=== PATIENT | male | born 1960 | race Caucasian/White ===

== ENCOUNTER → 2020-07-08 08:15 | Outpatient (BNVA) | payer BC, SELFPAY | PROVIDERS: PCP Family Medicine; Referring Provider Family Medicine; Visit Provider Nurse Practitioner Family | DX: Z76.89 Persons encountering health services in other specified circumstances (principal) ==

== ENCOUNTER → 2020-07-18 08:25 | Outpatient (BNVA) | payer BC, SELFPAY | PROVIDERS: PCP Family Medicine; Referring Provider Family Medicine; Visit Provider Internal Medicine Endocrinology, Diabetes & Metabolism | DX: Z76.89 Persons encountering health services in other specified circumstances (principal) ==

== ENCOUNTER → 2020-10-17 07:49 | Outpatient (BNVA) | payer BC, SELFPAY | PROVIDERS: PCP Family Medicine; Visit Provider Internal Medicine Endocrinology, Diabetes & Metabolism | DX: E11.65 Type 2 diabetes mellitus with hyperglycemia (principal); E11.21 Type 2 diabetes mellitus with diabetic nephropathy; E11.42 Type 2 diabetes mellitus with diabetic polyneuropathy; Z79.4 Long term (current) use of insulin; E66.9 Obesity, unspecified; E78.5 Hyperlipidemia, unspecified; I10 Essential (primary) hypertension; E55.9 Vitamin D deficiency, unspecified | CPT/HCPCS: 82947 ==

== ENCOUNTER 2020-11-06 08:58 | Outpatient (REF) | payer BC, SELFPAY ==
--- NOTE | 2020-11-06 09:03 | EMG_ITS ---
Bilateral tibial and peroneal motor studies were performed. Bilateral superficial peroneal and sural sensory studies were performed and tibial H-reflexes were obtained. Paraspinal muscles were tested with a needle. IMPRESSION: Severe sensory and motor somewhat asymmetrical, peripheral neuropathy with features of demyelination and axonal loss. I recommend formal neurology consultation for evaluation and exploration for the right cause. MD MUNIR Kwon/SAURAV / [id number]
== END 2020-11-06 08:59 | disposition home or self-care (01) ==
LOC: HO.NEURO 08:58
PROVIDERS: Visit Provider Family Medicine
DX: G90.09 Other idiopathic peripheral autonomic neuropathy (principal); I73.9 Peripheral vascular disease, unspecified; M54.9 Dorsalgia, unspecified
CPT/HCPCS: 95886; 95911

== ENCOUNTER 2020-11-28 10:36 | Outpatient (REF) | payer BC, SELFPAY ==
[2020-11-28 12:17] LABS: Alanine Aminotransferase 15 U/L (0-40); Anion Gap 16 (12-20); Aspartate Amino Transferase 10 U/L (5-37); Blood Urea Nitrogen 21 mg/dL (9-16); Carbon Dioxide 24 mmol/L (22-29); Chloride 104 mmol/L (96-108); Estimated Glomerular Filt Rate > 60; Potassium 4.4 mmol/L (3.3-5.1); Sodium 140 mmol/L (135-145)
== END 2020-11-28 10:37 | disposition home or self-care (01) ==
LOC: HO.LAB 10:36
PROVIDERS: PCP Family Medicine; Visit Provider Family Medicine
DX: I10 Essential (primary) hypertension (principal); E78.00 Pure hypercholesterolemia, unspecified; Z79.899 Other long term (current) drug therapy
CPT/HCPCS: 36415; 80051; 82550; 82565; 84450; 84460; 84520

== ENCOUNTER 2020-12-31 13:07 | Outpatient (REF) | payer OTHER, SELFPAY ==
[2020-12-31 15:01] LABS: Hematocrit 41.6 % (42-52); Mean Corpuscular HGB Conc 33.7 g/dl (31.0-36.0); Mean Corpuscular Hemoglobin 30.2 pg (27.0-33.0); Mean Corpuscular Volume 89.8 fL (80-98); Mean Platelet Volume 10.7 fL (9.4-12.4); Platelet Count 252 X10*3/uL (160-400); Red Blood Count 4.63 X10*6/uL (4.60-5.80); White Blood Count 5.9 X10*3/uL (4.8-10.8)
[2020-12-31 17:26] LABS: Creatinine Urine 315.78 mg/dL; Microalbum/Creatinine Ratio Ur 10.7 ug/mg cr
[2020-12-31 17:36] LABS: Alanine Aminotransferase 20 U/L (0-40); Albumin Level 4.2 g/dL (3.5-5.0); Alkaline Phosphatase 53 U/L (39-117); Anion Gap 14 (12-20); Aspartate Amino Transferase 14 U/L (5-37); Bilirubin Total 0.5 mg/dL (0.0-1.0); Blood Urea Nitrogen 22 mg/dL (9-16); Carbon Dioxide 26 mmol/L (22-29); Chloride 103 mmol/L (96-108); Cholesterol 173 mg/dL; Estimated Glomerular Filt Rate > 60; Glucose Fasting 177 mg/dL (60-99); HDL Cholesterol 43 mg/dL; LDL Cholesterol Calculated 106 mg/dl; Potassium 5.1 mmol/L (3.3-5.1); Sodium 138 mmol/L (135-145); Total Protein 7.2 g/dL (6.5-8.0); Triglycerides 123 mg/dL
[2020-12-31 17:48] LABS: Free T4 (Free Thyroxine) 0.85 ng/dL (0.71-1.85); Thyroid Stimulating Hormone 1.74 uIU/mL (0.32-4.0)
[2021-01-01 02:11] LABS: LDL Cholesterol Direct 116 mg/dL (<100)
[2021-01-01 05:35] LABS: Vitamin B12 243 pg/mL (200-900)
== END 2020-12-31 13:08 | disposition home or self-care (01) ==
LOC: HO.LAB 13:07
PROVIDERS: Internal Medicine Endocrinology, Diabetes & Metabolism; PCP Family Medicine; Visit Provider Nurse Practitioner Family
DX: R19.5 Other fecal abnormalities (principal); R14.0 Abdominal distension (gaseous); K59.00 Constipation, unspecified; E11.65 Type 2 diabetes mellitus with hyperglycemia
CPT/HCPCS: 36415; 80053; 80061; 82043; 82607; 83721; 84439; 84443; 85027; 99202

== ENCOUNTER → 2021-01-16 07:31 | Outpatient (BNVA) | payer OTHER, SELFPAY | PROVIDERS: PCP Family Medicine; Visit Provider Internal Medicine Endocrinology, Diabetes & Metabolism | DX: E11.65 Type 2 diabetes mellitus with hyperglycemia (principal); E11.21 Type 2 diabetes mellitus with diabetic nephropathy; E11.42 Type 2 diabetes mellitus with diabetic polyneuropathy; Z79.4 Long term (current) use of insulin; E66.9 Obesity, unspecified; E78.5 Hyperlipidemia, unspecified; I10 Essential (primary) hypertension; E55.9 Vitamin D deficiency, unspecified | CPT/HCPCS: 82947; 99212 ==

== ENCOUNTER 2021-02-17 06:24 | Day surgery (SDC) | payer OTHER, SELFPAY ==
--- NOTE | 2021-02-16 08:55 | HO.ANESPROP2 ---
HPI - Anesthesia Eval Consult details Narrative: 60yo M for Colonoscopy Plavix for PVD, h/o stroke History of uvulopalatopharyngoplasty PMFSH Active Problems Active Problems: All Active Problems (Updated 12/31/20 @ 14:39 by Jazmin Chopra, [facility]) Positive colorectal cancer screening using Cologuard test (Acute) Diabetic nephropathy associated with type 2 diabetes mellitus (Acute) Pulmonary nodules (Acute) Osteoarthritis (Acute) Obesity (BMI 30-39.9) (Acute) PVD (peripheral vascular disease) (Acute) Dyslipidemia (Acute) Hypertension (Acute) 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 of both eyes (Acute) Diabetic polyneuropathy associated with type 2 diabetes mellitus (Acute) [facility] (current) use of insulin (Acute) Vitamin D deficiency (Acute) Diabetes type 2, uncontrolled (Acute) Past Medical History Medical History Diabetes type 2, uncontrolled Diabetic nephropathy associated with type 2 diabetes mellitus Diabetic polyneuropathy associated with type 2 diabetes mellitus Dyslipidemia History of stroke Hypertension 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 of both eyes [facility] (current) use of insulin Obesity (BMI 30-39.9) Osteoarthritis Positive colorectal cancer screening using Cologuard test Pulmonary nodules PVD (peripheral vascular disease) Vitamin D deficiency Family History Family History Father Diabetes mellitus HTN (hypertension) Mother Lung disease Surgical History Surgical History History of uvulopalatopharyngoplasty Hx of appendectomy Hx of vein stripping Social History Social History Household Members: Spouse and Children Alcohol intake: current Alcohol intake frequency: does not drink Use of substances other than those prescribed or required for medical reasons: No Are you DNR?: No Advance Directives: No Advance Directives Information Provided: Yes Meds Allergies Allergy/AdvReac Type Severity Reaction Status Date / Time meperidine [From DEMEROL] Allergy Intermediate BECAME Verified 02/17/21 06:45 VIOLENT Home Medications Medication Instructions Recorded Confirmed Last Taken Type citalopram 40 mg tablet 40 mg PO DAILY 10/17/20 01/16/21 Unknown History clopidogrel 75 mg tablet 75 mg PO DAILY 10/17/20 01/16/21 02/16/21 18:00 History omeprazole 20 mg capsule,delayed 20 mg PO DAILY 10/17/20 01/16/21 Unknown History release pregabalin 200 mg capsule 200 mg PO BID 01/16/21 01/16/21 Unknown History Exam Exam Date and Time: February 16, 2021 1940 Assessment and Plan Assessment Anesthesia Assessment: Chart Reviewed
[2021-02-17 06:47] VITALS: BMI 37.6
[2021-02-17 06:55] VITALS: BP 134/94; PULSE 70; RESP 20; TEMP 36.3; O2SAT 98
[2021-02-17 07:05] LABS: Glucose, Whole Blood 98 mg/dL (60-115)
--- NOTE | 2021-02-17 07:05 | HO.ANESPROP2 ---
[facility] Active Problems Active Problems: All Active Problems (Updated 12/31/20 @ 14:39 by Jazmin Chopra, [facility]) Positive colorectal cancer screening using Cologuard test (Acute) Diabetic nephropathy associated with type 2 diabetes mellitus (Acute) Pulmonary nodules (Acute) Osteoarthritis (Acute) Obesity (BMI 30-39.9) (Acute) PVD (peripheral vascular disease) (Acute) Dyslipidemia (Acute) Hypertension (Acute) 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 of both eyes (Acute) Diabetic polyneuropathy associated with type 2 diabetes mellitus (Acute) [facility] (current) use of insulin (Acute) Vitamin D deficiency (Acute) Diabetes type 2, uncontrolled (Acute) Past Medical History Medical History Diabetes type 2, uncontrolled Diabetic nephropathy associated with type 2 diabetes mellitus Diabetic polyneuropathy associated with type 2 diabetes mellitus Dyslipidemia History of stroke Hypertension 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 of both eyes [facility] (current) use of insulin Obesity (BMI 30-39.9) Osteoarthritis Positive colorectal cancer screening using Cologuard test Pulmonary nodules PVD (peripheral vascular disease) Vitamin D deficiency Family History Family History Father Diabetes mellitus HTN (hypertension) Mother Lung disease Surgical History Surgical History History of uvulopalatopharyngoplasty Hx of appendectomy Hx of vein stripping Social History Social History Household Members: Spouse and Children Alcohol intake: current Alcohol intake frequency: does not drink Smoking Status: Former smoker Use of substances other than those prescribed or required for medical reasons: No Are you DNR?: No Advance Directives: No Advance Directives Information Provided: Yes Meds Allergies Allergy/AdvReac Type Severity Reaction Status Date / Time meperidine [From DEMEROL] Allergy Intermediate BECAME Verified 02/17/21 06:45 VIOLENT Active Medications: Current Medications Generic Name Dose Route Start Last Admin Trade Name Freq PRN Reason Stop Dose Admin Lactated Ringer's 1,000 mls @ 100 mls/hr 02/17/21 06:45 Lr IVCONT .Q10H [facility] Home Medications Medication Instructions Recorded Confirmed Last Taken Type citalopram 40 mg tablet 40 mg PO DAILY 10/17/20 01/16/21 Unknown History clopidogrel 75 mg tablet 75 mg PO DAILY 10/17/20 01/16/21 02/16/21 18:00 History omeprazole 20 mg capsule,delayed 20 mg PO DAILY 10/17/20 01/16/21 Unknown History release pregabalin 200 mg capsule 200 mg PO BID 01/16/21 01/16/21 Unknown History Exam Exam Date and Time: February 17, 2021 0705 Height,Weight and Vital Signs: Height 5 ft 11 in Weight 122.47 kg Last Vital Signs Temp 97.3 F 02/17/21 06:55 Pulse 70 02/17/21 06:55 Resp 20 02/17/21 06:55 BP 134/94 H 02/17/21 06:55 Pulse Ox 98 02/17/21 06:55 Airway Mallampati Class: III TM Dist: >3cm Neck ROM: Full Denture: Upper Partial: Lower Heart: RRR Lungs: CTA
[2021-02-17] MEDS: Lactated Ringers 1,000 ML 100 ML IVCONT (07:12)
--- NOTE | 2021-02-17 07:36 | P.OP_ITS ---
Operative Note Operative Note Date of Service: 02/17/21 Narrative: Pre-op diagnosis: Colon cancer screening, positive Cologuard test Post-op diagnosis: other (Colon polyps, diverticulosis) Procedure: COLONOSCOPY TILL CECUM WITH SNARE POLYPECTOMY Consent: Indications for the procedure and potential complications of bleeding, perforation, reaction to medications and missed diagnosis were discussed with the patient and informed consent was obtained. Instrument: Olympus CF H 190 L variable stiffness adult colonoscope Monitoring: Vital signs and clinical assessment, intermittent blood pressure monitoring, continuous EKG monitoring, Pulse oximetry and Carbon Dioxide monitoring were done throughout the procedure. Colon withdrawl time was 25 minutes. Procedure: The patient was placed in the left lateral decubitis position and pre-procedure medications were administered. After a digital rectal examination of the ano-rectum, the video colonoscope was inserted into the rectum and advanced through the colon to the cecum. The colonoscope was slowly withdrawn in a retrograde panoramic fashion and the colon mucosa was carefully examined including a retroflexed view of the rectum. Findings and interventions are described below. Procedure Difficulty: Without difficulty Findings: Terminal Ileum: Not evaluated Cecum: Diverticulosis Ascending Colon: A 12 mm sessile polyp in the distal AC removed with a hot snare - polyp was not retrieved. A 2 cm sessile polyp in the distal AC removed with a hot snare. Moderate diverticulosis. Transverse Colon: Moderate diverticulosis Descending Colon: Moderate diverticulosis Sigmoid Colon: Two 10 to 20 mm sessile polyps - removed with a hot snare. A 25 mm pedunculated polyp removed with a hot snare. Moderate diverticulosis Rectum: Multiple diminutive appearing polyps - 2 larger polyps removed with the hot and cold snare. Ano-rectum: Normal Colon preparation: Good after copious irrigation Impression and Post Procedure Diagnosis: Colonoscopy Findings: Seven medium to large sized polyps removed Moderate diverticulosis seen in the entire colon Plan: Await pathology results Patient has an appointment on 03/06/21 in the GI Clinic with Jazmin Chopra FNP-PAPO. Repeat Colonoscopy interval based on path results - in 1-2 years if polyps are adenomatous and 10 years if polyps are hyperplastic. Above findings were reviewed with the patient and colon polyps and diverti culosis handouts were given in the discharge area Surgeon: Torrey Maxwell MD Anesthesia: MAC (Dr Godfrey) Was an Credit Collections Analyst used for this Procedure?: Yes Credit Collections Analyst: Marj Connell Estimated blood loss (mL): 0 Pathology: other (A. ASCENDING COLON POLYPS B. SIGMOID POLYP C. SIGMOID POLYP AT 30CM D. RECTAL POLYPS) Condition: stable Disposition: PACU
--- NOTE | 2021-02-17 07:36 | MHC.SHP ---
Pre-Procedural Eval Section A The patient is an INPATIENT: No The History & Physical has been completed within 30 days and I have reviewed it.: No Section B Chief Complaint: Screening Details of Present Illness: colon cancer screening, positive cologuard test Relevant Family History (Specify if Yes): No Relevant Social History: None Present Medications: see Short Stay Collaborative assessment Medical History: Significant History (Diabetes type 2, uncontrolled Diabetic nephropathy associated with type 2 diabetes mellitus Diabetic polyneuropathy associated with type 2 diabetes mellitus Dyslipidemia History of stroke Hypertension 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 of both eyes [facility] (current) use of insulin Obesity (BMI 30-39.9) Oste) History of Previous Operations: Relevant previous surgery/procedure and date(s) (History of uvulopalatopharyngoplasty Hx of appendectomy Hx of vein stripping) Allergies: Allergies Allergy/AdvReac Type Severity Reaction Status Date / Time meperidine [From DEMEROL] Allergy Intermediate BECAME Verified 02/17/21 06:45 VIOLENT Review of Systems Sugical H&P ROS: Negative: Constitution, Cardiovascular and Respiratory and Yes, Specify: Gastrointestinal (constipation) Exam Surgical H&P Exam: Normal: Heart, Normal: Lungs, Normal: Extremities and Normal: Abdomen Plan Diagnosis/Plan: Unchanged I have reviewed the history and physical and performed a pertinent physical examination on my patient. No changes have occurred unless specified.
[2021-02-17 08:32] VITALS: BP 126/67; PULSE 79; RESP 16; TEMP 36.1; O2SAT 98
[2021-02-17 08:47] VITALS: BP 123/78; PULSE 74; RESP 16; TEMP 36.1; O2SAT 96
--- NOTE | 2021-02-17 12:53 | HO.POSTANES ---
Post Anesthesia Evaluation Post Anesthesia Evaluation Vital Signs: Vital Signs Temp Pulse Resp BP Pulse Ox 02/17/21 08:47 97 F 74 16 123/78 96 02/17/21 08:32 97 F 79 16 126/67 98 02/17/21 06:55 97.3 F 70 20 134/94 H 98 Anesthesia: Monitored Mental Status: Awake Pain Control: Satisfactory Nausea/Vomiting: None Hydration: Adequate Anesthesia-Related Issues: No Anes. Related Issues
== END 2021-02-17 09:21 | disposition home or self-care (01) ==
PROVIDERS: PCP Family Medicine; Visit Provider Internal Medicine Gastroenterology
PROC: 0DJD8ZZ Inspection of Lower Intestinal Tract, Via Natural or Artificial Opening Endoscopic (ICD-10-PCS; CPT 45378; principal; 2021-02-17 08:30)
DX: R19.5 Other fecal abnormalities (principal); D12.2 Benign neoplasm of ascending colon; D12.5 Benign neoplasm of sigmoid colon; K62.1 Rectal polyp; K57.30 Diverticulosis of large intestine without perforation or abscess without bleeding; I10 Essential (primary) hypertension; E11.42 Type 2 diabetes mellitus with diabetic polyneuropathy; E11.21 Type 2 diabetes mellitus with diabetic nephropathy; Z79.4 Long term (current) use of insulin; H35.033 Hypertensive retinopathy, bilateral; E78.5 Hyperlipidemia, unspecified; Z79.899 Other long term (current) drug therapy
CPT/HCPCS: 45385; 82947; 88305

== ENCOUNTER → 2021-03-06 11:33 | Outpatient (BNVA) | payer OTHER, SELFPAY | PROVIDERS: Referring Provider Family Medicine; Visit Provider Nurse Practitioner Family | DX: D36.9 Benign neoplasm, unspecified site (principal); Z98.890 Other specified postprocedural states | CPT/HCPCS: 99212 ==

== ENCOUNTER → 2021-04-16 07:40 | Outpatient (BNVA) | payer BC, SELFPAY | PROVIDERS: Visit Provider Internal Medicine Endocrinology, Diabetes & Metabolism | DX: E11.65 Type 2 diabetes mellitus with hyperglycemia (principal); E11.21 Type 2 diabetes mellitus with diabetic nephropathy; E11.42 Type 2 diabetes mellitus with diabetic polyneuropathy; E66.9 Obesity, unspecified; E78.5 Hyperlipidemia, unspecified; E55.9 Vitamin D deficiency, unspecified; I10 Essential (primary) hypertension; Z79.4 Long term (current) use of insulin | CPT/HCPCS: 82947 ==

== ENCOUNTER 2021-09-22 08:20 | Outpatient (REF) | payer BC, SELFPAY ==
--- NOTE | ~2021-09-22 | XR_ITS ---
EXAMINATION: XR knee LT 4V, XR knee RT 4V CLINICAL INFORMATION: Reason for Exam BILATERAL KNEE PAIN COMPARISON: Right knee MRI 06/26/2016. Bilateral knee radiographs 06/24/2016. TECHNIQUE: 4 view series of the left and right knees. FINDINGS: Left knee: Moderate lateral compartment joint space narrowing and mild osteophytosis of the lateral compartment is visualized. Minimal osteophytosis of the medial femoral condyle without joint space narrowing of the medial compartment. Mild osteophytosis of the lateral patellar facet.. No joint effusion. Mild scattered vascular calcifications. Partially visualized endovascular stent within the distal thigh. The previous noted ossicle within the distal patellar ligament is again visualized. Right knee: Mild joint space narrowing and minimal osteophytosis of the lateral patellar facet is noted. No arthropathic changes of the medial or lateral compartments visualized. XR/XR knee RT 4V IMPRESSION: Left knee: *Mild-moderate tricompartmental osteoarthritis with findings most pronounced the lateral compartment. Findings are progressed compared with 06/24/2016. Right knee: *Mild patellofemoral osteoarthritis slightly progressed compared with 06/24/2016.
--- NOTE | ~2021-09-22 | XR_ITS ---
EXAMINATION: XR knee LT 4V, XR knee RT 4V CLINICAL INFORMATION: Reason for Exam BILATERAL KNEE PAIN COMPARISON: Right knee MRI 06/26/2016. Bilateral knee radiographs 06/24/2016. TECHNIQUE: 4 view series of the left and right knees. FINDINGS: Left knee: Moderate lateral compartment joint space narrowing and mild osteophytosis of the lateral compartment is visualized. Minimal osteophytosis of the medial femoral condyle without joint space narrowing of the medial compartment. Mild osteophytosis of the lateral patellar facet.. No joint effusion. Mild scattered vascular calcifications. Partially visualized endovascular stent within the distal thigh. The previous noted ossicle within the distal patellar ligament is again visualized. Right knee: Mild joint space narrowing and minimal osteophytosis of the lateral patellar facet is noted. No arthropathic changes of the medial or lateral compartments visualized. XR/XR knee LT 4V IMPRESSION: Left knee: *Mild-moderate tricompartmental osteoarthritis with findings most pronounced the lateral compartment. Findings are progressed compared with 06/24/2016. Right knee: *Mild patellofemoral osteoarthritis slightly progressed compared with 06/24/2016.
[2021-09-22 09:53] LABS: Alanine Aminotransferase 15 U/L (0-40); Anion Gap 10 (12-20); Aspartate Amino Transferase 14 U/L (5-37); Blood Urea Nitrogen 17 mg/dL (9-16); Carbon Dioxide 27 mmol/L (22-29); Chloride 106 mmol/L (96-108); Estimated Glomerular Filt Rate > 60; Potassium 4.6 mmol/L (3.3-5.1); Sodium 138 mmol/L (135-145)
== END 2021-09-22 08:21 | disposition home or self-care (01) ==
LOC: HO.LAB 08:20
PROVIDERS: Visit Provider Family Medicine
DX: I10 Essential (primary) hypertension (principal); E78.00 Pure hypercholesterolemia, unspecified; M25.562 Pain in left knee; M25.561 Pain in right knee; Z79.899 Other long term (current) drug therapy
CPT/HCPCS: 36415; 73564; 80051; 82550; 82565; 84450; 84460; 84520

== ENCOUNTER → 2021-09-23 10:59 | Outpatient (BNVA) | payer BC, SELFPAY | PROVIDERS: PCP Family Medicine; Visit Provider Nurse Practitioner Gerontology ==

== ENCOUNTER 2021-09-24 10:28 | Outpatient (REF) | payer BC, SELFPAY ==
[2021-09-24 11:46] LABS: Estimated Average Glucose 143 mg/dL; Hemoglobin A1c % 6.6 %
== END 2021-09-24 10:29 | disposition home or self-care (01) ==
LOC: HO.LAB 10:28
PROVIDERS: PCP Family Medicine; Visit Provider Nurse Practitioner Gerontology
DX: E11.65 Type 2 diabetes mellitus with hyperglycemia (principal)
CPT/HCPCS: 36415; 83036

== ENCOUNTER → 2021-10-22 08:55 | Outpatient (BNVA) | payer BC, SELFPAY | PROVIDERS: PCP Family Medicine; Visit Provider Registered Nurse Diabetes Educator ==

== ENCOUNTER 2021-12-14 08:33 | Outpatient (REF) | payer BC, SELFPAY ==
[2021-12-14 10:09] LABS: Estimated Average Glucose 140 mg/dL; Hemoglobin A1c % 6.5 %
[2021-12-14 10:20] LABS: Alanine Aminotransferase 19 U/L (0-40); Albumin Level 4.1 g/dL (3.5-5.0); Alkaline Phosphatase 50 U/L (39-117); Anion Gap 13 (12-20); Aspartate Amino Transferase 18 U/L (5-37); Bilirubin Total 0.5 mg/dL (0.0-1.0); Blood Urea Nitrogen 17 mg/dL (9-16); Calcium 9.6 mg/dL (8.4-10.2); Carbon Dioxide 26 mmol/L (22-29); Chloride 102 mmol/L (96-108); Cholesterol 187 mg/dL; Estimated Glomerular Filt Rate > 60; Glucose Fasting 135 mg/dL (60-99); HDL Cholesterol 39 mg/dL; LDL Cholesterol Calculated 121 mg/dl; Potassium 4.8 mmol/L (3.3-5.1); Sodium 136 mmol/L (135-145); Total Protein 7.3 g/dL (6.5-8.0); Triglycerides 138 mg/dL
[2021-12-14 10:45] LABS: Vitamin D 25-OH Total 24.4 ng/mL (>30)
[2021-12-16 00:01] LABS: LDL Cholesterol Direct 131 mg/dL (<100)
== END 2021-12-14 08:34 | disposition home or self-care (01) ==
LOC: HO.LAB 08:33
PROVIDERS: PCP Family Medicine; Visit Provider Nurse Practitioner Gerontology
DX: E11.65 Type 2 diabetes mellitus with hyperglycemia (principal); E55.9 Vitamin D deficiency, unspecified
CPT/HCPCS: 36415; 80053; 80061; 82043; 82306; 83036; 83721

== ENCOUNTER → 2021-12-25 08:23 | Outpatient (BNVA) | payer BC, SELFPAY | PROVIDERS: PCP Family Medicine; Visit Provider Nurse Practitioner Gerontology | DX: E11.65 Type 2 diabetes mellitus with hyperglycemia (principal); E66.9 Obesity, unspecified; E78.5 Hyperlipidemia, unspecified; I10 Essential (primary) hypertension; E55.9 Vitamin D deficiency, unspecified; Z79.4 Long term (current) use of insulin | CPT/HCPCS: 82947 ==

== ENCOUNTER → 2022-01-28 09:00 | Outpatient (BNVA) | payer BC, SELFPAY | PROVIDERS: PCP Family Medicine; Visit Provider Registered Nurse Diabetes Educator | DX: Z13.89 Encounter for screening for other disorder (principal) ==

== ENCOUNTER 2022-04-06 08:02 | Outpatient (RCR) | payer OTHER, SELFPAY | END 2022-10-11 14:28 | disposition home or self-care (01) | LOC: HO.WCC 08:02 | PROVIDERS: PCP Family Medicine; Visit Provider Surgery | DX: E11.621 Type 2 diabetes mellitus with foot ulcer (principal); L97.524 Non-pressure chronic ulcer of other part of left foot with necrosis of bone; Z79.2 Long term (current) use of antibiotics; Z79.899 Other long term (current) drug therapy | CPT/HCPCS: 11042; 11044; 87070; 87073; 87077; 87147; 87186; 87205; 88305; 88307; 88311; 97597 ==

== ENCOUNTER 2022-04-24 11:12 | Outpatient (REF) | payer OTHER, SELFPAY ==
--- NOTE | ~2022-04-24 | XR_ITS ---
EXAMINATION: XR FOOT, RIGHT CLINICAL INFORMATION: Nonhealing wound. Rule out osteomyelitis. COMPARISON: Right foot x-rays 04/13/2019 TECHNIQUE: AP, lateral, and oblique views of the right foot. FINDINGS: Bones of the midfoot are well aligned. There is no tarsal, metatarsal or phalangeal fracture. Mild degenerative changes of the first TMT and MTP joints with mild degenerative changes of scattered IP joints. Metallic linear foreign body within the soft tissues between the second and third proximal phalanges is again noted and demonstrates interval fracturing. There is some soft tissue swelling of the first toe. Ill-defined hyperdensity overlying the first toe is nonspecific but felt to represent an overlying bandage. There is no underlying osseous abnormality to suggest osteomyelitis. XR/XR foot RT min 3V IMPRESSION: -Soft tissue swelling of the first toe without underlying cortical irregularity to suggest osteomyelitis. Some ill-defined hyperdensity overlying the first toe is nonspecific but felt to represent an overlying bandage. Clinical correlation recommended.
[2022-04-24 13:30] LABS: MANUAL DIFF FLAG NO
[2022-04-24 13:33] LABS: Basophils Percent Auto 0.6 % (0-2); Eosinophils Absolute Auto 0.2 X10*3/uL (0.0-0.4); Hematocrit 40.2 % (42.0-52.0); Hemoglobin 13.7 g/dl (14.0-18.0); Imm Gran Abs Auto 0.01 X10*3/uL (0.00-0.03); Imm Gran Pct Auto 0.2 % (0.0-0.4); Lymphocytes Absolute Auto 1.3 X10*3/uL (1.2-4.9); Lymphocytes Percent Auto 25.9 % (20-40); Mean Corpuscular HGB Conc 34.1 g/dl (31.0-36.0); Mean Corpuscular Volume 88.2 fL (80.0-98.0); Mean Platelet Volume 10.9 fL (9.4-12.4); Monocytes Absolute Auto 0.5 X10*3/uL (0.1-1.2); Monocytes Percent Auto 9.5 % (2-11); Neutrophils Percent Auto 60.8 % (45-73); Platelet Count 247 X10*3/uL (160-400); Red Blood Count 4.56 X10*6/uL (4.60-5.80); Red Cell Distribution Width 12.3 % (11.0-16.0)
[2022-04-24 13:43] LABS: Estimated Average Glucose 151 mg/dL; Hemoglobin A1c % 6.9 %
[2022-04-24 13:44] LABS: Anion Gap 13 (12-20); Blood Urea Nitrogen 19 mg/dL (9-16); C Reactive Protein 0.27 mg/dL (< or = 0.50); Calcium 8.8 mg/dL (8.4-10.2); Carbon Dioxide 27 mmol/L (22-29); Chloride 105 mmol/L (96-108); Estimated Glomerular Filt Rate > 60; Glucose Random 182 mg/dL (60-115); Potassium 4.4 mmol/L (3.3-5.1); Sodium 141 mmol/L (135-145)
[2022-04-24 14:16] LABS: Erythrocyte Sedimentation Rate 9 MM/HR (0-15)
== END 2022-04-24 11:13 | disposition home or self-care (01) ==
LOC: HO.HMGCX 11:12
PROVIDERS: PCP Family Medicine; Visit Provider Physician Assistant
DX: L97.512 Non-pressure chronic ulcer of other part of right foot with fat layer exposed (principal); L97.522 Non-pressure chronic ulcer of other part of left foot with fat layer exposed
CPT/HCPCS: 36415; 73630; 80048; 83036; 84134; 85025; 85652; 86140

== ENCOUNTER 2022-06-22 11:45 | Emergency (ER) | payer OTHER, SELFPAY ==
[2022-06-22 11:56] VITALS: BP 147/80; PULSE 71; RESP 18; TEMP 37.4; O2SAT 98; BMI 36.2
[2022-06-22 13:38] LABS: MANUAL DIFF FLAG NO
[2022-06-22 13:48] LABS: Basophils Percent Auto 0.5 % (0-2); Eosinophils Percent Auto 0.5 % (0-4); Hematocrit 42.7 % (42.0-52.0); Hemoglobin 14.4 g/dl (14.0-18.0); Imm Gran Abs Auto 0.01 X10*3/uL (0.00-0.03); Imm Gran Pct Auto 0.2 % (0.0-0.4); Lymphocytes Absolute Auto 1.1 X10*3/uL (1.2-4.9); Lymphocytes Percent Auto 24.9 % (20-40); Mean Corpuscular HGB Conc 33.7 g/dl (31.0-36.0); Mean Corpuscular Hemoglobin 29.6 pg (27.0-33.0); Mean Corpuscular Volume 87.7 fL (80.0-98.0); Mean Platelet Volume 10.1 fL (9.4-12.4); Monocytes Absolute Auto 0.5 X10*3/uL (0.1-1.2); Monocytes Percent Auto 12.4 % (2-11); Neutrophils Absolute Auto 2.7 x10*3/uL (2.0-8.3); Neutrophils Percent Auto 61.5 % (45-73); Platelet Count 191 X10*3/uL (160-400); Red Blood Count 4.87 X10*6/uL (4.60-5.80); Red Cell Distribution Width 12.6 % (11.0-16.0); White Blood Count 4.3 X10*3/uL (4.8-10.8)
[2022-06-22 13:56] LABS: Anion Gap 19 (12-20); Blood Urea Nitrogen 18 mg/dL (9-16); Calcium 8.9 mg/dL (8.4-10.2); Carbon Dioxide 21 mmol/L (22-29); Chloride 101 mmol/L (96-108); Creatinine Clr Calc Pharmacy 96.2; Estimated Glomerular Filt Rate > 60; Glucose Random 135 mg/dL (60-115); Potassium 3.8 mmol/L (3.3-5.1); Sodium 137 mmol/L (135-145)
[2022-06-22 14:12] LABS: COVID-19 Test Negative (Negative); IDNOW Serial# 16C4AD1C
[2022-06-22 15:49] VITALS: BP 147/77; PULSE 77; RESP 18; TEMP 36.5; O2SAT 99
== END 2022-06-22 22:39 | disposition left against medical advice (07) ==
PROVIDERS: Emergency Provider Emergency Medicine; PCP Family Medicine
DX: R11.2 Nausea with vomiting, unspecified (principal); Z20.822 Contact with and (suspected) exposure to COVID-19; Z79.899 Other long term (current) drug therapy
CPT/HCPCS: 80048; 85025; 87635; 99282; 99283

== ENCOUNTER 2022-06-24 18:45 | Emergency (ER) | payer OTHER, SELFPAY ==
--- NOTE | ~2022-06-24 | CT_ITS ---
EXAMINATION: CT ABDOMEN AND PELVIS WITHOUT CONTRAST CLINICAL INFORMATION: Diffuse abdominal pain. COMPARISON: Multiple priors, most recent abdominal ultrasound dated 11/16/[address] abdomen/pelvis dated 10/09/2016. TECHNIQUE: Multidetector volumetric imaging was performed from the superior aspect of the liver through the pubic symphysis. Sagittal and coronal reformatted images were obtained on the technologist's workstation. This CT examination was performed using dose optimization techniques as appropriate, variously including the following: *Automated exposure control. *Adjustment of mA and/or kV according to patient size (this includes techniques or standardized protocols for targeted exams where dose is matched to indication/reason for exam; i.e. extremities or head). *Use of iterative reconstruction technique. DLP: 1044 mGy-cm FINDINGS: LUNG BASES: Linear scarring within the left lung base. LIVER, GALLBLADDER, AND BILIARY TREE: The liver is normal in size, shape, and attenuation. No focal hepatic lesion or biliary ductal dilatation is present. The gallbladder is unremarkable with no evidence of radiopaque gallstones, gallbladder wall thickening, or obvious pericholecystic inflammatory changes. PANCREAS: Atrophic. SPLEEN: Unremarkable. ADRENAL GLANDS: Unremarkable. KIDNEYS AND URETERS: The kidneys are normal in size and attenuation. Anterior right midpole renal parenchymal scarring and calcification, unchanged. No hydronephrosis, hydroureter, or calculi seen. No perinephric stranding. BLADDER: Unremarkable. GASTROINTESTINAL TRACT: Sigmoid diverticulosis without evidence of acute diverticulitis. No bowel wall thickening or inflammatory change. No small or large bowel obstruction. Appendix not identified, however, no lower quadrant inflammatory change. PERITONEAL CAVITY: No intra-abdominal free air or free fluid. No intra-abdominal mass or organized fluid collection/abscess formation. ABDOMINAL WALL: No significant hernia is appreciated. LYMPH NODES: No significant lymphadenopathy. VASCULAR: No abdominal aortic dilatation. Vascular stent grafts within the common iliac veins. Scattered atherosclerotic calcifications. PELVIC VISCERA: The prostate and seminal vesicles are unremarkable. OSSEOUS STRUCTURES: Unremarkable. CT/CT abdomen pelvis wo IV con IMPRESSION: 1. Sigmoid diverticulosis without evidence of acute diverticulitis. No small or large bowel obstruction. 2. No intra-abdominal mass, lymphadenopathy, or ascites. 3. No renal or ureteral stone. No hydronephrosis or hydroureter. Fleischner guidelines were followed.
--- NOTE | 2022-06-24 18:54 | ECG_ITS ---
Test Reason : NAUSEA/DIARRHEA Blood Pressure : / mmHG Vent. Rate : 059 BPM Atrial Rate : 059 BPM P-R Int : 178 ms QRS Dur : 098 ms QT Int : 470 ms P-R-T Axes : 053 -15 -15 degrees QTc Int : 465 ms Sinus bradycardia Minimal voltage criteria for LVH, may be normal variant ( R in aVL ) Inferior infarct , age undetermined Abnormal ECG No previous ECGs available Referred By: Ana Zamarripa Electronically Signed By:JESSENIA FARR
[2022-06-24 18:58] VITALS: BP 172/92; BP 190/89; PULSE 61; PULSE 63; RESP 22; O2SAT 99; BMI 36.2
--- NOTE | 2022-06-24 19:08 | ED.ABDPAIN ---
HPI - Abdominal Pain General Chief Complaint: Nausea/Vomiting/Diarrhea Stated Complaint: Abdominal pain Time Seen by Provider: 06/24/22 18:50 Source: patient and EMS Mode of arrival: EMS Limitations: no limitations History of Present Illness HPI narrative: patient comes to the emergency room complaining of 4-5 days of nausea, vomiting, diarrhea. Patient states that he does not have significant abdominal pain. Patient denies fever chills, no URI or UTI symptoms. Patient states that before his symptoms started, he ate lobster brisk. All of patient's symptoms started a few hours after eating. Also, patient has been treated with cephalexin for tooth infection for approximately 1 week. Related Data Home Medications Medication Instructions Recorded Confirmed citalopram 40 mg tablet 40 mg PO DAILY 10/17/20 12/25/21 clopidogrel 75 mg tablet 75 mg PO DAILY 10/17/20 09/23/21 pregabalin 200 mg capsule 200 mg PO BID 01/16/21 12/25/21 Previous Rx's Medication Instructions Recorded lactobacillus combination no.8 3 3,000 mmu cells PO DAILY #90 caps 03/06/21 billion cell capsule (Adult Probiotic) FreeStyle Precision Nabil Strips #25 ea 04/16/21 (blood sugar diagnostic) pen needle, diabetic 32 gauge x #400 ea 04/16/21 (BD Deysi 2nd Gen Pen Needle) flash glucose sensor (FreeStyle #1 ea 09/24/21 Hema 2 Sensor kit) cholecalciferol (vitamin D3) 50 50 mcg PO DAILY #90 caps 12/25/21 mcg (2,000 unit) capsule insulin glargine U-300 conc 300 50 unit (0.1667 mL) subcut DAILY 12/25/21 unit/mL (1.5 mL) subcutaneous pen 90 days #20 mL (Toujeo SoloStar U-300 Insulin) insulin lispro 100 unit/mL See Rx Instructions subcut QIDACHS 02/16/22 subcutaneous pen (Humalog KwikPen #45 mL (U-100) Insulin) atorvastatin 20 mg tablet 20 mg PO DAILY #90 tabs 04/20/22 flash glucose sensor (FreeStyle #2 ea 04/29/22 Hema 2 Sensor kit) semaglutide 1 mg/dose (4 mg/3 mL) 1 mg (0.75 mL) subcut QWEEK 90 05/06/22 subcutaneous pen injector (Ozempic) days #9 mL amlodipine 2.5 mg tablet 2.5 mg PO DAILY 90 days #90 tabs 05/17/22 loperamide 2 mg capsule 2 mg PO Q4H PRN loose stool #14 06/24/22 caps prochlorperazine maleate 5 mg 5 mg PO TID PRN nausea and 06/24/22 tablet (Compazine) vomiting #14 tabs Allergies Allergy/AdvReac Type Severity Reaction Status Date / Time meperidine [From DEMEROL] Allergy Intermediate BECAME Verified 12/25/21 08:57 VIOLENT Review of Systems Review of Systems Constitutional : No Weight loss, No Fever, No Chills, No Night Sweats, No Fatigue, No Malaise ENT/Mouth : No Hearing loss, No Ear Pain, No Nasal Congestion, No Sinus Pain, No Hoarseness, No sore throat, No Rhinorrhea, No Swallowing Difficulty Eyes: No Eye Pain, No Swelling, No Redness, No Foreign Body, No Discharge, No Vision Changes Cardiovascular : No Chest Pain, No SOB, No Dyspnea on Exertion, No Orthopnea, No Edema, No Palpitations Respiratory : No Cough, No Sputum, No Wheezing, No Smoke Exposure, No Dyspnea Gastrointestinal : complaining of nausea, vomiting, diarrhea.No Constipation, No abdominal Pain, No Hematochezia, No Melena Genitourinary : no irregular bleeding, No Dysuria, No Urinary Frequency, No Hematuria, No Urinary Incontinence, No Urgency, No Flank Pain, No Urinary Flow Changes, No Hesitancy Musculoskeletal : No joint pain, No Myalgias, No Joint Swelling Skin : No Skin Lesions, No rash Neuro : No Weakness, No Numbness, No Paresthesias, No Loss of Consciousness, No Dizziness, No Headache Psych : No Anxiety/Panic, No Depression, No SI/HI/AH/VH, No Social Issues, Heme/Lymph: No Bruising, No Bleeding,No Lymphadenopathy Endocrine : No Polyuria, No Polydipsia, No Temperature Intolerance PMFSH Past Medical History Medical History Diabetes type 2, uncontrolled Diabetic nephropathy associated with type 2 diabetes mellitus Diabetic polyneuropathy associated with type 2 diabetes mellitus Dyslipidemia History of stroke Hypertension 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 of both eyes correction (current) use of insulin Obesity (BMI 30-39.9) Osteoarthritis Positive colorectal cancer screening using Cologuard test Pulmonary nodules PVD (peripheral vascular disease) Tubular adenoma Vitamin D deficiency Surgical History History of uvulopalatopharyngoplasty Hx of appendectomy Hx of vein stripping Family History Family History Father Diabetes mellitus HTN (hypertension) Mother Lung disease Social History Social History Household Members: Spouse and Children Alcohol intake: current Alcohol intake frequency: does not drink Patient Tobacco Use Status: Former Tobacco user Tobacco use type: Cigarette Cigarette Packs Per Day: 1 Years Smoked: 30 Advance Directives: No Advance Directives Information Provided: No Physical Exam ED Vital Signs: Vital Signs - 24 hr 06/24/22 18:58 06/24/22 20:00 Temperature 98.0 F Pulse Rate 61 59 Respiratory Rate 22 H 18 Blood Pressure 190/89 H 176/96 H Pulse Oximetry 99 98 Oxygen Delivery Method Room Air Room Air BMI result Body Mass Index 36.2 Const Other: Appearance: Alert. Oriented X3. Uncomfortable, seems nauseous Eyes: Pupils equal, round and reactive to light. ENT: Pharynx normal. Neck: Normal inspection. Neck supple. No lymph nodes noted. No crepitus CVS: Normal heart rate and rhythm. Pulses normal. Normal S1 and S2 Respiratory: No respiratory distress. Breath sounds normal. No Wheezing. No rales Abdomen: Soft and nontender. No rigidity. No distention. Skin: Skin warm and dry. Normal skin color. Normal skin turgor. Extremities: No lower extremity edema. No Lacerations. No Rash Neuro: Oriented X 3. No motor deficit. No sensory deficit. Moving all extremities. No slurred speech. CN 2 through 12 grossly intact Psych: calm, cooperative, normal affect Course Course Course Narrative: all of patient's labs and imaging pending. Per EMS, patient EKG showed prolonged QTC, patient receiving IV Compazine And IV fluids at this time. Patient received 600 cc of normal saline by EMS patient's white blood cell count is 4.3, lactic acid within normal limits, patient has no fever or chills, no hypotension. Sepsis is not suspected, CT scan does not show any acute abnormalities. Patient likely having gastroenteritis. We attempted to get a stool sample to rule out C difficile. However, the patient did not have any diarrhea while he was in the emergency room, unlikely to be C diff. patient's troponin is 36.6, slightly bumped. I discussed with the patient that ideally we should check his troponin again at 23:00, 3 hours from the original troponin. Patient states that he has no chest pain or shortness of breath, patient declined to stay. EKG does not show any acute abnormalities, Sinus bradycardia, heart rate 59, nonspecific T-wave abnormalities in leads 3 and AVF, no ST segment depression or elevation. A 2 L of IV fluids was offered. Patient states that he feels weak but he feels okay to be discharged at this time, declined a 2 L of IV fluids patient's magnesium was slightly decreased at 1.5, patient was given p.o. magnesium oxide. MDM - Abdominal Pain Lab Data Result diagrams: 06/24/22 19:49 06/24/22 19:50 Labs: Lab Results 06/24/22 06/24/22 06/24/22 Range/Units 19:49 19:49 19:49 WBC 4.3 L (4.8-10.8) X10*3/uL RBC 4.54 L (4.60-5.80) X10*6/uL Hgb 13.4 L (14.0-18.0) g/dl Hct 38.7 L (42.0-52.0) % MCV 85.2 (80.0-98.0) fL MCH 29.5 (27.0-33.0) pg MCHC 34.6 (31.0-36.0) g/dl RDW 12.5 (11.0-16.0) % Plt Count 205 (160-400) X10*3/uL MPV 9.6 (9.4-12.4) fL Immature Gran % (Auto) 0.2 (0.0-0.4) % Neut % (Auto) 46.9 (45-73) % Lymph % (Auto) 41.6 H (20-40) % [place] % (Auto) 8.3 (2-11) % Eos % (Auto) 2.3 (0-4) % Baso % (Auto) 0.7 (0-2) % Lymph # (Auto) 1.8 (1.2-4.9) X10*3/uL [place] # (Auto) 0.4 (0.1-1.2) X10*3/uL Eos # (Auto) 0.1 (0.0-0.4) X10*3/uL Baso # (Auto) 0.0 (0.0-0.2) X10*3/uL Abs Immat Gran (auto) 0.01 (0.00-0.03) X10*3/uL Absolute Neuts (auto) 2.0 (2.0-8.3) x10*3/uL Absolute Nucleated RBC 0.000 (0.0-0.012) X10*3/uL Nucleated RBC % (auto) 0.0 (0.0-0.2) /100WBC Sodium (135-145) mmol/L Potassium (3.3-5.1) mmol/L Chloride (96-108) mmol/L Carbon Dioxide (22-29) mmol/L Anion Gap (12-20) BUN (9-16) mg/dL Creatinine (0.5-1.4) mg/dL Estim Creat Clear Calc Estimated GFR Random Glucose (60-115) mg/dL Lactic Acid 1.8 (0.5-2.0) mmol/L Calcium (8.4-10.2) mg/dL Magnesium (1.6-2.6) mg/dL Total Bilirubin (0.0-1.0) mg/dL Direct Bilirubin (0.0-0.5) mg/dL AST (5-37) U/L ALT (0-40) U/L Alkaline Phosphatase (39-117) U/L Troponin I High Sens 36.6 H (<3.5-35.0) ng/L Total Protein (6.5-8.0) g/dL Albumin (3.5-5.0) g/dL Lipase (8-78) U/L COVID-19 (DESIRE) (Negative) COVID-19 Clin Com 06/24/22 06/24/22 Range/Units 19:49 19:50 WBC (4.8-10.8) X10*3/uL RBC (4.60-5.80) X10*6/uL Hgb (14.0-18.0) g/dl Hct (42.0-52.0) % MCV (80.0-98.0) fL MCH (27.0-33.0) pg MCHC (31.0-36.0) g/dl RDW (11.0-16.0) % Plt Count (160-400) X10*3/uL MPV (9.4-12.4) fL Immature Gran % (Auto) (0.0-0.4) % Neut % (Auto) (45-73) % Lymph % (Auto) (20-40) % [place] % (Auto) (2-11) % Eos % (Auto) (0-4) % Baso % (Auto) (0-2) % Lymph # (Auto) (1.2-4.9) X10*3/uL [place] # (Auto) (0.1-1.2) X10*3/uL Eos # (Auto) (0.0-0.4) X10*3/uL Baso # (Auto) (0.0-0.2) X10*3/uL Abs Immat Gran (auto) (0.00-0.03) X10*3/uL Absolute Neuts (auto) (2.0-8.3) x10*3/uL Absolute Nucleated RBC (0.0-0.012) X10*3/uL Nucleated RBC % (auto) (0.0-0.2) /100WBC Sodium 140 (135-145) mmol/L Potassium 3.5 (3.3-5.1) mmol/L Chloride 107 (96-108) mmol/L Carbon Dioxide 18 L (22-29) mmol/L Anion Gap 19 (12-20) BUN 13 (9-16) mg/dL Creatinine 0.80 (0.5-1.4) mg/dL Estim Creat Clear Calc 129.8 Estimated GFR > 60 Random Glucose 126 H (60-115) mg/dL Lactic Acid (0.5-2.0) mmol/L Calcium 8.3 L D (8.4-10.2) mg/dL Magnesium 1.5 L (1.6-2.6) mg/dL Total Bilirubin 0.8 (0.0-1.0) mg/dL Direct Bilirubin 0.3 (0.0-0.5) mg/dL AST 22 (5-37) U/L ALT 28 (0-40) U/L Alkaline Phosphatase 55 (39-117) U/L Troponin I High Sens (<3.5-35.0) ng/L Total Protein 6.3 L (6.5-8.0) g/dL Albumin 3.5 (3.5-5.0) g/dL Lipase 26 (8-78) U/L COVID-19 (DESIRE) Negative (Negative) COVID-19 Clin Com See Note Imaging Data CT scan - abdomen: Radiologist's impression: FINDINGS: LUNG BASES: Linear scarring within the left lung base.? LIVER, GALLBLADDER, AND BILIARY TREE: The liver is normal in size, shape, and attenuation. No focal hepatic lesion or biliary ductal dilatation is present. The gallbladder is unremarkable with no evidence of radiopaque gallstones, gallbladder wall thickening, or obvious pericholecystic inflammatory changes.? PANCREAS: Atrophic.? SPLEEN: Unremarkable.? ADRENAL GLANDS: Unremarkable.? KIDNEYS AND URETERS: The kidneys are normal in size and attenuation. Anterior right midpole renal parenchymal scarring and calcification, unchanged. No hydronephrosis, hydroureter, or calculi seen. No perinephric stranding. ? BLADDER: Unremarkable.? GASTROINTESTINAL TRACT: Sigmoid diverticulosis without evidence of acute diverticulitis. No bowel wall thickening or inflammatory change. No small or large bowel obstruction. Appendix not identified, however, no lower quadrant inflammatory change. PERITONEAL CAVITY: No intra-abdominal free air or free fluid. No intra-abdominal mass or organized fluid collection/abscess formation.? ABDOMINAL WALL: No significant hernia is appreciated.? LYMPH NODES: No significant lymphadenopathy. VASCULAR: No abdominal aortic dilatation. Vascular stent grafts within the common iliac veins. Scattered atherosclerotic calcifications. PELVIC VISCERA: The prostate and seminal vesicles are unremarkable.? OSSEOUS STRUCTURES: Unremarkable.? CT/CT abdomen pelvis wo IV con IMPRESSION: 1. Sigmoid diverticulosis without evidence of acute diverticulitis. No small or large bowel obstruction. ? 2. No intra-abdominal mass, lymphadenopathy, or ascites. ? 3. No renal or ureteral stone. No hydronephrosis or hydroureter.? ? Fleischner guidelines were followed. Discharge Plan Discharge Clinical Impression: Nausea vomiting and diarrhea Patient Disposition: Home, Self-Care Instructions: Acute Nausea and Vomiting (ED), Acute Diarrhea (ED) Additional Instructions: Please follow-up with your primary care physician tomorrow. If you have any worsening or new symptoms, please return to the emergency room or call 911 Prescriptions: New prochlorperazine maleate [Compazine] 5 mg tablet 5 mg PO TID PRN (Reason: nausea and vomiting) Qty: 14 0RF loperamide 2 mg capsule 2 mg PO Q4H PRN (Reason: loose stool) Qty: 14 0RF Rx Instructions: administer after each loose stool until symptoms controlled; do not exceed 8 mg per 24 hrs No Action (DME) FreeStyle Hema 2 Sensor Kit See Rx Instructions .MEDSUPPLY Qty: 1 0RF Rx Instructions: Every 14 days insulin lispro [Humalog KwikPen Insulin] 100 unit/mL insulin pen See Rx Instructions subcut QIDACHS Qty: 45 6RF Rx Instructions: subcut 4 times a day before meal/bed; 5 units with coffee, 14 units with meals subcut 3 times a day; atorvastatin 20 mg tablet 20 mg PO DAILY Qty: 90 1RF (DME) FreeStyle Hema 2 Sensor Kit See Rx Instructions .ROUTE .MEDSUPPLY Qty: 2 11RF Rx Instructions: As directed every 2 weeks Ozempic 1 mg/dose (4 mg/3 mL) pen injector 1 mg subcut QWEEK 90 Days Qty: 9 2RF amlodipine 2.5 mg tablet 2.5 mg PO DAILY 90 Days Qty: 90 1RF citalopram 40 mg tablet 40 mg PO DAILY clopidogrel 75 mg tablet 75 mg PO DAILY Hold Instructions: Resume on 02/23/21. pregabalin 200 mg capsule 200 mg PO BID (DME) pen needle, diabetic [BD Deysi 2nd Gen Pen Needle] 32 gauge x 5/32 needle See Rx Instructions .MEDSUPPLY Qty: 400 4RF Rx Instructions: 5 times a day (DME) FreeStyle Precision Nabil Strips Strip See Rx Instructions .MEDSUPPLY Qty: 25 6RF Rx Instructions: once a day for calibration Adult Probiotic 3 billion cell capsule 3,000 mmu cells PO DAILY Qty: 90 4RF Rx Instructions: administer with a meal cholecalciferol (vitamin D3) 50 mcg (2,000 unit) capsule 50 mcg PO DAILY Qty: 90 3RF Toublanche SoloStar U-300 Insulin 300 unit/mL (1.5 mL) insulin pen 50 unit subcut DAILY 90 Days Qty: 20 2RF
[2022-06-24] MEDS: 0.9 % Sodium Chloride 1,000 ML 999 ML IVCONT (19:27)
[2022-06-24 19:56] LABS: MANUAL DIFF FLAG NO
[2022-06-24 19:58] LABS: Basophils Percent Auto 0.7 % (0-2); Eosinophils Absolute Auto 0.1 X10*3/uL (0.0-0.4); Eosinophils Percent Auto 2.3 % (0-4); Hematocrit 38.7 % (42.0-52.0); Hemoglobin 13.4 g/dl (14.0-18.0); Imm Gran Abs Auto 0.01 X10*3/uL (0.00-0.03); Imm Gran Pct Auto 0.2 % (0.0-0.4); Lymphocytes Absolute Auto 1.8 X10*3/uL (1.2-4.9); Lymphocytes Percent Auto 41.6 % (20-40); Mean Corpuscular HGB Conc 34.6 g/dl (31.0-36.0); Mean Corpuscular Hemoglobin 29.5 pg (27.0-33.0); Mean Corpuscular Volume 85.2 fL (80.0-98.0); Mean Platelet Volume 9.6 fL (9.4-12.4); Monocytes Absolute Auto 0.4 X10*3/uL (0.1-1.2); Monocytes Percent Auto 8.3 % (2-11); Neutrophils Percent Auto 46.9 % (45-73); Platelet Count 205 X10*3/uL (160-400); Red Blood Count 4.54 X10*6/uL (4.60-5.80); Red Cell Distribution Width 12.5 % (11.0-16.0); White Blood Count 4.3 X10*3/uL (4.8-10.8)
[2022-06-24 20:00] VITALS: BP 176/96; PULSE 59; RESP 18; TEMP 36.7; O2SAT 98
--- OUTSIDE RECORDS SUMMARY | 2022-06-24 20:03 | XMS_ITS | Continuity of Care Document ---
:1960 Author Organization [facility] Address [address] [address]- Care Team Providers Name Role Phone Lázaro Dubois MD Primary Care Physician Encounter [facility] R [id number] Date(s): 12/06/19 - 12/16/19 [facility] [address] [address]- [place] [facility] Attending Physician: Damaris Zelaya Admitting Physician: Damaris Zelaya Referring Physician: AdmtrDamaris Allergies, Adverse Reactions, Alerts Substance Reaction Severity Status Demerol HCl Violent behavior Active Immunizations Given and Recorded Vaccine Date Status Refusal Reason influenza virus vaccine, inactivated 06/16/18 Given Medications acetaminophen 325 mg oral tablet 650 mg, By Mouth, Every 4 hours, Refills 0, Maintenance, 06/20/18 11:31:54 EDT Start Date: 06/20/18 Status: OrderedAmlodipine = 2.5 mg, By Mouth, Daily, 0 Refills, Maintenance, 04/22/17 12:34:04 EDT Start Date: 04/22/17 Status: Orderedaspirin 81 mg oral tablet 1 tablet = 81 mg, By Mouth, Daily, 0 Refills, Maintenance, 04/24/18 14:47:18 EDT Start Date: 04/24/18 Status: Orderedatorvastatin 20 mg oral tablet 1 tablet = 20 mg, By Mouth, Daily, 0 Refills, Maintenance Start Date: 04/24/18 Status: OrderedHumalog Inj Subcutaneous Infusion, 3 times a day before meals, 0 Refills, Maintenance, 04/22/17 12:33:50 EDT Start Date: 04/22/17 Status: OrderedLyrica 100 mg oral capsule 1 capsule = 100 mg, By Mouth, 2 times a day, # 60 capsule, 1 Refills, Maintenance, 07/10/18 9:04:52 EDT, Capsule Start Date: 07/10/18 Status: OrderedLyrica 50 mg oral capsule 2 capsules, By Mouth, Daily, 0 Refills, Maintenance, 06/05/18 14:39:19 EDT Start Date: 06/05/18 Status: OrderedmetFORMIN 1000 mg oral tablet 1 tablet = 1,000 mg, By Mouth, Daily, # 180 tablet, 0 Refills, Maintenance, 04/24/18 14:45:24 EDT, Tablet Start Date: 04/24/18 Status: OrderedOzempic (1 mg dose) 2 mg/1.5 mL subcutaneous solution DIRECTED ONCE A WEEK SUBCUTANEOUS 30 DAYS Start Date: 10/10/19 Status: OrderedPlavix 75 mg oral tablet 75 mg, 1, tablet, By Mouth, Daily, Refills 0, Maintenance, 04/24/18 14:47:08 EDT Start Date: 04/24/18 Status: Orderedsimethicone 80 mg oral tablet, chewable 80 mg, Chew, 3 times a day, PRN, Refills 0, Maintenance, Gas, 06/20/18 11:33:04 EDT Start Date: 06/20/18 Status: OrderedToujeo SoloStar = 40 units, Subcutaneous Infusion, Daily, 0 Refills, Maintenance, 04/24/18 14:51:05 EDT Start Date: 04/24/18 Status: Ordered Problem List Condition Effective Dates Status Health Status Informant Obesity (BMI 35 as of Active 06/05/2018)(Confirmed) left frontal CVA (cerebral vascular 11/2017 Active accident), no residual(Confirmed) Claudication(Confirmed) Active DM (diabetes mellitus), Active insulin(Confirmed) Headache(Confirmed) Active Hearing loss(Confirmed) Active HLD (hyperlipidemia)(Confirmed) Active HTN (hypertension)(Confirmed) Active Left Inguinal hernia(Confirmed) Active CLARA (acute kidney injury)(Confirmed) Active OA (osteoarthritis)(Confirmed) Active Peripheral arterial occlusive Active disease(Confirmed) PVD (peripheral vascular Active disease)(Confirmed) Smoker(Confirmed) Active Social History Social History Type Response Smoking Status Former smoker, quit more archie n 30 days ago entered on: 11/22/18 Sex
--- OUTSIDE RECORDS SUMMARY | 2022-06-24 20:03 | XMS_ITS | Continuity of Care Document ---
:1960 Author Organization [facility] Address [address] [place] [address]- Care Team Providers Name Role Phone Silvino SNOW, Lázaro Gr [id number]): [facility] - 12/09/19 [facility] [address] [place] [address]- [facility] Attending Physician: Ingrid Baker MD Admitting Physician: Ingrid Baker MD Referring Physician: Ingrid Baker MD Allergies, Adverse Reactions, Alerts Substance Reaction Severity [...]
--- OUTSIDE RECORDS SUMMARY | 2022-06-24 20:03 | XMS_ITS | Continuity of Care Document ---
:1960 Author Organization [facility] Address [address] [place] [address]- Care Team Providers Name Role Phone Lázaro Dubois MD Primary Care Physician Encounter [facility] Date(s): 05/14/20 - 06/13/20 [facility] [address] [place] [address] [facility] Attending Physician: Damaris Zelaya Admitting Physician: Damaris [...] 12:33:50 EDT Start Date: 04/22/17 Status: OrderedLyrica 50 mg oral capsule 2 [...]
--- OUTSIDE RECORDS SUMMARY | 2022-06-24 20:03 | XMS_ITS | Continuity of Care Document ---
:1960 Author Organization [facility] Address [address] [place] [address]- Care Team Providers Name Role Phone Lázaro Dubois MD Primary Care Physician En[place] [facility] Date(s): 11/09/19 - 11/19/19 [facility] [address] [place] [address]- [facility] Attending Physician: Damaris Zelaya Admitting Physician: Damaris [...]
--- OUTSIDE RECORDS SUMMARY | 2022-06-24 20:03 | XMS_ITS | Continuity of Care Document ---
:1960 Author Organization [facility] Address [address] [place] [address]- Care Team Providers Name Role Phone Lázaro Dubois MD Primary Care Physician [facility] [facility] [id number] Date(s): 11/19/19 - 11/29/19 [facility] [address] [place] [address]- [facility] Attending Physician: Damaris Zelaya [...]
--- OUTSIDE RECORDS SUMMARY | 2022-06-24 20:03 | XMS_ITS | Continuity of Care Document ---
:[address] [facility] Address [address] [address]- Care Team Providers Name Role Phone Lázaro Dubois MD [id number]11/[facility] - 12/23/19 [place] [address] Attending Physician: Ingrid Baker MD Admitting Physician: Ingrid Baker MD Referring Physician: Lázaro Dubois MD Allergies, Adverse Reactions, Alerts Substance Reaction [...]
--- OUTSIDE RECORDS SUMMARY | 2022-06-24 20:03 | XMS_ITS | Continuity of Care Document ---
:1960 Author Organization [facility] Address [address] [place] [address]- Care Team Providers Name Role Phone Silvino SNOW, Lázaro Gr Primary Care Physician [id number] Date(s): 02/11/20 - 02/18/20 [facility] [address] [place] [address]- [facility] Attending Physician: Samuel SNOW, Ingrid Magana Admitting Physician: Ingrid Baker MD Allergies, Adverse Reactions, [...] PVD (peripheral vascular Active disease)(Confirmed) Smoker(Confirmed) Active Vital Signs Most recent to oldest [Reference Range]: 1 Height 174 cm (02/11/20 9:34 AM) Weight 119.00 kg (02/11/20 9:34 AM) Oxygen Saturation [94-100 %] 94 % (02/11/20 9:34 AM) Pulse Rate [55-90 bpm] 71 bpm (02/11/20 9:34 AM) Body Mass Index [18.5-24.99] 39.31 *>HHI* (02/11/20 9:34 AM) Blood Pressure [90-138/55-84 mm Hg] 128/80 mm Hg (02/11/20 9:34 AM) Blood pressure sites Arm, right (02/11/20 9:34 AM) Weight Obtained Via Patient/family stated (02/11/20 9:34 AM) Social History Social History Type Response Smoking Status Former smoker, quit more archie n 30 days ago entered on: 11/22/18 Sex
--- OUTSIDE RECORDS SUMMARY | 2022-06-24 20:03 | XMS_ITS | Continuity of Care Document ---
:1960 Author Organization [facility] Address [address] [place] [address]- Care Team Providers Name Role Phone Silvino SNOW, Lázaro Gr [id number] Date(s): 10/10/19 - 12/09/19 [facility] [address] [place] [id number]- [facility] Attending Physician: Ingrid Baker MD Admitting [...]
--- OUTSIDE RECORDS SUMMARY | 2022-06-24 20:03 | XMS_ITS ---
:1960 Author Name Lázaro Dubois Care Team Providers Name Role Phone SilvinoTrumanw Unavailable Unavailable PROBLEMS Type Condition ICD9-CM [id number] Onset Condition SNOMED Cod e Code Code Dates Status Problem Osteoarthritis of M19.072 Active 20 6425896 left ankle and foot Problem Atherosclerosis of I70.223 Active [place] artery of both legs with rest pain Problem Osteoarthritis of M19.071 Active 20 1888793 right ankle and foot Problem Non-pressure ulcer L97.912 Active of right lower extremity with fat layer exposed Problem Type 2 diabetes E11.621 Active 1521 [id number] mellitus with foot ulcer Problem Type 1 diabetes E10.42 Active 7137 66117 mellitus with polyneuropathy Problem Claudication of I73.9 Active 4000 67688 right lower extremity Problem Unspecified I70.203 Active [id number] atherosclerosis of [place] arteries of extremities, bilateral legs Problem Type 1 diabetes E10.42 Active mellitus with diabetic polyneuropathy ALLERGIES Substance Reaction Event Type Date Status Demerol get violent Drug Allergy Feb, Active ENCOUNTERS Encounter Location Date Diagnosis [facility] [address] Mar, [place] [address] [facility] [address] Feb, [place] [address] [facility] [address] Feb, [place] [address] [facility] [address] Feb, [place] [address] [facility] [address] Feb, [place] [address] [facility] [address] Feb, [place] [address] [facility] Feb, [place] lulitis of right toe [place] A[place] L03.031 ; Unspe cified [address] atherosclerosis of [place] arteries of extr emities, bilateral legs I 70.203 ; Type 1 diabetes mellitus with polyneuropa thy E10.42 and Non-pressure ulcer of right lower extr emity with fat layer expose d L97.912 [facility] [address] [facility] [address] Feb, [place] [address] [facility] [address] Feb, [place] [address] Feb, Uns pecified [place] [facility] [place] atherosclerosis of [place] [address] arteries of extr emities, bilateral legs I 70.203 ; Type 1 diabetes mellitus with polyneuropa thy E10.42 ; Non-pressure u lcer of right lower extr emity with fat layer expose d L97.912 and Type 2 diabe jillian mellitus with fo ot ulcer E11.621 [facility] January, [place], [place] [address] January, [place] lulitis of right toe [place] ANA L03.031 ; Unspe cified [address] atherosclerosis of [place] arteries of extr emities, bilateral legs I 70.203 ; Type 1 diabetes mellitus with polyneuropa thy E10.42 and Non-pressure ulcer of right lower extr emity with fat layer expose d L97.[address] [facility] January, Uns pecified [place] [facility] [place] atherosclerosis of [place] [address] arteries of extr emities, bilateral legs I 70.203 ; Cellulitis of ri ght toe L03.031 ; Type 1 diabetes mellitus with di abetic polyneuropathy E 10.42 and Non-pressure ulc er of right lower extr emity with fat layer expose d L97.912 [facility] [address] January, [place] [address] May, [place] [address] May, Uns pecified [place] atherosclerosis of [place] [address] arteries of extr emities, bilateral legs I 70.203 ; Other hammer toe (s) (acquired), righ t foot M20.41 ; Tinea u nguium B35.1 ; Other uriostegui mmer toe(s) (acquired ), left foot M20.42 and Type 1 diabetes mellitu s with diabetic polyneu ropathy E10.42 [facility] Apr, [place] [address] Mar, [place] erosclerosis of [place] [facility] [place] artery of both legs with [address] rest pain I70.22 3 ; Type 1 diabetes mellitu s with polyneuropathy E 10.42 and Claudication of right lower extremity I73.9 [facility] [address] [facility] [address] Mar, 2018 [place] [address] [facility] Sep, [place] [address] Aug, [place] [address] Aug, [place] [address] Aug, Pes planus of left foot [place] M21.42 ; [place] [address] right foot M21.4 1 ; Atherosclerosis of [place] artery of both l egs with rest pain I70.22 3 ; Type 1 diabetes mellitu s with polyneuropathy E 10.42 ; Plantar fascial fibromatosis M72 .2 ; Calcaneal spur o f left foot M77.32 ; Ca lcaneal spur of right fo ot M77.31 ; Foreign body i n left foot, initial en counter S90.852A ; Osteo arthritis of left ankle an d foot M19.072 and Oste oarthritis of right ankle a nd foot M19.071 IMMUNIZATIONS No Known Immunizations SOCIAL HISTORY Qualifiers Date Former Smoker REASON FOR REFERRAL FUNCTIONAL STATUS PLAN OF CARE Activity Details Pending Test X ray : Foot, right 3V Future/Pending Procedure [id number] NAIL, 6 OR MOR E Future/Pending Procedure [id number] SKIN LESIONS, 2 T O 4 VITAL SIGNS Height 5 ft 11 in in 2022-03-16 Weight 260 lbs 2022-03-16 BMI 36.26 kg/m2 2022-03-16 Heart Rate 77 /min 2018-05-31 Blood pressure systolic 123 mm Hg 2018-05-31 Blood pressure diastolic 81 mm Hg 2018-05-31 MEDICATIONS Medication Instructions Dosage Frequency Start End Duration Statu s Date Date Trulicity Not-Takin g Omeprazole 20 Orally Once a 1 capsule 24h 30 day(s) Active MG day 30 minutes before morning meal Keflex 500 MG Orally every 12 1 capsule 12h 09 February, 10 days Active hrs 2021 Extra Depth as directed Aug, Active Orthopedic 2017 Shoes (1 Pair) with Customized Heat Molded Multidensity Innersoles (3 Pair) amLODIPine Orally Once a 1 tablet 24h Active Besylate 10 MG day Ozempic Active Toujeo SoloStar Active Augmentin Orally every 8 1 tablet 8h 27 Feb, 7 day(s) Activ e 500-125 MG hrs 2021 Extra Depth as directed May, Active Orthopedic 2018 Shoes (1 Pair) with Customized Heat Molded Multidensity Innersoles (3 Pair) metFORMIN HCl Orally Twice a 1 tablet 12h No t-Takin 1000 MG day with meals g HumaLOG Active Bactrim DS Orally Twice a 1 tablet 12h 27 Bryson, 7 days Activ e 800-160 MG day 2021 Lyrica Active Keflex 500 MG Orally every 12 1 capsule 12h 21 Bryson, 7 days Active hrs 2021 Lantus Not-Takin g Metoprolol Orally Once a 1 tablet 24h Not-Ta kin Succinate ER 50 day g MG Gabapentin 600 Orally Once a 1 tablet 24h No t-Takin MG day g NovoLOG 100 as directed Active UNIT/ML Atorvastatin Active Calcium PROCEDURES Procedure Date Ordered Result Body Site TRIM SKIN LESIONS, 2 TO 4 May 31, 2018 X-RAY EXAM OF LEFT FOOT 3V Sep 13, 2017 X-RAY EXAM OF RIGHT FOOT 3V February 09, 2022 DEBRIDE SKIN/TISSUE February 09, 2022 X-RAY EXAM OF RIGHT FOOT 3V Sep 13, 2017 DEBRIDE NAIL, 6 OR MORE May 31, 2018 DEBRIDE SKIN/TISSUE March 16, 2022 DEBRIDE SKIN/TISSUE March 03, 2022 DEBRIDE SKIN/TISSUE February 17, 2022 RESULTS Name Result Date Reference Range HEMOGLOBIN A1C (GLYCOHEMOGLOBIN) 2018-03-13 TOTAL HEMOGLOBIN (HGBA1C) 7.5 HEMOGLOBIN A1C (HH) HEMOGLOBIN A1C % (HH) ESTIMATED AVG GLUCOSE X ray : Foot, left 3V X ray : Foot, right 3V REASON FOR VISIT Insurance Providers Formerly [facility] Health Member Patient Patient Patient Patient Patient Subscriber Subscriber Subscriber Group Insurance Plan Plan Plan Plan ID Relationship Address Phone Name Date of ID Name Date of No Type Insurance Insurance Insurance Coverage to Subscriber Address Phone Name Dates [facility] [phone] Ricardona self [place] [id number] MBASP [id number] MBASP [id number] [place] [address] [facility] [address] [facility] self [place] 1960 0331 [id number] All Others [id number] All Others [place] [address] [facility] [address] MEDICAL (GENERAL) HISTORY Type Description Date Medical History High blood pressure Medical History Diabetic Medical History Measles Medical History Mumps Medical History Chicken pox Medical History Anxiety Medical History Scarlet fever Medical History Stroke Medical History Poor circulation Surgical History appendectomy 1987 Surgical History stent in right leg 04/2018 Hospitalization History No know Hospitalization history
--- OUTSIDE RECORDS SUMMARY | 2022-06-24 20:03 | XMS_ITS | Continuity of Care Document ---
:1960 Author Organization [facility] Address [address] [place] [address]- Care Team Providers Name Role Phone Lázaro Dubois MD Primary Care Physician [place] [facility] [place](s): 05/28/20 - 06/27/20 [facility] [address] [place] [address] [facility] Attending Physician: Damaris Zelaya Admitting Physician: Damaris [...]
--- OUTSIDE RECORDS SUMMARY | 2022-06-24 20:03 | XMS_ITS | Continuity of Care Document ---
:1960 Author Organization [facility] Address [address] [place] [address]- Care Team Providers Name Role Phone Silvino SNOW, Lázaro Gr Primary Care Physician [place] [facility] [place] 06/13/20 [facility] [address] [place] [address] [facility] Attending Physician: Ingrid Baker MD Admitting Physician: [...]
--- OUTSIDE RECORDS SUMMARY | 2022-06-24 20:03 | XMS_ITS | Continuity of Care Document ---
:1960 Author Organization [facility] [place] [address] [address]- Care Team Providers Name Role Phone Lázaro Dubois MD Primary Care Phys[id number]/02[facility] - 01/05/20 [place] [address] [facility] Attending Physician: Ingrid Baker MD Admitting Physician: [...]
--- OUTSIDE RECORDS SUMMARY | 2022-06-24 20:03 | XMS_ITS | Continuity of Care Document ---
:1960 Author Organization [facility] Address [address] [place] [address]- Care Team Providers Name Role Phone Silvino SNOW, Lázaro Gr Primary Care Physician [id number] Date(s): 02/28/20 - 06/27/20 [facility] [address] [place] [address] [facility] Attending Physician: Ingrid Baker MD Admitting Physician: [...]
[2022-06-24 20:06] LABS: Lactic Acid 1.8 mmol/L (0.5-2.0)
[2022-06-24] MEDS: Prochlorperazine Edisylate 10 MG/2 ML VIAL IVPUSH (20:07)
[2022-06-24 20:13] LABS: COVID-19 Test Negative (Negative)
[2022-06-24 20:16] LABS: Alanine Aminotransferase 28 U/L (0-40); Albumin Level 3.5 g/dL (3.5-5.0); Alkaline Phosphatase 55 U/L (39-117); Anion Gap 19 (12-20); Aspartate Amino Transferase 22 U/L (5-37); Bilirubin Direct 0.3 mg/dL (0.0-0.5); Bilirubin Total 0.8 mg/dL (0.0-1.0); Blood Urea Nitrogen 13 mg/dL (9-16); Calcium 8.3 mg/dL (8.4-10.2); Carbon Dioxide 18 mmol/L (22-29); Chloride 107 mmol/L (96-108); Creatinine Clr Calc Pharmacy 129.8; Estimated Glomerular Filt Rate > 60; Glucose Random 126 mg/dL (60-115); Lipase 26 U/L (8-78); Magnesium 1.5 mg/dL (1.6-2.6); Potassium 3.5 mmol/L (3.3-5.1); Sodium 140 mmol/L (135-145); Total Protein 6.3 g/dL (6.5-8.0)
[2022-06-24 20:19] LABS: Troponin-I High Sensitivity 36.6 ng/L (<3.5-35.0)
[2022-06-24] MEDS: Magnesium Oxide 400 MG TABLET 800 MG PO (21:15)
[2022-06-24] MEDS: Loperamide HCl 2 MG CAPSULE 4 MG PO (21:15)
== END 2022-06-24 21:37 | disposition home or self-care (01) ==
PROVIDERS: Emergency Provider Emergency Medicine; PCP Family Medicine
DX: R11.2 Nausea with vomiting, unspecified (principal); R19.7 Diarrhea, unspecified; Z20.822 Contact with and (suspected) exposure to COVID-19; E11.9 Type 2 diabetes mellitus without complications; I10 Essential (primary) hypertension; E78.5 Hyperlipidemia, unspecified; E66.9 Obesity, unspecified; Z68.36 Body mass index [BMI] 36.0-36.9, adult; Z87.891 Personal history of nicotine dependence; Z79.4 Long term (current) use of insulin; Z79.02 Long term (current) use of antithrombotics/antiplatelets; Z79.899 Other long term (current) drug therapy
CPT/HCPCS: 36415; 74176; 80048; 80076; 83605; 83690; 83735; 84484; 85025; 87040; 87635; 93005; 96361; 96374; 99284

== ENCOUNTER 2022-07-01 11:18 | Outpatient (REF) | payer OTHER, SELFPAY | END 2022-07-01 11:19 | disposition home or self-care (01) | LOC: HO.MRI 11:18 | PROVIDERS: Visit Provider Physician Assistant | DX: E11.621 Type 2 diabetes mellitus with foot ulcer (principal); L97.512 Non-pressure chronic ulcer of other part of right foot with fat layer exposed | CPT/HCPCS: 73720; A9585 ==

== ENCOUNTER 2022-07-21 05:04 | Inpatient (IN) | payer OTHER, SELFPAY ==
--- NOTE | ~2022-07-21 | MR_ITS ---
EXAMINATION: MR FOOT WITHOUT AND WITH CONTRAST, LEFT CLINICAL INFORMATION: Diabetic foot ulcer. COMPARISON: X-rays of the left foot 07/21/2022. TECHNIQUE: MRI of the left foot is performed without and with contrast. Contrast dose: 10 mL of Gadavist contrast given intravenously. [id number] includes the midfoot and forefoot. FINDINGS: Subcutaneous Soft Tissues: Scattered feathery-appearing fluid signal in the dorsal subcutaneous soft tissues without enhancement compatible with edema. There is feathery-appearing decreased T1 increased T2 with concomitant enhancement along the plantar aspect of the great toe at the middle one-third portion compatible with localized cellulitis. There is similar-appearing signal abnormality along the plantar medial aspect of the 1st metatarsophalangeal joint which could reflect localized cellulitis or adventitial bursitis. There is enhancement of the subcutaneous soft tissues along the plantar aspect of the distal great toe beginning at the IP joint compatible with cellulitis. Muscles/Tendons: There is fatty infiltration and increased T2 signal along with partial enhancement of the muscles of the foot. This likely reflects denervation myositis. Bones/Joints: There are multiple subchondral cysts in the navicular likely reflecting arthrosis of the talonavicular joint and naviculocuneiform joints. Bone and joints otherwise unremarkable. MR/MR foot LT wo/w con IMPRESSION: 1. No evidence for osteomyelitis. 2. Abnormality along the plantar aspect of the great toe compatible with cellulitis. 3. Similar-appearing abnormality along the plantar medial aspect of the 1st metatarsophalangeal joint which could reflect localized cellulitis or adventitial bursitis. 4. Mild edema in the dorsal subcutaneous soft tissues. 5. 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 6. 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
--- NOTE | ~2022-07-21 | XR_ITS ---
EXAMINATION: XR FOOT, LEFT CLINICAL INFORMATION: Great toe DFU. COMPARISON: None TECHNIQUE: AP, lateral, and oblique views of the left foot. FINDINGS: An approximate 1 cm curvilinear radiodensity densities seen along the dorsal margin of the distal head of the second metatarsal. Bandages overlie the first digit. No acute underlying osseous abnormality seen. The tarsal bones are normally aligned. The soft tissues are otherwise unremarkable. XR/XR foot LT min 3V IMPRESSION: 1. Bandages overlying the first digit without acute underlying osseous abnormality. 2. Curvilinear radiopaque density consistent with foreign body. Correlate with patient history and physical exam.
--- NOTE | ~2022-07-21 | XR_ITS ---
EXAMINATION: XR FOOT, RIGHT CLINICAL INFORMATION: Great toe DFU. COMPARISON: 04/24/2022 right foot radiographs. TECHNIQUE: AP, lateral, and oblique views of the right foot. FINDINGS: There is no acute fracture or dislocation. The joint spaces are unremarkable. Surgical clips overlie the soft tissues between the second and third digits without abnormality. The tarsal bones are normally aligned. The soft tissues are unremarkable. XR/XR foot RT min 3V IMPRESSION: No significant acute abnormality.
--- NOTE | ~2022-07-21 | MR_ITS ---
EXAMINATION: MR FOOT WITHOUT AND WITH CONTRAST, RIGHT CLINICAL INFORMATION: Diabetic foot ulcer. COMPARISON: X-ray of the right foot 07/21/2022. TECHNIQUE: MRI of the right foot was performed without and with contrast. Contrast dose: 10 mL of Gadavist given intravenously. Zegcp-pc-funk includes the forefoot and distal midfoot. FINDINGS: Great Toe: At the level of the distal phalanx and IP joint of the great toe, there is a persistent focal area of superficial skin and subcutaneous soft tissue irregularity with abnormal signal and enhancement in the immediately surrounding subcutaneous soft tissues. This is in the same location and has a similar appearance as that noted previously. In this area, there is what appears to be a very small superficial ulceration or sinus tract measuring approximately 3 mm deep to the skin which is more clearly defined than on the prior examination. There is no localized fluid collection/abscess. The underlying bone, bone capsule and flexor tendon is intact. Additional Findings: There is mild osteoarthritis of the 1st tarsometatarsal joint manifested by small subchondral cystic change, unchanged compared to prior. Muscles/Tendons: There is fatty infiltration and atrophy of the muscles of the foot with increased T2 signal and with minimal, if any, enhancement. This likely reflects denervation myositis and is unchanged compared to prior. There is metallic artifact partially obscuring evaluation of the 2nd and 3rd toes at the level of the metatarsophalangeal joint. MR/MR foot RT wo/w con IMPRESSION: 1. Persistent abnormality of the plantar soft tissues at the level of the IP joint and distal phalanx of the great toe compatible with small ulceration with or without superficial sinus tract. Additional surrounding cellulitis. 2. No evidence for osteomyelitis. 3. No abscess. 4. Mild osteoarthritis of the 1st tarsometatarsal joint, unchanged. 5. 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
[2022-07-21 05:17] VITALS: BP 170/90; PULSE 103; RESP 18; TEMP 36.4; O2SAT 97; BMI 36.2
--- NOTE | 2022-07-21 07:37 | ED_ITS ---
HPI - General Adult General Chief complaint: Extremity Problem Stated complaint: Toe pain Time Seen by Provider: 07/21/22 07:23 Source: patient History of Present Illness HPI narrative: Patient with bilateral great toe diabetic foot ulcers, plantar surface. Patient with a long history of insulin-dependent diabetes. Over the past few months he has been dealing with 1st right sided great toe DFU. More recently left great toe DFU. He has been treated by wound care. Two weeks ago he started on cephalexin. One week ago was switched to doxycycline because the wounds were getting worse. Yesterday he saw the wound care nurse who noted that the wounds were still getting worse despite the outpatient antibiotics. He has been having now redness and pain up his left foot into the dorsum of his foot. Positive bilateral follow up drainage. Positive chills. No documented fevers. No history of hospitalization for wound infections. No other significant complaints Related Data Home Medications Medication Instructions Recorded Confirmed citalopram 40 mg tablet 40 mg PO DAILY 10/17/20 12/25/21 clopidogrel 75 mg tablet 75 mg PO DAILY 10/17/20 09/23/21 pregabalin 200 mg capsule 200 mg PO BID 01/16/21 12/25/21 Previous Rx's Medication Instructions Recorded lactobacillus combination no.8 3 3,000 mmu cells PO DAILY #90 caps 03/06/21 billion cell capsule (Adult Probiotic) FreeStyle Precision Nabil Strips #25 ea 04/16/21 (blood sugar diagnostic) pen needle, diabetic 32 gauge x #400 ea 04/16/21 (BD Deysi 2nd Gen Pen Needle) flash glucose sensor (FreeStyle #1 ea 09/24/21 Hema 2 Sensor kit) cholecalciferol (vitamin D3) 50 50 mcg PO DAILY #90 caps 12/25/21 mcg (2,000 unit) capsule insulin glargine U-300 conc 300 50 unit (0.1667 mL) subcut DAILY 12/25/21 unit/mL (1.5 mL) subcutaneous pen 90 days #20 mL (Toujeo SoloStar U-300 Insulin) insulin lispro 100 unit/mL See Rx Instructions subcut QIDACHS 02/16/22 subcutaneous pen (Humalog KwikPen #45 mL (U-100) Insulin) atorvastatin 20 mg tablet 20 mg PO DAILY #90 tabs 04/20/22 flash glucose sensor (FreeStyle #2 ea 04/29/22 Hema 2 Sensor kit) semaglutide 1 mg/dose (4 mg/3 mL) 1 mg (0.75 mL) subcut QWEEK 90 05/06/22 subcutaneous pen injector (Ozempic) days #9 mL amlodipine 2.5 mg tablet 2.5 mg PO DAILY 90 days #90 tabs 05/17/22 loperamide 2 mg capsule 2 mg PO Q4H PRN loose stool #14 06/24/22 caps prochlorperazine maleate 5 mg 5 mg PO TID PRN nausea and 06/24/22 tablet (Compazine) vomiting #14 tabs Allergies Allergy/AdvReac Type Severity Reaction Status Date / Time meperidine [From DEMEROL] Allergy Intermediate BECAME Verified 12/25/21 08:57 VIOLENT Review of Systems Constitutional: Comments: Chills without documented fever Cardiovascular: Comments: No chest pain Respiratory: Comments: No cough or shortness of breath Gastrointestinal: Comments: No nausea or vomiting or diarrhea or abdominal pain Genitourinary: Comments: No dysuria. 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 Obesity (BMI 30-39.9) Osteoarthritis Positive colorectal cancer screening using Cologuard test Pulmonary nodules PVD (peripheral vascular disease) Tubular adenoma Vitamin D deficiency Surgical History History of uvulopalatopharyngoplasty Hx of appendectomy Hx of vein stripping Family History Family History Father Diabetes mellitus HTN (hypertension) Mother Lung disease Social History Social History Household Members: Spouse and Children Alcohol intake: current Alcohol intake frequency: does not drink Patient Tobacco Use Status: Former Tobacco user Tobacco use type: Cigarette Cigarette Packs Per Day: 1 Years Smoked: 30 Advance Directives: No Physical Exam ED Vital Signs: Vital Signs - 24 hr 07/21/22 05:17 07/21/22 07:49 07/21/22 08:21 Temperature 97.6 F 98.4 F Pulse Rate 103 H 87 87 Respiratory Rate 18 12 18 Blood Pressure 170/90 H 136/79 131/81 Pulse Oximetry 97 94 95 Oxygen Delivery Method Room Air Room Air Room Air BMI result Body Mass Index 36.2 Const Other: Awake and alert. No acute distress Resp Other: Clear and equal bilaterally Cardio Other: Regular rate and rhythm without murmurs rubs or gallops GI Other: Soft nontender nondistended Skin Other: Warm pink and dry. Examination of feet reveals bilateral great toe plantar surface diabetic foot ulcers. Right great toe with minimal erythema and minimal drainage. Left great toe with some purulent drainage noted. There is erythema extending to the dorsum of the foot. Per patient this is new over the last several days despite antibiotics Neuro Other: Nonfocal neuro exam Extrem Other: As noted above with bilateral diabetic foot ulcers. No calf tenderness Course Course Course Narrative: Patient with bilateral diabetic foot ulcers failing outpatient antibiotics with worsening infection. No obvious signs of sepsis or systemic illness at this time other than chills. He is afebrile urine emergency department. Will obtain bilateral x-rays to look for obvious osteomyelitis. IV antibiotics Wound cultures and blood cultures Sed rate and CRP added on. 08:38. White count is normal. Lactic acid is 1.9. No evidence of sepsis. Will hospitalized for continued IV antibiotics secondary to failure of outpatient p.o. antibiotics. Likely require debridement and wound care as well. Medical Decision Making Lab Data Result diagrams: 07/21/22 08:09 07/21/22 08:09 Labs: Lab Results 07/21/22 07/21/22 07/21/22 Range/Units 08:09 08:09 08:09 WBC 5.0 (4.8-10.8) X10*3/uL RBC 4.38 L (4.60-5.80) X10*6/uL Hgb 13.1 L (14.0-18.0) g/dl Hct 38.5 L (42.0-52.0) % MCV 87.9 (80.0-98.0) fL MCH 29.9 (27.0-33.0) pg MCHC 34.0 (31.0-36.0) g/dl RDW 12.5 (11.0-16.0) % Plt Count 199 (160-400) X10*3/uL MPV 9.6 (9.4-12.4) fL Immature Gran % (Auto) 0.2 (0.0-0.4) % Neut % (Auto) 69.3 (45-73) % Lymph % (Auto) 17.5 L (20-40) % [place] % (Auto) 10.4 (2-11) % Eos % (Auto) 1.8 (0-4) % Baso % (Auto) 0.8 (0-2) % Lymph # (Auto) 0.9 L (1.2-4.9) X10*3/uL [place] # (Auto) 0.5 (0.1-1.2) X10*3/uL Eos # (Auto) 0.1 (0.0-0.4) X10*3/uL Baso # (Auto) 0.0 (0.0-0.2) X10*3/uL Abs Immat Gran (auto) 0.01 (0.00-0.03) X10*3/uL Absolute Neuts (auto) 3.5 (2.0-8.3) x10*3/uL Absolute Nucleated RBC 0.000 (0.0-0.012) X10*3/uL Nucleated RBC % (auto) 0.0 (0.0-0.2) /100WBC Sodium 135 (135-145) mmol/L Potassium 4.2 (3.3-5.1) mmol/L Chloride 100 (96-108) mmol/L Carbon Dioxide 24 (22-29) mmol/L Anion Gap 15 (12-20) BUN 19 H (9-16) mg/dL Creatinine 0.99 (0.5-1.4) mg/dL Estim Creat Clear Calc 104.9 Estimated GFR > 60 Random Glucose 164 H (60-115) mg/dL Lactic Acid 1.9 (0.5-2.0) mmol/L Calcium 8.9 D (8.4-10.2) mg/dL Total Bilirubin 0.3 (0.0-1.0) mg/dL AST 17 (5-37) U/L ALT 13 (0-40) U/L Alkaline Phosphatase 58 (39-117) U/L Total Protein 6.9 (6.5-8.0) g/dL Albumin 3.9 (3.5-5.0) g/dL Acetone, Qual (Negative) COVID-19 (DESIRE) (Negative) COVID-19 Clin Com 07/21/22 07/21/22 Range/Units 08:09 08:09 WBC (4.8-10.8) X10*3/uL RBC (4.60-5.80) X10*6/uL Hgb (14.0-18.0) g/dl Hct (42.0-52.0) % MCV (80.0-98.0) fL MCH (27.0-33.0) pg MCHC (31.0-36.0) g/dl RDW (11.0-16.0) % Plt Count (160-400) X10*3/uL MPV (9.4-12.4) fL Immature Gran % (Auto) (0.0-0.4) % Neut % (Auto) (45-73) % Lymph % (Auto) (20-40) % [place] % (Auto) (2-11) % Eos % (Auto) (0-4) % Baso % (Auto) (0-2) % Lymph # (Auto) (1.2-4.9) X10*3/uL [place] # (Auto) (0.1-1.2) X10*3/uL Eos # (Auto) (0.0-0.4) X10*3/uL Baso # (Auto) (0.0-0.2) X10*3/uL Abs Immat Gran (auto) (0.00-0.03) X10*3/uL Absolute Neuts (auto) (2.0-8.3) x10*3/uL Absolute Nucleated RBC (0.0-0.012) X10*3/uL Nucleated RBC % (auto) (0.0-0.2) /100WBC Sodium (135-145) mmol/L Potassium (3.3-5.1) mmol/L Chloride (96-108) mmol/L Carbon Dioxide (22-29) mmol/L Anion Gap (12-20) BUN (9-16) mg/dL Creatinine (0.5-1.4) mg/dL Estim Creat Clear Calc Estimated GFR Random Glucose (60-115) mg/dL Lactic Acid (0.5-2.0) mmol/L Calcium (8.4-10.2) mg/dL Total Bilirubin (0.0-1.0) mg/dL AST (5-37) U/L ALT (0-40) U/L Alkaline Phosphatase (39-117) U/L Total Protein (6.5-8.0) g/dL Albumin (3.5-5.0) g/dL Acetone, Qual Negative (Negative) COVID-19 (DESIRE) Positive A (Negative) COVID-19 Clin Com See Note Discharge Plan Discharge Patient Disposition: Admitted As Inpatient Prescriptions: No Action (DME) FreeStyle Hema 2 Sensor Kit See Rx Instructions .MEDSUPPLY Qty: 1 0RF Rx Instructions: Every 14 days insulin lispro [Humalog KwikPen Insulin] 100 unit/mL insulin pen See Rx Instructions subcut QIDACHS Qty: 45 6RF Rx Instructions: subcut 4 times a day before meal/bed; 5 units with coffee, 14 units with meals subcut 3 times a day; atorvastatin 20 mg tablet 20 mg PO DAILY Qty: 90 1RF (DME) FreeStyle Hema 2 Sensor Kit See Rx Instructions .ROUTE .MEDSUPPLY Qty: 2 11RF Rx Instructions: As directed every 2 weeks Ozempic 1 mg/dose (4 mg/3 mL) pen injector 1 mg subcut QWEEK 90 Days Qty: 9 2RF amlodipine 2.5 mg tablet 2.5 mg PO DAILY 90 Days Qty: 90 1RF prochlorperazine maleate [Compazine] 5 mg tablet 5 mg PO TID PRN (Reason: nausea and vomiting) Qty: 14 0RF loperamide 2 mg capsule 2 mg PO Q4H PRN (Reason: loose stool) Qty: 14 0RF Rx Instructions: administer after each loose stool until symptoms controlled; do not exceed 8 mg per 24 hrs citalopram 40 mg tablet 40 mg PO DAILY clopidogrel 75 mg tablet 75 mg PO DAILY Hold Instructions: Resume on 02/23/21. pregabalin 200 mg capsule 200 mg PO BID (DME) pen needle, diabetic [BD Deysi 2nd Gen Pen Needle] 32 gauge x 5/32 needle See Rx Instructions .MEDSUPPLY Qty: 400 4RF Rx Instructions: 5 times a day (DME) FreeStyle Precision Nabil Strips Strip See Rx Instructions .MEDSUPPLY Qty: 25 6RF Rx Instructions: once a day for calibration Adult Probiotic 3 billion cell capsule 3,000 mmu cells PO DAILY Qty: 90 4RF Rx Instructions: administer with a meal cholecalciferol (vitamin D3) 50 mcg (2,000 unit) capsule 50 mcg PO DAILY Qty: 90 3RF Toujeo SoloStar U-300 Insulin 300 unit/mL (1.5 mL) insulin pen 50 unit subcut DAILY 90 Days Qty: 20 2RF
[2022-07-21 07:49] VITALS: BP 136/79; PULSE 87; RESP 12; TEMP 36.9; O2SAT 94
[2022-07-21 08:17] LABS: Basophils Percent Auto 0.8 % (0-2); Eosinophils Absolute Auto 0.1 X10*3/uL (0.0-0.4); Eosinophils Percent Auto 1.8 % (0-4); Hematocrit 38.5 % (42.0-52.0); Hemoglobin 13.1 g/dl (14.0-18.0); Imm Gran Abs Auto 0.01 X10*3/uL (0.00-0.03); Imm Gran Pct Auto 0.2 % (0.0-0.4); Lymphocytes Absolute Auto 0.9 X10*3/uL (1.2-4.9); Lymphocytes Percent Auto 17.5 % (20-40); MANUAL DIFF FLAG NO; Mean Corpuscular Hemoglobin 29.9 pg (27.0-33.0); Mean Corpuscular Volume 87.9 fL (80.0-98.0); Mean Platelet Volume 9.6 fL (9.4-12.4); Monocytes Absolute Auto 0.5 X10*3/uL (0.1-1.2); Monocytes Percent Auto 10.4 % (2-11); Neutrophils Absolute Auto 3.5 x10*3/uL (2.0-8.3); Neutrophils Percent Auto 69.3 % (45-73); Platelet Count 199 X10*3/uL (160-400); Red Blood Count 4.38 X10*6/uL (4.60-5.80); Red Cell Distribution Width 12.5 % (11.0-16.0)
[2022-07-21 08:21] VITALS: BP 131/81; PULSE 87; RESP 18; O2SAT 95
[2022-07-21 08:24] VITALS: BMI 36.2
[2022-07-21 08:25] LABS: COVID-19 Test Positive (Negative); IDNOW Serial# 55D5AD1C
[2022-07-21 08:30] LABS: Lactic Acid 1.9 mmol/L (0.5-2.0)
[2022-07-21 08:34] LABS: Acetone, serum QL Negative (Negative); Alanine Aminotransferase 13 U/L (0-40); Albumin Level 3.9 g/dL (3.5-5.0); Alkaline Phosphatase 58 U/L (39-117); Anion Gap 15 (12-20); Aspartate Amino Transferase 17 U/L (5-37); Bilirubin Total 0.3 mg/dL (0.0-1.0); Blood Urea Nitrogen 19 mg/dL (9-16); Calcium 8.9 mg/dL (8.4-10.2); Carbon Dioxide 24 mmol/L (22-29); Chloride 100 mmol/L (96-108); Creatinine Clr Calc Pharmacy 104.9; Estimated Glomerular Filt Rate > 60; Glucose Random 164 mg/dL (60-115); Potassium 4.2 mmol/L (3.3-5.1); Sodium 135 mmol/L (135-145); Total Protein 6.9 g/dL (6.5-8.0)
[2022-07-21] MEDS: Piperacillin Sodium/Tazobactam 3.375 GM in 0.9 % Sodium Chloride 50 ML IV ×3 (08:51→22:33)
[2022-07-21 09:07] LABS: C Reactive Protein 2.11 mg/dL (< or = 0.50)
[2022-07-21 09:46] LABS: Erythrocyte Sedimentation Rate 44 MM/HR (0-15)
--- NOTE | 2022-07-21 09:53 | P.HPHOSP_ITS ---
History of Present Illness Date of Service: 07/21/22 Chief Complaint: Diabetic foot infection failed outpatient therapies 61-year-old male with longstanding history of insulin dependent diabetes presents with bilateral diabetic foot ulcers that have worsened despite therapy with Keflex and then with doxycycline. He states he has been followed at the wound clinic; was seen 07/20/2022 and at their advice presented to ER secondary to failing outpatient therapies. He states compliance with therapy as; states chills without objective fevers. 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 Obesity (BMI 30-39.9) Osteoarthritis Positive colorectal cancer screening using Cologuard test Pulmonary nodules PVD (peripheral vascular disease) Tubular adenoma Vitamin D deficiency Family History Father Diabetes mellitus HTN (hypertension) Mother Lung disease Surgical History History of uvulopalatopharyngoplasty Hx of appendectomy Hx of vein stripping Social History Household Members: Spouse and Children Alcohol intake: current Alcohol intake frequency: does not drink Patient Tobacco Use Status: Former Tobacco user Tobacco use type: Cigarette Cigarette Packs Per Day: 1 Years Smoked: 30 Advance Directives: No Meds Allergies Allergy/AdvReac Type Severity Reaction Status Date / Time meperidine [From DEMEROL] Allergy Intermediate BECAME Verified 12/25/21 08:57 VIOLENT Active Medications: Current Medications Acetaminophen (Acetaminophen 325 Mg Tablet) 650 mg PO Q6H PRN PRN Reason: Pain, Mild (Pain Scale 1-3) Enoxaparin Sodium (Enoxaparin Sodium 40 Mg/0.4 Ml Syringe) 40 mg SUBCUT Q24H GARCÍA Vancomycin HCl (Vancomycin/Ns) 2,000 mg in 520 mls @ 260 mls/hr IV ONCE ONE Stop: 07/21/22 10:59 Magnesium Hydroxide (Milk Of Magnesia 30 Ml Oral.Susp) 30 ml PO DAILY PRN PRN Reason: Constipation Melatonin (Melatonin 3 Mg Tablet) 6 mg PO BEDTIME PRN PRN Reason: Insomnia Ondansetron HCl (Ondansetron Hcl 4 Mg/2 Ml Vial) 4 mg IVPUSH Q8H PRN PRN Reason: Nausea and Vomiting Oxycodone HCl (Oxycodone Hcl Immed Release 5 Mg Tablet) 5 mg PO Q4H PRN PRN Reason: Pain, Moderate (Pain Scale 4-6 Pharmacy Consult (Consult Rx Perform Med Rec) 1 each MISCELLANE ONCE PRN PRN Reason: Consult order Sodium Chloride (0.9 % Sodium Chloride Flush 3 Ml Syringe) 3 ml IVFLUSH [facility] Medications Medication Instructions Recorded Confirmed Last Taken Type citalopram 40 mg tablet 40 mg PO DAILY 10/17/20 12/25/21 Unknown History pregabalin 200 mg capsule 200 mg PO BID 01/16/21 12/25/21 Unknown History cyclobenzaprine 5 mg tablet 1 tab PO BEDTIME PRN Muscle Spasm 07/21/22 Unknown History doxycycline monohydrate 100 mg 1 cap PO BID 07/21/22 Unknown History capsule insulin aspart U-100 100 unit/mL 5 - 14 unit subcut QID 07/21/22 07/21/22 Unknown History (3 mL) subcutaneous pen (Novolog Flexpen U-100 Insulin aspart) Physical Exam Vital Signs and Narrative: Vital Signs: Last Vital Signs Temp 98.4 F 07/21/22 07:49 Pulse 87 07/21/22 08:21 Resp 18 07/21/22 08:21 BP 131/81 07/21/22 08:21 Pulse Ox 95 07/21/22 08:21 O2 Del Method 07/21/22 08:21 BMI result Body Mass Index 36.2 Const: Other: Awake alert oriented x3 lying quietly on the stretcher Resp: Other: Clear to auscultation bilaterally no rales rhonchi or wheezes Cardio: Other: No S4; positive S1-S2; no S3 murmurs/rubs/gallops GI: Other: Soft nontender nondistended normoactive bowel sounds Neuro: Other: Cranial nerves 2-12 grossly intact as tested. Motor is 5/5 all extremities. Sensation is diminished in a stocking-glove distribution Extrem: Other: Bilateral great toe plantar foot ulcers left greater than right. Left toe has purulent drainage Results Labs CBC and Chem 7: 07/21/22 08:09 07/21/22 08:09 Labs: Laboratory Results - last 24 hr 07/21/22 07/21/22 07/21/22 08:09 08:09 08:09 MCV 87.9 MCH 29.9 MCHC 34.0 RDW 12.5 Plt Count 199 MPV 9.6 Immature Gran % (Auto) 0.2 Neut % (Auto) 69.3 Lymph % (Auto) 17.5 L [place] % (Auto) 10.4 Eos % (Auto) 1.8 Baso % (Auto) 0.8 Lymph # (Auto) 0.9 L [place] # (Auto) 0.5 Eos # (Auto) 0.1 Baso # (Auto) 0.0 Abs Immat Gran (auto) 0.01 Absolute Neuts (auto) 3.5 Absolute Nucleated RBC 0.000 Nucleated RBC % (auto) 0.0 ESR Anion Gap 15 Estim Creat Clear Calc 104.9 Estimated GFR > 60 Random Glucose 164 H Lactic Acid 1.9 Calcium 8.9 D Total Bilirubin 0.3 AST 17 ALT 13 Alkaline Phosphatase 58 C-Reactive Protein 2.11 H Total Protein 6.9 Albumin 3.9 Acetone, Qual COVID-19 (DESIRE) COVID-19 Clin Com 07/21/22 07/21/22 07/21/22 08:09 08:09 08:09 MCV MCH MCHC RDW Plt Count MPV Immature Gran % (Auto) Neut % (Auto) Lymph % (Auto) [place] % (Auto) Eos % (Auto) Baso % (Auto) Lymph # (Auto) [place] # (Auto) Eos # (Auto) Baso # (Auto) Abs Immat Gran (auto) Absolute Neuts (auto) Absolute Nucleated RBC Nucleated RBC % (auto) ESR 44 H Anion Gap Estim Creat Clear Calc Estimated GFR Random Glucose Lactic Acid Calcium Total Bilirubin AST ALT Alkaline Phosphatase C-Reactive Protein Total Protein Albumin Acetone, Qual Negative COVID-19 (DESIRE) Positive A COVID-19 Clin Com See Note Imaging Radiologist's Impressions: Impressions Foot X-Ray 07/21/22 08:22 IMPRESSION: 1. Bandages overlying the first digit without acute underlying osseous abnormality. 2. Curvilinear radiopaque density consistent with foreign body. Correlate with patient history and physical exam. Foot X-Ray 07/21/22 08:22 IMPRESSION: No significant acute abnormality. Assessment and Plan (1) Diabetic foot ulcer: Status: Acute (2) Diabetes type 2, uncontrolled: Status: Acute (3) PVD (peripheral vascular disease): Status: Acute (4) Hypertension: Qualifiers: Hypertension type: essential hypertension Qualified Code(s): I10 - Essential (primary) hypertension Status: Acute Plan 61-year-old male with longstanding history of type 2 diabetes requiring insulin presents with worsening diabetic foot ulcers on the plantar surface of both great toes. He has failed oral therapies with Keflex and then doxycycline. He will be admitted; workup osteomyelitis surgical consult 1. Bilateral diabetic foot ulcers -check MRI of both feet to rule out osteomyelitis -surgical consult for possible debridement -id consult -oxycodone p.r.n. for pain 2. Diabetes type 2 (poorly control) -will continue outpatient management with long-acting and short-acting coverage -lispro correctional scale -ADA diet 3. Hypertension -acceptable control on amlodipine -adjust as indicated 4. Neuropathy -continue of Flexeril and Lyrica Full code Lovenox Patient require at least 2 midnights going forward for IV antibiotics to treat diabetic foot ulcers that have failed outpatient therapies. This cannot be achieved a lesser acute setting Quality Stroke Does the patient have a stroke diagnosis?: No VTE Prior VTE?: No VTE Risk Level:: Medical - moderate - high VTE Device Contraindication: Treatment Not Indicated VTE Drug Contraindication: N/A - Med Ordered
[2022-07-21] MEDS: Enoxaparin Sodium 40 MG/0.4 ML SYRINGE SUBCUT (10:34)
[2022-07-21] MEDS: oxyCODONE HCl Immed Release 5 MG TABLET PO ×3 (10:43→21:24)
--- NOTE | 2022-07-21 10:54 | PHA.MEDREC ---
Pharmacy Consult ? Medication Reconciliation Pharmacy has completed the medication reconciliation.Spoke to patient and he gave medication list. Confirmed Trulicity is taken every Tuesday and last dose of all medications were 07/20 with exception of Trulicity this past Tuesday.
--- NOTE | 2022-07-21 12:54 | P.CONGS_ITS ---
History of Present Illness Consult details Consult date: 07/21/22 Narrative: 61-year-old male referred for toe ulcers. He has a known diabetic. He says he is being followed at the [facility] because of an ulcer initially only on the plantar aspect of the right big toe. He said he had a callus in this area that became on small ulcer. The past several weeks, he had noted ulcers will the plantar aspect the left big toe. He says he wants told yesterday by the [facility]ound Clinic to the ER because of this. He describes some drainage from these left big toe. He said the right big toe seemed to have been getting better. He describes some subjective chills with no documented fever at home. Review of Systems Constitutional: Constitutional: Reports chills and Denies fever(s) Cardiovascular: Cardiovascular: Denies chest pain, Denies dyspnea and Denies dyspnea on exertion Respiratory: Respiratory: Denies cough, Denies dyspnea and Denies dyspnea on exertion Gastrointestinal: Gastrointestinal: Denies hematochezia and Denies change in bowel habits Genitourinary: Genitourinary: Denies hematuria and Denies difficulty urinating Musculoskeletal: Musculoskeletal: Denies back pain and Denies limited range of motion Neurologic: Denies focal weakness and Denies convulsions Psychiatric: Psychiatric: Denies depression and Denies mood swings PMFSH Past Medical History Medical History Diabetes type 2, uncontrolled Diabetic nephropathy associated with type 2 diabetes mellitus Diabetic polyneuropathy associated with type 2 diabetes mellitus Dyslipidemia History of stroke Hypertension 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 of both eyes 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 Obesity (BMI 30-39.9) Osteoarthritis Positive colorectal cancer screening using Cologuard test Pulmonary nodules PVD (peripheral vascular disease) Tubular adenoma Vitamin D deficiency Family History Family History Father Diabetes mellitus HTN (hypertension) Mother Lung disease Surgical History Surgical History History of uvulopalatopharyngoplasty Hx of appendectomy Hx of vein stripping Social History Social History Household Members: Spouse and Children Alcohol intake: current Alcohol intake frequency: does not drink Patient Tobacco Use Status: Former Tobacco user Tobacco use type: Cigarette Cigarette Packs Per Day: 1 Years Smoked: 30 Advance Directives: No Meds Allergies Allergy/AdvReac Type Severity Reaction Status Date / Time meperidine [From DEMEROL] Allergy Intermediate BECAME Verified 12/25/21 08:57 VIOLENT Active Medications: Current Medications Acetaminophen (Acetaminophen 325 Mg Tablet) 650 mg PO Q6H PRN PRN Reason: Pain, Mild (Pain Scale 1-3) Enoxaparin Sodium (Enoxaparin Sodium 40 Mg/0.4 Ml Syringe) 40 mg SUBCUT Q24H [facility] Last Admin: 07/21/22 10:34 Dose: 40 mg Magnesium Hydroxide (Milk Of Magnesia 30 Ml Oral.Susp) 30 ml PO DAILY PRN PRN Reason: Constipation Melatonin (Melatonin 3 Mg Tablet) 6 mg PO BEDTIME PRN PRN Reason: Insomnia Ondansetron HCl (Ondansetron Hcl 4 Mg/2 Ml Vial) 4 mg IVPUSH Q8H PRN PRN Reason: Nausea and Vomiting Oxycodone HCl (Oxycodone Hcl Immed Release 5 Mg Tablet) 5 mg PO Q4H PRN PRN Reason: Pain, Moderate (Pain Scale 4-6 Last Admin: 07/21/22 10:43 Dose: 5 mg Pharmacy Consult (Consult Rx Perform Med Rec) 1 each MISCELLANE ONCE PRN PRN Reason: Consult order Sodium Chloride (0.9 % Sodium Chloride Flush 3 Ml Syringe) 3 ml IVFLUSH QSHIFT [facility] Home Medications Medication Instructions Recorded Confirmed Last Taken Type citalopram 40 mg tablet 40 mg PO DAILY 10/17/20 07/21/22 07/20/22 History pregabalin 200 mg capsule 200 mg PO BID 01/16/21 07/21/22 07/20/22 History doxycycline monohydrate 100 mg 1 cap PO BID 07/21/22 07/21/22 07/20/22 History capsule insulin aspart U-100 100 unit/mL 5 unit subcut QAM 07/21/22 07/21/22 07/20/22 History (3 mL) subcutaneous pen (Novolog Flexpen U-100 Insulin aspart) insulin aspart U-100 100 unit/mL 14 unit subcut TIDWM 07/21/22 07/21/22 07/20/22 History (3 mL) subcutaneous pen (Novolog Flexpen U-100 Insulin aspart) Physical Exam 2 Vital Signs: Vital Signs: Last Vital Signs Temp 98.4 F 07/21/22 07:49 Pulse 87 07/21/22 08:21 Resp 18 07/21/22 08:21 BP 131/81 07/21/22 08:21 Pulse Ox 95 07/21/22 08:21 O2 Del Method 07/21/22 08:21 BMI result Body Mass Index 36.2 Const: General: comfortable and no acute distress Orientation/consciousness: patient oriented x3 Neck: Neck: Yes no lymphadenopathy Resp: Auscultation: clear to auscultation bilaterally Cardio: Rhythm: regular rhythm GI: Palpation (GI): Soft to palpation, nontender and no guarding Neuro: General: patient oriented x3 Extrem: Other: Right big toe plantar aspect with note of a superficial ulcer noted by some thick callus, dry, no pus at this time, no necrotic tissue Left big toe plantar aspect is note of another ulcer, with scanty drainage, no gangrene, no cellulitis, about 2 cm in diameter Results Labs Result diagrams: 07/21/22 08:09 07/21/22 08:09 Labs: Abnormal lab results 07/21/22 07/21/22 07/21/22 Range/Units 08:09 08:09 08:09 RBC 4.38 L (4.60-5.80) X10*6/uL Hgb 13.1 L (14.0-18.0) g/dl Hct 38.5 L (42.0-52.0) % Lymph % (Auto) 17.5 L (20-40) % Lymph # (Auto) 0.9 L (1.2-4.9) X10*3/uL ESR (0-15) MM/HR BUN 19 H (9-16) mg/dL Random Glucose 164 H (60-115) mg/dL C-Reactive Protein 2.11 H (< or = 0.50) mg/dL COVID-19 (DESIRE) Positive A (Negative) 07/21/22 Range/Units 08:09 RBC (4.60-5.80) X10*6/uL Hgb (14.0-18.0) g/dl Hct (42.0-52.0) % Lymph % (Auto) (20-40) % Lymph # (Auto) (1.2-4.9) X10*3/uL ESR 44 H (0-15) MM/HR BUN (9-16) mg/dL Random Glucose (60-115) mg/dL C-Reactive Protein (< or = 0.50) mg/dL COVID-19 (DESIRE) (Negative) Short CBC 07/21/22 Range/Units 08:09 WBC 5.0 (4.8-10.8) X10*3/uL Hgb 13.1 L (14.0-18.0) g/dl Hct 38.5 L (42.0-52.0) % Plt Count 199 (160-400) X10*3/uL BMP 07/21/22 08:09 Sodium 135 Potassium 4.2 Chloride 100 Carbon Dioxide 24 BUN 19 H Creatinine 0.99 Calcium 8.9 D Liver Function 07/21/22 Range/Units 08:09 Total Bilirubin 0.3 (0.0-1.0) mg/dL AST 17 (5-37) U/L ALT 13 (0-40) U/L Alkaline Phosphatase 58 (39-117) U/L Albumin 3.9 (3.5-5.0) g/dL All other labs normal. Assessment and Plan (1) Diabetic foot ulcer: Status: Acute He has a known diabetic, with plantar ulcers on both the left and the right big toes. The right toe ulcer appears dry. The left toe ulcer has some image although this is scanty. There is no gangrene or any free fluid collection that is seen at this time. I have changes dressings. I would continue with wound care and IV antibiotics for now. His x-rays do not seem to suggest involvement of the phalanges. I will follow along while is in the hospital. There was mention of curvilinear density on the dorsum of the 2nd toe but there is no identifiable pathology on examination. Procedures Date of Service Date of Service: 07/21/22
[2022-07-21] MEDS: Pregabalin 200 MG CAPSULE PO ×2 (16:28→21:24)
[2022-07-21] MEDS: LORazepam 1 MG TABLET PO (16:28)
[2022-07-21] MEDS: amLODIPine Besylate 2.5 MG TABLET PO (16:28)
[2022-07-21 16:31] VITALS: BP 129/69; RESP 71; O2SAT 99
[2022-07-21 20:31] VITALS: BP 150/80; PULSE 83; RESP 18; TEMP 36.4; O2SAT 96
[2022-07-21 21:11] LABS: Glucose, Whole Blood 100 mg/dL (60-115)
[2022-07-21] MEDS: vancomycin HCL 1,000 MG in 0.9 % Sodium Chloride 250 ML 270 MG IV (21:13)
[2022-07-21] MEDS: 0.9 % Sodium Chloride Flush 3 ML SYRINGE IVFLUSH (22:37)
--- NOTE | 2022-07-21 23:11 | W.PM.IDCN ---
History of Present Illness Data of Consult Service Date: 07/21/22 Requesting physician: Bradly Ramirez Primary Care Provider: Lázaro Dubois MD HPI Reason for consult: diabetic foot infection He presents with discomfort plantar great toe for three weeks. He had some mild yellowish clear drainage and saw Wound Center. He was prescribed Doxycycline and Keflex and no improvement. He has plantar wound for 6-7 months healing under right great toe. He has never had [facility] IV antibiotics he reports [facility] Past Medical History Medical History Diabetes type 2, uncontrolled Diabetic nephropathy associated with type 2 diabetes mellitus Diabetic polyneuropathy associated with type 2 diabetes mellitus Dyslipidemia History of stroke Hypertension 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 of both eyes [facility] (current) use of insulin Obesity (BMI 30-39.9) Osteoarthritis Positive colorectal cancer screening using Cologuard test Pulmonary nodules PVD (peripheral vascular disease) Tubular adenoma Vitamin D deficiency Family History Family History Father Diabetes mellitus HTN (hypertension) Mother Lung disease Family history: reviewed and not pertinent Surgical History Surgical History History of uvulopalatopharyngoplasty Hx of appendectomy Hx of vein stripping Social History Social History Household Members: Family Household Members Other:: and son Do you presently have visiting nurse or other home services: No Alcohol intake: current Alcohol intake frequency: does not drink Patient Tobacco Use Status: Former Tobacco user Tobacco use type: Cigarette Cigarette Packs Per Day: 1 Years Smoked: 30 Meds Allergies Allergy/AdvReac Type Severity Reaction Status Date / Time meperidine [From DEMEROL] Allergy Intermediate BECAME Verified 12/25/21 08:57 VIOLENT Active Medications: Current Medications Acetaminophen (Acetaminophen 325 Mg Tablet) 650 mg PO Q6H PRN PRN Reason: Pain, Mild (Pain Scale 1-3) Amlodipine Besylate (Amlodipine Besylate 2.5 Mg Tablet) 2.5 mg PO DAILY GARCÍA; Protocol Last Admin: 07/21/22 16:28 Dose: 2.5 mg Atorvastatin Calcium (Atorvastatin Calcium 20 Mg Tablet) 20 mg PO DAILY [facility] Enoxaparin Sodium (Enoxaparin Sodium 40 Mg/0.4 Ml Syringe) 40 mg SUBCUT Q24H [facility] Last Admin: 07/21/22 10:34 Dose: 40 mg Escitalopram Oxalate (Escitalopram Oxalate 20 Mg Tablet) 20 mg PO DAILY [facility] Piperacillin Sod/Tazobactam (Sod 3.375 gm/ Sodium Chloride) 50 mls @ 100 mls/hr IV Q6H [facility] Last Admin: 07/21/22 22:33 Dose: 100 mls/hr Vancomycin HCl 1,000 mg/ (Sodium Chloride) 270 mls @ 270 mls/hr IV Q12H [facility] Last Infusion: 07/21/22 22:37 Dose: Infused Lorazepam (Lorazepam 1 Mg Tablet) 1 mg PO Q6H PRN PRN Reason: Anxiety Last Admin: 07/21/22 16:28 Dose: 1 mg Magnesium Hydroxide (Milk Of Magnesia 30 Ml Oral.Susp) 30 ml PO DAILY PRN PRN Reason: Constipation Melatonin (Melatonin 3 Mg Tablet) 6 mg PO BEDTIME PRN PRN Reason: Insomnia Ondansetron HCl (Ondansetron Hcl 4 Mg/2 Ml Vial) 4 mg IVPUSH Q8H PRN PRN Reason: Nausea and Vomiting Oxycodone HCl (Oxycodone Hcl Immed Release 5 Mg Tablet) 5 mg PO Q4H PRN PRN Reason: Pain, Moderate (Pain Scale 4-6 Last Admin: 07/21/22 21:24 Dose: 5 mg Pharmacy Consult (Consult Rx Perform Med Rec) 1 each MISCELLANE ONCE PRN PRN Reason: Consult order Pharmacy Consult (Consult Rx Vancomycin Dosing) 1 each MISCELLANE DAILY PRN PRN Reason: Consult order Pregabalin (Pregabalin 200 Mg Capsule) 200 mg PO BID [facility] Last Admin: 07/21/22 21:24 Dose: 200 mg Sodium Chloride (0.9 % Sodium Chloride Flush 3 Ml Syringe) 3 ml IVFLUSH QSHIFT [facility] Last Admin: 07/21/22 22:37 Dose: 3 ml Home Medications Medication Instructions Recorded Confirmed Last Taken Type citalopram 40 mg tablet 40 mg PO DAILY 10/17/20 07/21/22 07/20/22 History pregabalin 200 mg capsule 200 mg PO BID 01/16/21 07/21/22 07/20/22 History doxycycline monohydrate 100 mg 1 cap PO BID 07/21/22 07/21/22 07/20/22 History capsule insulin aspart U-100 100 unit/mL 5 unit subcut QAM 07/21/22 07/21/22 07/20/22 History (3 mL) subcutaneous pen (Novolog Flexpen U-100 Insulin aspart) insulin aspart U-100 100 unit/mL 14 unit subcut TIDWM 07/21/22 07/21/22 07/20/22 History (3 mL) subcutaneous pen (Novolog Flexpen U-100 Insulin aspart) Physical Exam Vital Signs: Vital Signs: Last Vital Signs Temp 97.6 F 07/21/22 20:31 Pulse 83 07/21/22 20:31 Resp 18 07/21/22 20:31 BP 150/80 H 07/21/22 20:31 Pulse Ox 96 07/21/22 20:31 O2 Del Method 07/21/22 20:31 BMI result Body Mass Index 36.2 Const: General: cooperative HEENT: Head: Yes normal to inspection Face and sinus: Yes normal facial exam Mouth: Normal oral and palatal mucosa present Teeth and gingiva: dentition normal Eyes: General: appearance normal, both eyes and all related structures Pupils: Equal, round and reactive pupils present Resp: Effort & Inspection: normal respiratory effort Cardio: Rate: regular rate Rhythm: regular rhythm GI: Palpation (GI): Soft to palpation and nontender : General: Yes no CVA tenderness Back/Spine/Pelvis: Back: no CVA tenderness Skin: General skin exam: no rashes or lesions noted Neuro: General: moves all extremities Cranial nerves: Yes Equal, round and reactive pupils present Extrem: Other: granulation tissue 1 cm wound ,no cellulitis plantar right great toe left great toe cellulitis streaking dorsum of foot with plantar wound erythema 1 cm Psych: Appearance: grossly normal Results Labs CBC & Chem 7: 07/21/22 08:09 07/21/22 08:09 Labs: Short CBC 07/21/22 Range/Units 08:09 WBC 5.0 (4.8-10.8) X10*3/uL Hgb 13.1 L (14.0-18.0) g/dl Hct 38.5 L (42.0-52.0) % Plt Count 199 (160-400) X10*3/uL BMP 07/21/22 08:09 Sodium 135 Potassium 4.2 Chloride 100 Carbon Dioxide 24 BUN 19 H Creatinine 0.99 Calcium 8.9 D Liver Function 07/21/22 Range/Units 08:09 Total Bilirubin 0.3 (0.0-1.0) mg/dL AST 17 (5-37) U/L ALT 13 (0-40) U/L Alkaline Phosphatase 58 (39-117) U/L Albumin 3.9 (3.5-5.0) g/dL Assessment and Plan (1) Diabetic foot ulcer: Status: Acute He has possible gram negative and gram positive organisms He has possible osteomyelitis and no treatment so far left and possible right great toe Plan IV Vancomycin and Zosyn or Cefepime Await cultures Await MRI Likely six weeks IV antibiotics depending on culture if positive osteomyelitis Check ESR
[2022-07-21 23:35] VITALS: BP 126/64; PULSE 87; RESP 16; TEMP 36.9; O2SAT 97
[2022-07-22] MEDS: oxyCODONE HCl Immed Release 5 MG TABLET PO ×3 (03:29→20:57)
[2022-07-22] MEDS: Piperacillin Sodium/Tazobactam 3.375 GM in 0.9 % Sodium Chloride 50 ML IV ×4 (03:30→20:57)
[2022-07-22 07:15] VITALS: BP 125/61; PULSE 75; RESP 20; TEMP 36.6; O2SAT 95
[2022-07-22 07:26] LABS: MANUAL DIFF FLAG NO
[2022-07-22 07:30] LABS: Eosinophils Absolute Auto 0.1 X10*3/uL (0.0-0.4); Eosinophils Percent Auto 3.4 % (0-4); Imm Gran Abs Auto 0.01 X10*3/uL (0.00-0.03); Imm Gran Pct Auto 0.2 % (0.0-0.4); Lymphocytes Absolute Auto 1.3 X10*3/uL (1.2-4.9); Lymphocytes Percent Auto 30.7 % (20-40); Mean Corpuscular HGB Conc 33.3 g/dl (31.0-36.0); Mean Corpuscular Hemoglobin 29.3 pg (27.0-33.0); Mean Corpuscular Volume 87.8 fL (80.0-98.0); Mean Platelet Volume 9.7 fL (9.4-12.4); Monocytes Absolute Auto 0.6 X10*3/uL (0.1-1.2); Monocytes Percent Auto 13.4 % (2-11); Neutrophils Absolute Auto 2.1 x10*3/uL (2.0-8.3); Neutrophils Percent Auto 51.3 % (45-73); Platelet Count 195 X10*3/uL (160-400); Red Blood Count 4.44 X10*6/uL (4.60-5.80); Red Cell Distribution Width 12.4 % (11.0-16.0); White Blood Count 4.2 X10*3/uL (4.8-10.8)
[2022-07-22] MEDS: amLODIPine Besylate 2.5 MG TABLET PO (07:36)
[2022-07-22] MEDS: Escitalopram Oxalate 20 MG TABLET PO (07:36)
[2022-07-22] MEDS: Atorvastatin Calcium 20 MG TABLET PO (07:36)
[2022-07-22] MEDS: vancomycin HCL 1,000 MG in 0.9 % Sodium Chloride 250 ML 270 MG IV ×2 (07:36→21:42)
[2022-07-22] MEDS: Pregabalin 200 MG CAPSULE PO ×2 (07:36→20:57)
[2022-07-22] MEDS: 0.9 % Sodium Chloride Flush 3 ML SYRINGE IVFLUSH ×3 (07:43→21:44)
[2022-07-22 07:48] LABS: Glucose, Whole Blood 147 mg/dL (60-115)
[2022-07-22 07:52] LABS: Alanine Aminotransferase 11 U/L (0-40); Albumin Level 3.7 g/dL (3.5-5.0); Alkaline Phosphatase 56 U/L (39-117); Anion Gap 17 (12-20); Aspartate Amino Transferase 16 U/L (5-37); Bilirubin Total 0.5 mg/dL (0.0-1.0); Blood Urea Nitrogen 17 mg/dL (9-16); Calcium 8.9 mg/dL (8.4-10.2); Carbon Dioxide 24 mmol/L (22-29); Chloride 101 mmol/L (96-108); Creatinine Clr Calc Pharmacy 92.7; Estimated Glomerular Filt Rate > 60; Glucose Fasting 139 mg/dL (60-99); Potassium 4.2 mmol/L (3.3-5.1); Sodium 138 mmol/L (135-145); Total Protein 6.7 g/dL (6.5-8.0)
--- NOTE | 2022-07-22 08:40 | MHC.CM.PN ---
Patient is Covid (+); CM spoke with Patient over the phone at [phone]. Patient lives in a house with his and adult Son and home/resume [facility] is the goal. CM has initiated and will follow for dc planning. Patient has received Moderna/Covid vax X3 and his PCP is Dr. Lázaro Dubois.
[2022-07-22] MEDS: Enoxaparin Sodium 40 MG/0.4 ML SYRINGE SUBCUT (09:23)
[2022-07-22 10:54] VITALS: BP 148/85; PULSE 73; RESP 20; TEMP 36.6; O2SAT 95
[2022-07-22 11:24] LABS: Glucose, Whole Blood 128 mg/dL (60-115)
--- NOTE | 2022-07-22 12:07 | MHC.CM.PN ---
Per MD rounds Patient will need 6 weeks of IV ABX. PT preferences requested. Referrals to [facility] and [facility] have been sent. CM will follow.
--- NOTE | 2022-07-22 12:24 | MHC.CM.PN ---
Per ROUNDS discussion, Patient will need LT IVABT; referrals have been made to [facility] and [facility]. CM will follow.
--- NOTE | 2022-07-22 15:28 | HO.PM.IMPN ---
Subjective Subjective Date of Service: 07/22/22 Interval History: No acute issues overnight. Remains tolerant therapy Review of Systems Denies chest pain Denies shortness of breath Denies nausea vomiting diarrhea Physical Exam Vital Signs: Vital Signs: Last Vital Signs Temp 97.8 F 07/22/22 10:54 Pulse 73 07/22/22 10:54 Resp 20 07/22/22 10:54 BP 148/85 H 07/22/22 10:54 Pulse Ox 95 07/22/22 10:54 O2 Del Method 07/22/22 10:54 BMI result Body Mass Index 36.2 Const: Other: No acute distress Resp: Other: Clear to auscultation bilaterally no rales rhonchi wheezes Cardio: Other: No S4; positive S1-S2; no S3 murmurs rubs or gallops GI: Other: Soft nontender nondistended normoactive bowel sounds Extrem: Other: No edema bilateral Objective Data Active Medications Acetaminophen (Acetaminophen 325 Mg Tablet) 650 mg PO Q6H PRN PRN Reason: Pain, Mild (Pain Scale 1-3) Amlodipine Besylate (Amlodipine Besylate 2.5 Mg Tablet) 2.5 mg PO DAILY COUNT INCLUDES THE [facility]; Protocol Last Admin: 07/22/22 07:36 Dose: 2.5 mg Documented By: YANET Atorvastatin Calcium (Atorvastatin Calcium 20 Mg Tablet) 20 mg PO DAILY COUNT INCLUDES THE [facility] Last Admin: 07/22/22 07:36 Dose: 20 mg Documented By: YANET Enoxaparin Sodium (Enoxaparin Sodium 40 Mg/0.4 Ml Syringe) 40 mg SUBCUT Q24H COUNT INCLUDES THE [facility] Last Admin: 07/22/22 09:23 Dose: 40 mg Documented By: YANET Escitalopram Oxalate (Escitalopram Oxalate 20 Mg Tablet) 20 mg PO DAILY COUNT INCLUDES THE [facility] Last Admin: 07/22/22 07:36 Dose: 20 mg Documented By: YANET Piperacillin Sod/Tazobactam (Sod 3.375 gm/ Sodium Chloride) 50 mls @ 100 mls/hr IV Q6H COUNT INCLUDES THE [facility] Last Admin: 07/22/22 15:21 Dose: 100 mls/hr Documented By: YANET Vancomycin HCl 1,000 mg/ (Sodium Chloride) 270 mls @ 270 mls/hr IV Q12H COUNT INCLUDES THE [facility] Last Infusion: 07/22/22 09:30 Dose: 0 mls/hr Documented By: YANET Lorazepam (Lorazepam 1 Mg Tablet) 1 mg PO Q6H PRN PRN Reason: Anxiety Last Admin: 07/21/22 16:28 Dose: 1 mg Documented By: LARRY Magnesium Hydroxide (Milk Of Magnesia 30 Ml Oral.Susp) 30 ml PO DAILY PRN PRN Reason: Constipation Melatonin (Melatonin 3 Mg Tablet) 6 mg PO BEDTIME PRN PRN Reason: Insomnia Ondansetron HCl (Ondansetron Hcl 4 Mg/2 Ml Vial) 4 mg IVPUSH Q8H PRN PRN Reason: Nausea and Vomiting Oxycodone HCl (Oxycodone Hcl Immed Release 5 Mg Tablet) 5 mg PO Q4H PRN PRN Reason: Pain, Moderate (Pain Scale 4-6 Last Admin: 07/22/22 07:46 Dose: 5 mg Documented By: YANET Pharmacy Consult (Consult Rx Perform Med Rec) 1 each MISCELLANE ONCE PRN PRN Reason: Consult order Pharmacy Consult (Consult Rx Vancomycin Dosing) 1 each MISCELLANE DAILY PRN PRN Reason: Consult order Pregabalin (Pregabalin 200 Mg Capsule) 200 mg PO BID COUNT INCLUDES THE [facility] Last Admin: 07/22/22 07:36 Dose: 200 mg Documented By: YANET Sodium Chloride (0.9 % Sodium Chloride Flush 3 Ml Syringe) 3 ml IVFLUSH QSHIFT COUNT INCLUDES THE [facility] Last Admin: 07/22/22 15:21 Dose: 3 ml Documented By: YANET Labs CBC & Chem 7: 07/22/22 07:13 07/22/22 07:13 Labs: Laboratory Results - last 24 hr 07/21/22 07/22/22 07/22/22 20:42 07:13 07:13 MCV 87.8 MCH 29.3 MCHC 33.3 RDW 12.4 Plt Count 195 MPV 9.7 Immature Gran % (Auto) 0.2 Neut % (Auto) 51.3 Lymph % (Auto) 30.7 [place] % (Auto) 13.4 H Eos % (Auto) 3.4 Baso % (Auto) 1.0 Lymph # (Auto) 1.3 [place] # (Auto) 0.6 Eos # (Auto) 0.1 Baso # (Auto) 0.0 Abs Immat Gran (auto) 0.01 Absolute Neuts (auto) 2.1 Absolute Nucleated RBC 0.000 Nucleated RBC % (auto) 0.0 Anion Gap 17 Estim Creat Clear Calc 92.7 Estimated GFR > 60 POC Glucose 100 Fasting Glucose 139 H Calcium 8.9 Total Bilirubin 0.5 AST 16 ALT 11 Alkaline Phosphatase 56 Total Protein 6.7 Albumin 3.7 07/22/22 07/22/22 07:23 10:52 MCV MCH MCHC RDW Plt Count MPV Immature Gran % (Auto) Neut % (Auto) Lymph % (Auto) [place] % (Auto) Eos % (Auto) Baso % (Auto) Lymph # (Auto) [place] # (Auto) Eos # (Auto) Baso # (Auto) Abs Immat Gran (auto) Absolute Neuts (auto) Absolute Nucleated RBC Nucleated RBC % (auto) Anion Gap Estim Creat Clear Calc Estimated GFR POC Glucose 147 H 128 H Fasting Glucose Calcium Total Bilirubin AST ALT Alkaline Phosphatase Total Protein Albumin Microbiology Microbiology Results: Microbiology 07/21/22 08:31 Blood Culture - Preliminary Blood - Venous No growth after 24 hours. 07/21/22 08:09 Blood Culture - Preliminary Blood - Venous No growth after 24 hours. Assessment and Plan (1) Diabetic foot ulcer: Status: Acute (2) Diabetes type 2, uncontrolled: Status: Acute Plan 61-year-old male with longstanding history of type 2 diabetes requiring insulin presents with worsening diabetic foot ulcers on the plantar surface of both great toes.? He has failed oral therapies with Keflex and then doxycycline.? He will be admitted; workup osteomyelitis surgical consult 1. Bilateral diabetic foot ulcers -MRI negative for osteomyelitis -surgical follow up -oxycodone p.r.n. for pain 2. Diabetes type 2 (poorly control) -will continue outpatient management with long-acting and short-acting coverage -lispro correctional scale -ADA diet 3. Hypertension -acceptable control on amlodipine -adjust as indicated 4. Neuropathy -continue of Flexeril and Lyrica Requires ongoing hospitalization for IV antibiotics to treat cellulitis Quality Stroke Does the patient have a stroke diagnosis?: No VTE Prior VTE?: No VTE Risk Level:: Medical - moderate - high VTE Device Contraindication: Treatment Not Indicated VTE Drug Contraindication: N/A - Med Ordered
[2022-07-22 15:47] VITALS: BP 157/89; PULSE 73; RESP 19; TEMP 36.8
[2022-07-22 16:00] VITALS: BP 157/89; PULSE 73; RESP 19; TEMP 36.8
[2022-07-22 20:37] LABS: Glucose, Whole Blood 108 mg/dL (60-115)
[2022-07-22 21:03] LABS: Vancomycin Trough 13.1 mcg/mL (10.0-20.0)
[2022-07-23] VITALS: PULSE 75; RESP 16; TEMP 37.2; O2SAT 97
[2022-07-23] MEDS: oxyCODONE HCl Immed Release 5 MG TABLET PO ×2 (03:31→11:44)
[2022-07-23] MEDS: Piperacillin Sodium/Tazobactam 3.375 GM in 0.9 % Sodium Chloride 50 ML IV ×2 (03:31→11:36)
[2022-07-23 03:32] VITALS: BP 129/75; PULSE 72; RESP 15; TEMP 36.9; O2SAT 95
[2022-07-23 05:19] LABS: Estimated Average Glucose 146 mg/dL; Hemoglobin A1c % 6.7 %
[2022-07-23 06:33] LABS: MANUAL DIFF FLAG NO
[2022-07-23 06:42] LABS: Basophils Percent Auto 0.7 % (0-2); Eosinophils Absolute Auto 0.1 X10*3/uL (0.0-0.4); Eosinophils Percent Auto 4.6 % (0-4); Hematocrit 36.9 % (42.0-52.0); Hemoglobin 12.5 g/dl (14.0-18.0); Imm Gran Abs Auto 0.01 X10*3/uL (0.00-0.03); Imm Gran Pct Auto 0.4 % (0.0-0.4); Lymphocytes Absolute Auto 1.2 X10*3/uL (1.2-4.9); Lymphocytes Percent Auto 40.5 % (20-40); Mean Corpuscular HGB Conc 33.9 g/dl (31.0-36.0); Mean Corpuscular Hemoglobin 29.6 pg (27.0-33.0); Mean Corpuscular Volume 87.2 fL (80.0-98.0); Mean Platelet Volume 9.8 fL (9.4-12.4); Monocytes Absolute Auto 0.3 X10*3/uL (0.1-1.2); Monocytes Percent Auto 10.9 % (2-11); Neutrophils Absolute Auto 1.2 x10*3/uL (2.0-8.3); Neutrophils Percent Auto 42.9 % (45-73); Platelet Count 204 X10*3/uL (160-400); Red Blood Count 4.23 X10*6/uL (4.60-5.80); Red Cell Distribution Width 12.2 % (11.0-16.0); White Blood Count 2.8 X10*3/uL (4.8-10.8)
[2022-07-23 07:11] LABS: Alanine Aminotransferase 11 U/L (0-40); Albumin Level 3.7 g/dL (3.5-5.0); Alkaline Phosphatase 53 U/L (39-117); Anion Gap 15 (12-20); Aspartate Amino Transferase 14 U/L (5-37); Bilirubin Total 0.4 mg/dL (0.0-1.0); Blood Urea Nitrogen 14 mg/dL (9-16); Calcium 8.6 mg/dL (8.4-10.2); Carbon Dioxide 24 mmol/L (22-29); Chloride 102 mmol/L (96-108); Creatinine Clr Calc Pharmacy 114.1; Estimated Glomerular Filt Rate > 60; Glucose Fasting 106 mg/dL (60-99); Potassium 3.9 mmol/L (3.3-5.1); Sodium 137 mmol/L (135-145); Total Protein 6.6 g/dL (6.5-8.0)
[2022-07-23] MEDS: Escitalopram Oxalate 20 MG TABLET PO (07:47)
[2022-07-23] MEDS: vancomycin HCL 1,000 MG in 0.9 % Sodium Chloride 250 ML 270 MG IV (07:47)
[2022-07-23] MEDS: Atorvastatin Calcium 20 MG TABLET PO (07:47)
[2022-07-23] MEDS: amLODIPine Besylate 2.5 MG TABLET PO (07:47)
[2022-07-23] MEDS: Pregabalin 200 MG CAPSULE PO (07:48)
[2022-07-23] MEDS: 0.9 % Sodium Chloride Flush 3 ML SYRINGE IVFLUSH ×2 (07:50→15:33)
[2022-07-23 08:00] VITALS: BP 160/90; PULSE 67; RESP 20; TEMP 36.8; O2SAT 97
[2022-07-23 08:36] LABS: Glucose, Whole Blood 110 mg/dL (60-115)
--- NOTE | 2022-07-23 09:29 | HE.PHANOTE ---
Vanco dosing Trough ordered for 07/24/22. Scr stable at 0.91 and dose continued at 1000 mg every 12 hours.
[2022-07-23 11:28] LABS: Glucose, Whole Blood 137 mg/dL (60-115)
[2022-07-23] MEDS: Enoxaparin Sodium 40 MG/0.4 ML SYRINGE SUBCUT (11:36)
[2022-07-23 11:43] VITALS: BP 168/87; PULSE 67; RESP 18; TEMP 36.7; O2SAT 95
[2022-07-23 15:15] VITALS: BP 168/87; PULSE 73; RESP 18; TEMP 36.4; O2SAT 95
--- NOTE | 2022-07-23 15:18 | P.DS_ITS ---
DS: Providers Provider Date of Service: 07/23/22 Date of admission: 07/21/22 09:48 Date of discharge: 07/23/22 Primary care physician: Lázaro Dubois MD Consults: 07/21/22 10:18 Consult to General Surgery Stat Consulting Provider: Femi Brown Reason for consultation: Diabetic foot ulcer Has provider been notified: No Consult to Infectious Diseases Stat Consulting Provider: Adeola Gallagher Reason for consultation: diabetic foot ulcer Has provider been notified: No Attending physician on discharge: Rober Dorado Discharging clinician: Faby Herrera DS: Diagnosis Discharge Diagnosis (1) Diabetic foot ulcer: Status: Acute (2) Diabetes type 2, uncontrolled: Status: Acute DS: Summary Hospital Course Hospital Course: From H&P on day of admission 61-year-old male with longstanding history of insulin dependent diabetes presents with bilateral diabetic foot ulcers that have worsened despite therapy with Keflex and then with doxycycline.? He states he has been followed at the wound clinic; was seen 07/20/2022 and at their advice presented to ER secondary to failing outpatient therapies.? He states compliance with therapy as; states chills without objective fevers.? He states otherwise his health has at baseline B/l diabetic foot ulcers. he was initially treated with IV vancomycin and Zosyn. He had no evidence of sepsis. MRI of bilateral feet showed no evidence of osteomyelitis. He was seen in consultation by ID who recommended 2 weeks of IV ertapenem. Midline was placed 07/23 and he received dose of ertapenem prior to discharge. recommend to follow-up with Dr. Gallagher of Infectious Diseases and to continue follow-up in [facility]. Time Spent with Patient Time attestation: Total time spent providing and/or coordinating discharge services: Discharge coordination time: Greater than 30 minutes Quality: Safe Use of Opioids Does Pt have an Active Cancer Diagnosis on the Problem List?: No Quality: Stroke Does the patient have a stroke diagnosis?: No Physical Exam Vital Signs: Vital Signs: Last Vital Signs Temp 97.6 F 07/23/22 15:15 Pulse 73 07/23/22 15:15 Resp 18 07/23/22 15:15 BP 168/87 H 07/23/22 15:15 Pulse Ox 95 07/23/22 15:15 O2 Del Method 07/23/22 15:15 FiO2 97 07/22/22 16:00 BMI result Body Mass Index 36.2 Const: General: cooperative, comfortable, alert and awake Nutritional Appearance: average body habitus Orientation/consciousness: patient oriented x3 Resp: Effort & Inspection: normal respiratory effort and able to speak in complete sentences Auscultation: clear to auscultation bilaterally Cardio: Rate: regular rate Heart sounds: S1 normal heart sound present and S2 normal heart sound present GI: Inspection: No distended Palpation (GI): Soft to palpation and nontender Skin: Other: Neuro: General: patient oriented x3 Extrem: General: Yes no pedal edema DS: Data Data Completed and Pending Labs on day of discharge: Laboratory Results - last 24 hr 07/22/22 07/22/22 07/22/22 20:01 20:33 20:59 WBC RBC Hgb Hct MCV MCH MCHC RDW Plt Count MPV Immature Gran % (Auto) Neut % (Auto) Lymph % (Auto) [place] % (Auto) Eos % (Auto) Baso % (Auto) Lymph # (Auto) [place] # (Auto) Eos # (Auto) Baso # (Auto) Abs Immat Gran (auto) Absolute Neuts (auto) Absolute Nucleated RBC Nucleated RBC % (auto) Sodium Potassium Chloride Carbon Dioxide Anion Gap BUN Creatinine Estim Creat Clear Calc Estimated GFR POC Glucose 108 Fasting Glucose Estimat Average Glucose 146 Hemoglobin A1c % 6.7 Calcium Total Bilirubin AST ALT Alkaline Phosphatase Total Protein Albumin Vancomycin Trough 13.1 07/23/22 07/23/22 07/23/22 06:25 06:25 08:32 WBC 2.8 L RBC 4.23 L Hgb 12.5 L Hct 36.9 L MCV 87.2 MCH 29.6 MCHC 33.9 RDW 12.2 Plt Count 204 MPV 9.8 Immature Gran % (Auto) 0.4 Neut % (Auto) 42.9 L Lymph % (Auto) 40.5 H [place] % (Auto) 10.9 Eos % (Auto) 4.6 H Baso % (Auto) 0.7 Lymph # (Auto) 1.2 [place] # (Auto) 0.3 Eos # (Auto) 0.1 Baso # (Auto) 0.0 Abs Immat Gran (auto) 0.01 Absolute Neuts (auto) 1.2 L Absolute Nucleated RBC 0.000 Nucleated RBC % (auto) 0.0 Sodium 137 Potassium 3.9 Chloride 102 Carbon Dioxide 24 Anion Gap 15 BUN 14 Creatinine 0.91 Estim Creat Clear Calc 114.1 Estimated GFR > 60 POC Glucose 110 Fasting Glucose 106 H Estimat Average Glucose Hemoglobin A1c % Calcium 8.6 Total Bilirubin 0.4 AST 14 ALT 11 Alkaline Phosphatase 53 Total Protein 6.6 Albumin 3.7 Vancomycin Trough 07/23/22 10:59 WBC RBC Hgb Hct MCV MCH MCHC RDW Plt Count MPV Immature Gran % (Auto) Neut % (Auto) Lymph % (Auto) [place] % (Auto) Eos % (Auto) Baso % (Auto) Lymph # (Auto) [place] # (Auto) Eos # (Auto) Baso # (Auto) Abs Immat Gran (auto) Absolute Neuts (auto) Absolute Nucleated RBC Nucleated RBC % (auto) Sodium Potassium Chloride Carbon Dioxide Anion Gap BUN Creatinine Estim Creat Clear Calc Estimated GFR POC Glucose 137 H Fasting Glucose Estimat Average Glucose Hemoglobin A1c % Calcium Total Bilirubin AST ALT Alkaline Phosphatase Total Protein Albumin Vancomycin Trough Preliminary micro results at discharge 07/21/22 08:31 Blood Culture - Preliminary Blood - Venous No growth after 48 hours. 07/21/22 08:09 Blood Culture - Preliminary Blood - Venous No growth after 48 hours. Discharge Plan Discharge Anticipated Discharge Date/Time: 07/23/22 14:57 Patient Disposition: Home Health Service Discharge Diagnosis: diabetic foot ulcer Referrals: Adeola Gallagher MD [Physician] - 1 Week Lázaro Dubois MD [Primary Care Provider] - 1 Week Discharge Medications: Continued atorvastatin 20 mg tablet 20 mg PO DAILY Qty: 90 1RF Ozempic 1 mg/dose (4 mg/3 mL) pen injector 1 mg subcut QWEEK 90 Days Qty: 9 2RF Rx Instructions: TAKEN EVERY TUESDAY amlodipine 2.5 mg tablet 2.5 mg PO DAILY 90 Days Qty: 90 1RF insulin aspart U-100 [Novolog Flexpen U-100 Insulin] 100 unit/mL (3 mL) insulin pen 5 unit subcut QAM Rx Instructions: WITH COFFEE insulin aspart U-100 [Novolog Flexpen U-100 Insulin] 100 unit/mL (3 mL) insulin pen 14 unit subcut TIDWM citalopram 40 mg tablet 40 mg PO DAILY pregabalin 200 mg capsule 200 mg PO BID Discontinued doxycycline monohydrate 100 mg capsule 1 cap PO BID Label Comments: PT STATES HE HAS 4 TABLETS LEFT AT HOME Rx Instructions: TO BE TAKEN THROUGH 07/22/22 No Action (DME) FreeStyle Hema 2 Sensor Kit See Rx Instructions .ROUTE .MEDSUPPLY Qty: 2 11RF Rx Instructions: As directed every 2 weeks (DME) pen needle, diabetic [BD Deysi 2nd Gen Pen Needle] 32 gauge x 5/32 needle See Rx Instructions .MEDSUPPLY Qty: 400 4RF Rx Instructions: 5 times a day (DME) FreeStyle Precision Nabil Strips Strip See Rx Instructions .MEDSUPPLY Qty: 25 6RF Rx Instructions: once a day for calibration Discharge Orders: Discharge Order (Routine); Ordered 07/23/22 Ordered By: Faby Herrera Activity on Discharge: As tolerated Stand Alone Forms: Patient Portal Discharge page Care Plan Goals: see below Health Concerns: diabetic foot ulcer Plan of Treatment: complete 2 weeks of IV ertapenem once daily as prescribed. additional antibi otics may be necessary depending on response to therapy call to schedule follow-up with Dr. Gallagher of infectious diseases continue to follow up in [facility] Call to schedule follow up appointment with PCP Assessment: see discharge summary Discharge Date/Time: 07/23/22 18:03
--- NOTE | 2022-07-23 15:25 | HO.MIDLINE ---
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 Using ultrasound guidance, right basilic vein access was obtained in a single attempt by this RN. A20G 10cm Bard Powerline Midline was positioned. The procedure was performed in room 272. Ultrasound was used to document vein patency and for needle entry. A formal ultrasound picture was recorded. Vascular Cigar Wrapper Tender Automatic has released the line for use and it is currently dressed with a StatLock, Tegaderm, and CHG disc. Verification has been performed for blood return and line patency. Arm Circumference: 34 cm Equipment: 20 G 10 cm Bard PowerGlide Midline Catheter Type: 20 G 10 cm Bard PowerGLide Midline Lot #: [id number]
[2022-07-23 16:13] LABS: Glucose, Whole Blood 152 mg/dL (60-115)
[2022-07-23] MEDS: Ertapenem Sodium 1 GM in 0.9 % Sodium Chloride 50 ML IV (17:03)
[2022-07-23] MEDS: Insulin Lispro 100 UNIT/ML 3 ML VIAL SUBCUT (17:04)
== END 2022-07-23 18:03 | disposition home health service (06) | DRG 637 ==
LOC: HO.ED 08:40 → HO.EDOVER 09:54 → HO.IMC 19:14
PROVIDERS: Student in an Organized Health Care Education/Training Program; Admitting Provider Hospitalist; Emergency Provider Emergency Medicine; PCP Family Medicine; Visit Provider Physician Assistant Medical
DX: E11.621 Type 2 diabetes mellitus with foot ulcer (principal); U07.1 COVID-19; L97.409 Non-pressure chronic ulcer of unspecified heel and midfoot with unspecified severity; E11.42 Type 2 diabetes mellitus with diabetic polyneuropathy; E78.5 Hyperlipidemia, unspecified; L97.529 Non-pressure chronic ulcer of other part of left foot with unspecified severity; L97.519 Non-pressure chronic ulcer of other part of right foot with unspecified severity; I10 Essential (primary) hypertension; H35.033 Hypertensive retinopathy, bilateral; E11.65 Type 2 diabetes mellitus with hyperglycemia; E11.51 Type 2 diabetes mellitus with diabetic peripheral angiopathy without gangrene; Z87.891 Personal history of nicotine dependence; Z88.5 Allergy status to narcotic agent; Z79.4 Long term (current) use of insulin; Z79.899 Other long term (current) drug therapy
CPT/HCPCS: 36410; 36415; 73630; 73720; 80053; 80202; 82009; 82947; 83036; 83605; 85025; 85652; 86140; 87040; 87635; 99219; 99285; A9585; J1335; J1650; J2543; J3370

== ENCOUNTER 2022-07-27 16:47 | Outpatient (REF) | payer OTHER, SELFPAY ==
[2022-07-27 16:51] LABS: MANUAL DIFF FLAG NO
[2022-07-27 16:55] LABS: Basophils Percent Auto 0.4 % (0-2); Eosinophils Absolute Auto 0.1 X10*3/uL (0.0-0.4); Eosinophils Percent Auto 1.8 % (0-4); Imm Gran Abs Auto 0.02 X10*3/uL (0.00-0.03); Imm Gran Pct Auto 0.3 % (0.0-0.4); Lymphocytes Percent Auto 26.4 % (20-40); Mean Corpuscular HGB Conc 34.1 g/dl (31.0-36.0); Mean Corpuscular Hemoglobin 29.4 pg (27.0-33.0); Mean Corpuscular Volume 86.3 fL (80.0-98.0); Mean Platelet Volume 10.1 fL (9.4-12.4); Monocytes Absolute Auto 0.5 X10*3/uL (0.1-1.2); Monocytes Percent Auto 7.1 % (2-11); Neutrophils Absolute Auto 4.9 x10*3/uL (2.0-8.3); Platelet Count 285 X10*3/uL (160-400); Red Cell Distribution Width 12.5 % (11.0-16.0); White Blood Count 7.6 X10*3/uL (4.8-10.8)
[2022-07-27 17:47] LABS: Anion Gap 17 (12-20); Blood Urea Nitrogen 19 mg/dL (9-16); Calcium 9.3 mg/dL (8.4-10.2); Carbon Dioxide 26 mmol/L (22-29); Chloride 99 mmol/L (96-108); Estimated Glomerular Filt Rate > 60; Glucose Random 142 mg/dL (60-115); Sodium 138 mmol/L (135-145)
== END 2022-07-27 16:48 | disposition home or self-care (01) ==
LOC: HO.HVNA 16:47
PROVIDERS: Visit Provider Internal Medicine
DX: Z79.2 Long term (current) use of antibiotics (principal)
CPT/HCPCS: 36415; 80048; 85025

== ENCOUNTER 2022-08-04 13:03 | Outpatient (REF) | payer OTHER, SELFPAY ==
[2022-08-04 13:06] LABS: MANUAL DIFF FLAG NO
[2022-08-04 13:12] LABS: Basophils Percent Auto 0.5 % (0-2); Eosinophils Absolute Auto 0.2 X10*3/uL (0.0-0.4); Eosinophils Percent Auto 3.8 % (0-4); Hematocrit 38.4 % (42.0-52.0); Imm Gran Abs Auto 0.02 X10*3/uL (0.00-0.03); Imm Gran Pct Auto 0.4 % (0.0-0.4); Lymphocytes Absolute Auto 1.1 X10*3/uL (1.2-4.9); Lymphocytes Percent Auto 20.6 % (20-40); Mean Corpuscular HGB Conc 33.9 g/dl (31.0-36.0); Mean Corpuscular Hemoglobin 29.9 pg (27.0-33.0); Mean Corpuscular Volume 88.3 fL (80.0-98.0); Mean Platelet Volume 10.9 fL (9.4-12.4); Monocytes Absolute Auto 0.5 X10*3/uL (0.1-1.2); Monocytes Percent Auto 8.5 % (2-11); Neutrophils Absolute Auto 3.7 x10*3/uL (2.0-8.3); Neutrophils Percent Auto 66.2 % (45-73); Platelet Count 230 X10*3/uL (160-400); Red Blood Count 4.35 X10*6/uL (4.60-5.80); Red Cell Distribution Width 12.4 % (11.0-16.0); White Blood Count 5.5 X10*3/uL (4.8-10.8)
[2022-08-04 13:56] LABS: Anion Gap 14 (12-20); Blood Urea Nitrogen 8 mg/dL (9-16); Calcium 8.4 mg/dL (8.4-10.2); Carbon Dioxide 25 mmol/L (22-29); Chloride 104 mmol/L (96-108); Estimated Glomerular Filt Rate > 60; Glucose Random 142 mg/dL (60-115); Potassium 4.4 mmol/L (3.3-5.1); Sodium 139 mmol/L (135-145)
== END 2022-08-04 13:04 | disposition home or self-care (01) ==
LOC: HO.HVNA 13:03
PROVIDERS: Visit Provider Internal Medicine
DX: E11.51 Type 2 diabetes mellitus with diabetic peripheral angiopathy without gangrene (principal); Z45.2 Encounter for adjustment and management of vascular access device
CPT/HCPCS: 36415; 80048; 85025

== ENCOUNTER 2022-10-09 09:12 | Outpatient (REF) | payer OTHER, SELFPAY ==
[2022-10-09 10:17] LABS: Blood Urea Nitrogen 11 mg/dL (9-16); Estimated Glomerular Filt Rate > 60
== END 2022-10-09 09:13 | disposition home or self-care (01) ==
LOC: HO.LAB 09:12
PROVIDERS: PCP Family Medicine; Visit Provider Surgery
DX: E11.621 Type 2 diabetes mellitus with foot ulcer (principal)
CPT/HCPCS: 36415; 82565; 84520

== ENCOUNTER → 2022-10-11 08:02 | Outpatient (REF) | payer OTHER, SELFPAY ==
--- NOTE | 2022-10-11 | ECG_ITS ---
Test Reason : preop Blood Pressure : / mmHG Vent. Rate : 079 BPM Atrial Rate : 079 BPM P-R Int : 176 ms QRS Dur : 098 ms QT Int : 384 ms P-R-T Axes : 049 -11 -05 degrees QTc Int : 440 ms Normal sinus rhythm Inferior infarct (cited on or before 24-JUN-2022) Abnormal ECG When compared with ECG of 24-JUN-2022 19:21, No significant change was found Referred By: Lázaro Dubois Electronically Signed By:GERARD BORJAS MD
== END ==
LOC: HO.CARD 08:02
PROVIDERS: PCP Family Medicine; Visit Provider Family Medicine
DX: Z01.818 Encounter for other preprocedural examination (principal); E11.9 Type 2 diabetes mellitus without complications
CPT/HCPCS: 93005

== ENCOUNTER 2022-10-18 09:30 | Outpatient (REF) | payer OTHER, SELFPAY ==
--- NOTE | ~2022-10-18 | MR_ITS ---
EXAMINATION: MR FOOT WITHOUT AND WITH CONTRAST, LEFT CLINICAL INFORMATION: Nonhealing left great toe wound. Evaluate for osteomyelitis. COMPARISON: Multiple priors, most recent left foot MRI dated 07/21/2022. TECHNIQUE: Multisequence MR imaging of the left foot was obtained before and after the IV administration of 10 mL Gadavist contrast on a high-field strength scanner. FINDINGS: Soft tissue ulceration along the plantar/medial aspect of the 1st interphalangeal joint with adjacent skin thickening and postcontrast enhancement, consistent with acute cellulitis. There appears to be continuity with the interphalangeal joint surface without a definite abscess formation. Significantly increased T2 signal with decreased T1 signal and postcontrast marrow enhancement within the 1st proximal phalanx and 1st distal phalanx. A small interphalangeal joint effusion with synovial enhancement. Findings are consistent with septic arthritis and acute osteomyelitis. Articular cartilage thinning with small marginal osteophytes at the 1st metacarpophalangeal joint and hallux sesamoids. Marrow edema within the proximal diaphysis of the 3rd metatarsal as well as to a lesser degree within the 2nd metatarsal, consistent with stress reactions. No associated fracture line. Findings are new when compared to the prior examination. Atrophy and edema throughout the intrinsic musculature of the foot which can be seen in diabetic patients. No measurable tendon tear. Intact Lisfranc ligament. Dorsal subcutaneous edema without organized fluid collection or abscess formation. MR/MR foot LT wo/w con IMPRESSION: 1. Soft tissue ulceration along the plantar/medial aspect of the 1st interphalangeal joint with adjacent cellulitis. No abscess formation. Findings consistent with septic arthritis and acute osteomyelitis within the 1st proximal and distal phalanges. Findings are new when compared to the MRI dated 07/21/2022. 2. Stress reactions within the proximal diaphysis of the 3rd metatarsal as well as the 2nd metatarsal without associated fracture line. Findings are new when compared to the prior MRI. 3. Dorsal subcutaneous edema without organized fluid collection or abscess formation. 4. Atrophy and edema throughout the intrinsic musculature of the foot which can be seen in diabetic patients.
== END 2022-10-18 09:31 | disposition home or self-care (01) ==
LOC: HO.MRI 09:30
PROVIDERS: Visit Provider Podiatrist
DX: M86.9 Osteomyelitis, unspecified (principal)
CPT/HCPCS: 73720; A9585

== ENCOUNTER 2023-12-05 08:55 | Outpatient (REF) | payer OTHER, SELFPAY ==
[2023-12-05 09:12] LABS: MANUAL DIFF FLAG NO
[2023-12-05 09:36] LABS: Basophils Percent Auto 0.5 % (0-2); Eosinophils Absolute Auto 0.3 X10*3/uL (0.0-0.4); Eosinophils Percent Auto 4.4 % (0-4); Hematocrit 39.7 % (42.0-52.0); Hemoglobin 13.3 g/dl (14.0-18.0); Imm Gran Abs Auto 0.01 X10*3/uL (0.00-0.03); Imm Gran Pct Auto 0.2 % (0.0-0.4); Lymphocytes Absolute Auto 1.9 X10*3/uL (1.2-4.9); Lymphocytes Percent Auto 29.8 % (20-40); Mean Corpuscular HGB Conc 33.5 g/dl (31.0-36.0); Mean Corpuscular Volume 86.7 fL (80.0-98.0); Mean Platelet Volume 10.1 fL (9.4-12.4); Monocytes Absolute Auto 0.5 X10*3/uL (0.1-1.2); Monocytes Percent Auto 7.3 % (2-11); Neutrophils Absolute Auto 3.7 x10*3/uL (2.0-8.3); Neutrophils Percent Auto 57.8 % (45-73); Platelet Count 224 X10*3/uL (160-400); Red Blood Count 4.58 X10*6/uL (4.60-5.80); Red Cell Distribution Width 13.1 % (11.0-16.0); White Blood Count 6.3 X10*3/uL (4.8-10.8)
[2023-12-05 09:39] LABS: Estimated Average Glucose 169 mg/dL; Hemoglobin A1c % 7.5 % (<6.0)
[2023-12-05 09:58] LABS: Alanine Aminotransferase 13 U/L (0-40); Albumin Level 3.6 g/dL (3.5-5.0); Alkaline Phosphatase 69 U/L (39-117); Anion Gap 12 (12-20); Aspartate Amino Transferase 14 U/L (5-37); Bilirubin Total 0.5 mg/dL (0.0-1.0); Blood Urea Nitrogen 12 mg/dL (9-16); C Reactive Protein 0.55 mg/dL (< or = 0.50); Calcium 8.8 mg/dL (8.4-10.2); Carbon Dioxide 28 mmol/L (22-29); Chloride 106 mmol/L (96-108); Estimated Glomerular Filt Rate > 60; Glucose Fasting 95 mg/dL (60-99); Potassium 4.2 mmol/L (3.3-5.1); Sodium 142 mmol/L (135-145); Total Protein 6.8 g/dL (6.5-8.0)
[2023-12-05 11:21] LABS: Erythrocyte Sedimentation Rate 22 MM/HR (0-15)
[2023-12-05 11:25] LABS: Creatinine Urine 147.07 mg/dL; Microalbum/Creatinine Ratio Ur 6.7 ug/mg cr (<30)
== END 2023-12-05 08:56 | disposition home or self-care (01) ==
LOC: HO.LAB 08:55
PROVIDERS: PCP Family Medicine; Visit Provider Family Medicine
DX: R53.83 Other fatigue (principal); R42 Dizziness and giddiness
CPT/HCPCS: 36415; 80053; 82043; 82570; 83036; 85025; 85652; 86140

== ENCOUNTER 2025-03-14 11:17 | Outpatient (REF) | payer OTHER, SELFPAY ==
--- NOTE | ~2025-03-14 | US_ITS ---
EXAMINATION: US TRIPLEX LOWER EXTREMITY, LEFT CLINICAL INFORMATION: Left lower extremity edema COMPARISON: None available. TECHNIQUE: Color-flow triplex imaging with spectral analysis and compression Doppler were performed on the left lower extremity. FINDINGS: There is decreased respiratory variability of the venous waveform in the left common femoral vein relative to the right. Normal compression and augmented flow are noted throughout the left lower extremity. The visualized common femoral vein, superficial femoral vein, profunda femoral vein, popliteal vein and midcalf peroneal and posterior tibial venous segments show no evidence of deep venous thrombosis. Triphasic arterial flow was documented in the vessel in the region where the greater saphenous vein is anticipated. Normal architecture reniform shaped lymph nodes are imaged in the left groin. US/US venous duplex LE LT IMPRESSION: No evidence of deep venous thrombosis involving the left lower extremity. Decreased respiratory variability of the venous waveform in the left common femoral vein compared to the right can indicate reduced flow into pelvic veins. Consider CT venogram of the pelvis. There is high resistance arterialized flow in the medial left leg in the anticipated location of the greater saphenous vein in a patient with a history of a bypass surgery. Electronically signed by: Bryant Mills MD 03/14/2025 12:13 PM EDT
[2025-03-14 12:38] LABS: Estimated Average Glucose 180 mg/dL; Hemoglobin A1c % 7.9 % (<6.0)
--- OUTSIDE RECORDS SUMMARY | 2025-03-14 12:49 | XMS_ITS | Clinical Summary ---
Author Organization [facility] Address [address] [place] [address] Care Team Providers Care Coupler Name Role Phone Unavailable Primary Care Provider Unavailabl e Allergies No known active allergies Medications No known medications Active Problems No known active problems Social History Tobacco Use Types Packs/Day Years Used Date Smoking Tobacco: Never Assessed Sex and Gender Information Value Date Recorded Sex Assigned at Not on file Gender Identity Not on file Sexual Orientation Not on file Job Start Date Occupation Industry Not on file Not on file Not on file Last Filed Vital Signs Vital Sign Reading Time Taken Comments Blood Pressure - - Pulse 87 05/26/2021 4:54 PM EDT Temperature 36.4 C (97.6 F) 05/26/2021 4:54 PM EDT Respiratory Rate 16 05/26/2021 4:54 PM EDT Oxygen Saturation 98% 05/26/2021 4:54 PM EDT Inhaled Oxygen Concentration - - Weight - - Height - - Body Mass Index - - Plan of Treatment Health Maintenance Due Date Last Done Comments Hepatitis C Screening 1960 COVID-19 Vaccine (#1) 06/25/1963 Depression Screening 1974 Preventative Health Evaluation 1980 Colon Cancer Screening (Colonoscopy) 12/25/2007 Shingrix-Zoster Vaccine (1 o f 2) 2012 DTap / Tdap / Td (2 - Td or Tdap) 07/17/2017 07/17/2007 Influenza Vaccine (Season Ended) 2025 06/27/2009, 06/13/2008 RSV Adult > 60+ Yrs or (1 - 1-dose 75+ series) 2037 Pneumococcal Vaccine Aged Out 04/11/2007 No long er eligible based on patient's age to complete this topic Hepatitis B Vaccines Aged Out No long er eligible based on patient's age to complete this topic RSV Ped < 20 months Aged Out No longe r eligible based on patient's age to complete this topic
[2025-03-14 12:52] LABS: Alanine Aminotransferase 25 U/L (0-40); Anion Gap 12 (12-20); Aspartate Amino Transferase 30 U/L (5-37); Blood Urea Nitrogen 13 mg/dL (9-16); Carbon Dioxide 28 mmol/L (22-29); Chloride 105 mmol/L (96-108); Cholesterol 119 mg/dL (<200); Estimated Glomerular Filt Rate > 60; Glucose Fasting 226 mg/dL (60-99); HDL Cholesterol 39 mg/dL (>40); LDL Cholesterol Calculated 63 mg/dL (<100); Potassium 4.6 mmol/L (3.3-5.1); Sodium 140 mmol/L (135-145); Triglycerides 87 mg/dL (<150)
== END 2025-03-14 11:18 | disposition home or self-care (01) ==
LOC: HO.US 11:17
PROVIDERS: PCP Family Medicine; Visit Provider Family Medicine
DX: M79.605 Pain in left leg (principal); R60.0 Localized edema; I10 Essential (primary) hypertension; E78.00 Pure hypercholesterolemia, unspecified; E11.9 Type 2 diabetes mellitus without complications; Z79.899 Other long term (current) drug therapy
CPT/HCPCS: 36415; 80051; 80061; 82550; 82565; 82947; 83036; 84450; 84460; 84520; 93971

== ENCOUNTER → 2025-03-14 11:40 | Outpatient (BNV) | payer OTHER, SELFPAY | PROVIDERS: PCP Family Medicine; Visit Provider Radiology Diagnostic Radiology | DX: R22.42 Localized swelling, mass and lump, left lower limb (principal) | CPT/HCPCS: 93971 ==

== ENCOUNTER 2025-04-19 09:53 | Outpatient (AMB) | payer SELFPAY ==
--- NOTE | 2025-04-19 09:54 | MHC.PC.OV ---
Vital Signs 04/19/25 09:57 04/19/25 10:01 Height 5 ft 11 in Weight 293 lb BMI 40.9 BP 150/78 H Blood Pressure Location Rt brachial Position Sitting Respiration 18 Pulse 83 Pulse Source Pulse Oximeter Temp 97.3 F Temp Source Temporal Artery Scan Pulse Oximetry (%) 96 Oxygen Delivery Method Room Air Intake Visit Reasons: 1 MO F/UP-MEI PT-NEEDS DR [place]ORD-COMPLICATED Retail Client Manager Required: No Accompanied by: Self / Same As Patient Allergies meperidine (From DEMEROL) Allergy (Intermediate, Verified 04/19/25 09:55) BECAME VIOLENT Tobacco use date assessed: 04/19/25 HPI HPI Comments History of Present Illness Details The patient is a 64 year old male with a past medical history of IDDM, PVD, hypertension, OA-knee, BPH presenting to [facility]. Previous Dr Dubois patient DM: On toujeo 56 units, aspart 15 units TID cc, mounjaro 5mg. Dexcom. On lyrica 200mg TID. A1C 02/2025 7.9. Follows with [facility] Endocrinology Dr Tamayo left -7.6% this month. Took off ozempic. Previously on Victoza. Follows with vascular-saw Dr Baker. Eye exam within the next month-Dr Kay. Has LE swelling, left over right. Recent u/s negative for DVT. He plans to follow up with vascular for further testing. CV: htn, hld, D. on norvasc, atorvastatin. BH: Depression. on elavil. Was on citalopram Colonoscopy 01/2021-5 year recall per patient ROS see HPI PHYSICAL EXAM: GENERAL: Alert and oriented x 3. NAD EYES: EOMI. Anicteric. HENT: Moist mucous membranes. No scleral icterus. No cervical lymphadenopathy. LUNGS: Clear to auscultation bilaterally. CARDIOVASCULAR: Regular rate and rhythm. No murmur. No JVD. ABDOMEN: Soft, non-tender +bs EXTREMITIES: trace right pitting edema, 1+ pitting edema. Left leg significantly large circumference. No warmth or tenderness. SKIN: No rashes or lesions. Warm. NEUROLOGIC: No focal neurological deficits. CN II-XII grossly intact PSYCHIATRIC: Cooperative. 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 care (current) use of insulin Vitamin D deficiency Diabetes type 2, uncontrolled Surgical History (Updated 04/19/25 @ 10:36 by Fabiola Clifford MD) Hx of vein stripping History of uvulopalatopharyngoplasty Hx of appendectomy Family History Father Diabetes mellitus HTN (hypertension) Mother Lung disease Social History Household Members: Family Household Members Other:: and son Do you presently have visiting nurse or other home services: No Alcohol intake: current Alcohol intake frequency: does not drink Patient Tobacco Use Status: Former Tobacco user Tobacco use type: Cigarette Cigarette Packs Per Day: 1 Years Smoked: 30 e-Cigarette/Vaping Use: Never Used service: Yes Current occupational status: employed Physical exam (Primary Care) Vital Signs: Last Vital Signs Temp 97.3 F 04/19/25 10:01 Pulse 83 04/19/25 10:01 Resp 18 04/19/25 10:01 BP 150/78 H 04/19/25 10:01 Pulse Ox 96 04/19/25 10:01 Oxygen Delivery Method Room Air 04/19/25 10:01 BMI result Body Mass Index 40.9 Tobacco/Smoking Status: Tobacco use Status Tobacco use date assessed 04/19/25 04/19/25 10:03 Patient Tobacco Use Status Former Tobacco user 04/19/25 10:03 Tobacco use type Cigarette 04/19/25 10:03 e-Cigarette/Vaping Use Never Used 04/19/25 10:03 Coding Level of Care Code New Pt Level 4 (04126) Complex EM visit Add On G2211 Diagnoses Diabetic nephropathy associated with type 2 diabetes mellitus E11.21 Dyslipidemia E78.5 Obesity (BMI 30-39.9) E66.9 Leg swelling M79.89 Assessment & Plan Assessment & Plan (1) Diabetic nephropathy associated with type 2 diabetes mellitus: Code(s): E11.21 - Type 2 diabetes mellitus with diabetic nephropathy Category: Medical (2) Dyslipidemia: Code(s): E78.5 - Hyperlipidemia, unspecified Category: Medical (3) Obesity (BMI 30-39.9): Code(s): E66.9 - Obesity, unspecified Category: Medical (4) Leg swelling: Code(s): M79.89 - Other specified soft tissue disorders Category: Medical Plan 64 yo to establish care past medical, surgical, social reviewed DM-slightly suboptimal control. Increase mounjaro to 10mg daily HTN-elevated BP. Stop norvasc. Start chlorthalidone which should help with swelling Vascular folow up Orders: Orders Lyme IgG/IgM w/reflex to WB Today M79.89 - Other specified soft tissue disorders Medications: New Mounjaro (tirzepatide) 10 mg (0.5 mL) subcut QWEEK 6 mL 3RF NS E11.21 - Type 2 diabetes mellitus with diabetic nephropathy chlorthalidone 25 mg PO DAILY 90 tabs 3RF Discontinued flash glucose sensor (FreeStyle Hema 2 Sensor kit) Discontinued Reason: Doctor's Order As directed every 2 weeks 2 ea 11RF amlodipine Discontinued Reason: Doctor's Order 2.5 mg PO DAILY 90 days 90 tabs 1RF I10 - Essential (primary) hypertension
[2025-04-19 09:57] VITALS: BMI 40.9
[2025-04-19 10:01] VITALS: BP 150/78; PULSE 83; RESP 18; TEMP 36.3; O2SAT 96
--- OUTSIDE RECORDS SUMMARY | 2025-04-19 10:09 | XMS_ITS | Clinical Summary ---
Author Organization [facility] it Address [address] [place] [address] Care Team Providers Care Fur Blowing Machine Attendant Name Role Phone Lázaro Dubois MD Primary Care Provider [phone] Surgical History Surgery Date Site/Laterality Comments APPENDECTOMY PROCEDURE: HISTORICAL APPENDECTOMY NOSE SURGERY PROCEDURE: NC UNLISTED PROCEDURE NOSE; COMMENT: repair deviated septum Medical History Medical History Date Comments Type II or unspecified type diabetes mellitus with unspecified complication, not stated as uncontrolled DX:Type II or unspecified ty pe diabetes mellitus with unspecified complication, not stated as uncontrolled Scarlet fever DX:Scarlet fever Pure hypercholesterolemia 02/22/2006 DX:Pur e hypercholesterolemia Tobacco use disorder DX:Tobacco use disorder Proteinuria 12/17/2008 DX:Proteinuria Family History Medical History Relation Name Comments Diabetes Father Other cancer Paternal Grandfather Relation Name Status Comments Father Paternal Grandfather Social History Tobacco Use Types Packs/Day Years Used Date Smoking Tobacco: Every Day Cigarettes Alcohol Use Standard Drinks/Week Comments Not Asked 0 (1 standard drink = 0.6 oz pur e alcohol) Sex and Gender Information Value Date Recorded Sex Assigned at Not on file Legal Sex Male 3:04 PM EST Gender Identity Not on file Sexual Orientation Not on file Obstetrics History Plan of Treatment Health Maintenance Due Date Last Done Comments Pneumococcal Vaccine: 50+ Years (2 of 2 - PCV) 2012 04/11/2007 Zoster Vaccines (1 of 2) 2012 DTaP,Tdap,and Td Vaccines (2 - Td or Tdap) 07/17/2017 07/17/2007 COVID-19 Vaccine ( - 2023-2 5 season) 2024 Depression Screening 09/26/2024 Influenza Vaccine (#1) 2025 9, 06/13/2008 RSV Immunization Adult Patients (1 - 1-dose 75+ series) 2037 HIB Vaccines Aged Out No longer eligi ble based on patient's age to complete this topic HPV Vaccines Aged Out No longer eligi ble based on patient's age to complete this topic Hepatitis A Vaccines Aged Out No long er eligible based on patient's age to complete this topic Hepatitis B Vaccines Aged Out No long er eligible based on patient's age to complete this topic IPV Vaccines Aged Out No longer eligi ble based on patient's age to complete this topic MMR Vaccines Aged Out No longer eligi ble based on patient's age to complete this topic Meningococcal ACWY Vaccine Aged Out N o longer eligible based on patient's age to complete this topic Meningococcal B Vaccine Aged Out No l onger eligible based on patient's age to complete this topic RSV Immunization Patients Under 20 months Aged Out No longer eligible b ased on patient's age to complete this topic Varicella Vaccines Aged Out No longer eligible based on patient's age to complete this topic Care Teams Fur Blowing Machine Attendant Relationship Specialty Start Date End Date Lázaro Dubois MD [address] [place] [address] [place], [place] [address] PCP - General 12/12/17
--- OUTSIDE RECORDS SUMMARY | 2025-04-19 10:09 | XMS_ITS | Patient Health Record ---
Author Organization [facility] Address [address] [facility] [address] Care Team Providers Care Leaflet Or Newspaper Deliverer Name Role Phone Lázaro Dubois MD Primary Care Provider UnavailArmida Farrell Unavailable [phone] Allergies Allergen (clinical drug ingredient) Drug/Non Drug Allergy documented on EMR Reaction Allergy Type Onset Date Status meperidine Demerol get violent Drug Allergy Acti ve Reason For Referral No Information Medications Medication SIG (Take, Route, Frequency, Duration) Notes Start Date End Date Status Augmentin 500-125 MG 1 tablet Orally chandler ry 8 hrs; Duration: 7 day(s) 03/22/2022 Not-Taki ng Keflex 500 MG 1 capsule Orally chandler ry 12 hrs; Duration: 7 days 03/16/2022 Not-Broderick ing Ozempic Active Extra Depth Orthopedic Shoes (1 Pair) with Customized Heat Molded Multidensity Innersoles (3 Pair) as directed Dx: IDDM/Polyneuropathy (E10.42), Hammertoe Foot Deformity (M20.41,M20.42), Preulcerative Skin Lesion(s) (L85.1) 08/25/2022 Not-Taking eliquis Active Bactrim DS 800-160 MG 1 tablet Orally Tw ice a day; Duration: 7 days 03/22/2022 Not-Taking NovoLOG 100 UNIT/ML as directed Injection Active Amoxicillin-Pot Clavulanate 875-125 MG 1 tablet Orally every 12 hrs; Duration: 10 day(s) 09/23/2022 Not-Broderick ing Omeprazole 20 MG 1 capsule 30 minutes before morning meal Orally Once a day; Duration: 30 day(s) Active Cipro 500 MG 1 tablet Orally ever y 12 hrs; Duration: 10 day(s) 09/15/2022 Not-Broderick ing HumaLOG Active Augmentin 500-125 MG 1 tablet Orally Twi ce a day; Duration: 14 days 10/13/2022 Not-Takin g amLODIPine Besylate 10 MG 1 tablet Orally Once a day Active traMADol HCl 50 MG 1 tablet as needed Orally Every 4-6 hours as needed for pain; Duration: 14 days 10/06/2022 Not-Taking Toujeo SoloStar Acti ve metFORMIN HCl 1000 MG 1 tablet with meal s Orally Twice a day Not-Taking Lyrica Active Metoprolol Succinate ER 50 MG 1 tablet Orally Once a day Not-Taking Mupirocin 2 % 1 application Printing Supplies Sales Representative ally Once a day to wound; Duration: 30 days 01/09/2024 Active Atorvastatin Calcium Active Augmentin Not-Taking Extra Depth Orthopedic Shoes (1 Pair) with Customized Heat Molded Multidensity Innersoles (3 Pair) as directed Dx: IDDM/Polyneuropathy (E10.42), Hammertoe Foot Deformity (M20.41,M20.42), Preulcerative Skin Lesion(s) (L85.1) 09/13/2017 Not-Taking Doxycycline Not-Taki ng Extra Depth Orthopedic Shoes (1 Pair) with Customized Heat Molded Multidensity Innersoles (3 Pair) as directed Dx: IDDM/Polyneuropathy (E10.42), Hammertoe Foot Deformity (M20.41,M20.42), Preulcerative Skin Lesion(s) (L85.1) 01/06/2023 Not-Taking Extra Depth Orthopedic Shoes (1 Pair) with Customized Heat Molded Multidensity Innersoles (3 Pair) as directed Dx: IDDM/Polyneuropathy (E10.42), Hammertoe Foot Deformity (M20.41,M20.42), Preulcerative Skin Lesion(s) (L85.1) 05/31/2018 Not-Taking Doxycycline Hyclate 100 MG 1 capsule Orally Twice a day; Duration: 14 days 10/13/2022 Not-Takin g Work Note . . . Patient cleared to return to work on 01/17/23 without restrictions 01/06/2023 Not-Taking HYDROcodone-Acetaminophe n 5-325 MG 1 tablet as needed Orally every 4-6 hrs. Patient can half fill RX; Duration: 10 days Not-Taking oxyCODONE HCl 5 MG 1-2 tablet as needed Orally every 4-6 hrs as needed for pain; Duration: 10 days 11/15/2022 Not-Taking Gabapentin 600 MG 1 tablet Orally Once a day Not-Taking Keflex 500 MG 1 capsule Orally chandler ry 12 hrs; Duration: 10 days 02/09/2022 Not-Taking Trulicity Not-Taking Lantus Not-Taking Immunizations Vaccine Route Administration Date Status Comme nts Influenza Unknown 09/13/2017 Refused Influenza Unknown 06/02/2023 Administered Social History Tobacco Use: Social History Observation Description Date Details (start date - stop date) Former Smoker NA - NA Tobacco Use/Smoking Question Answer Notes Are you a: former smoker Additional Findings: Tobacco User Moderate cigar ette smoker (10-19 cigs/day) Alcohol Screen Question Answer Notes Did you have a drink containing alcohol in the p ast year? No Points 0 Interpretation Negative Tobacco use other than smoking: Question Answer Notes Are you an other tobacco user? No Problems Problem Type SNOMED Code ICD Code Onset Dates Problem Status W/U Status Risk Notes Problem Acquired hammer toe of right foot (3998878990109603 ) Other hammer toe(s) (acquired), right foot (M20.41) Active confirmed Problem Acquired hammer toe of left foot (1600691176403059 ) Other hammer toe(s) (acquired), left foot (M20.42) Active confirmed Problem Polyneuropathy due to diabetes mellitus type I (277420473) Type 1 diabetes mellitus with diabetic polyneuropathy (E10.42) Active confirmed Problem Bilateral atherosclerosis of arteries of lower limbs (disorder) (4700169751114769 7) Unspecified atherosclerosis of [place] arteries of extremities, bilateral legs (I70.203) Active confirmed Problem Acute osteomyelitis of ankle and/or foot (183497917) Osteomyelitis of foot, left, acute (M86.172) Active confirmed Problem Polyneuropathy due to diabetes mellitus type I (314260589) Type 1 diabetes mellitus with polyneuropathy (E10.42) Active confirmed Problem Localized, primary osteoarthritis of the ankle and/or foot (441564035) Osteoarthritis of right ankle and foot (M19.071) Active confirmed Problem Accessory bone of foot (5362748828) Accessory bone of foot (Q74.2) Active confirmed Problem Foot ulcer due to type 1 diabetes mellitus (058813024404446) Type 1 diabetes mellitus with foot ulcer (E10.621) Active confirmed Problem Foot ulcer due to type 2 diabetes mellitus (6593780199479) Type 2 diabetes mellitus with foot ulcer (E11.621) Active confirmed Problem Localized, primary osteoarthritis of the ankle and/or foot (990979613) Osteoarthritis of left ankle and foot (M19.072) Active confirmed Problem Non-pressure ulcer of right lower extremity with fat layer exposed (L97.912) Active confirmed Problem Pain at rest of bilateral lower limbs due to atherosclerosis (disorder) (7374359911639618 3) Atherosclerosis of [place] artery of both legs with rest pain (I70.223) Active confirmed Problem Peripheral vascular disease (816461737) Claudication of right lower extremity (I73.9) Active confirmed Problem Neuropathic ulcer of right foot (disorder) (8801429423875567 2) Neuropathic ulcer of right foot, limited to breakdown of skin (L97.511) Active confirmed Response to treatment- improved Vital Signs Height 5ft 11in in 05/03/2024 Weight 250 lbs 05/03/2024 BMI 34.86 kg/m2 05/03/2024 Encounters Encounter [facility] Date [facility] [address] 05/03/2024 Armida Hill Type 1 diabetes yosi itus with polyneuropathy E10.42 ; Unspecified atherosclerosis of [place] arteries of extremities, bilateral legs I70.203 and Tinea unguium B35.[address] [address] 07/12/2024 Armida Hill Assessments Encounter Date Diagnosis (ICD Code) Assessment Notes Treatment Notes Treatment Clinical Notes Section Notes 05/03/2024 Unspecified atherosclerosis of [place] arteries of extremities, bilateral legs (ICD-10 - I70.203) 05/03/2024 Type 1 diabetes mellitus with polyneuropathy (ICD-10 - E10.42) 05/03/2024 Tinea unguium (ICD-10 - B35.1) Plan Of Treatment Pending Test Test Name Order Date MRI : Foot, left 10/13/2022 X ray : Foot, left 3V 10/19/2022 X ray : Foot, left 3V 11/12/2022 X ray : Foot, left 3V 11/18/2022 X ray : Foot, left 3V 11/30/2022 X ray : Foot, left 3V 12/06/2022 X ray : Foot, left 3V 12/20/2022 X ray : Foot, left 3V 01/06/2023 X ray : Foot, left 3V 04/21/2023 X ray : Foot, left 3V 09/01/2022 X ray : Foot, left 3V 10/05/2022 X ray : Foot, left 3V 10/13/2022 X ray : Foot, right 3V 02/09/2022 X ray : Foot, right 3V 10/05/2022 X ray : Foot, right 3V 11/17/2023 X ray : Foot, right 3V 01/05/2024 [id number] NAIL, 6 OR MORE 05/31/2018 [id number] SKIN LESIONS, 2 TO 4 05/31/20 18 Insurance Providers Payer Name Payer Address Payer Phone Subscriber Number Group Number Insured Name Patient Relationship to Insured Coverage Start Date Coverage End Date Cigna [address] Rafaela jeffery, [place]AR[place] [id number] Fortino Cameron Self - patient is the insured Medical (General) History Medical History History ICD Code High blood pressure Diabetic Measles Mumps Chicken pox Anxiety Scarlet fever Stroke Poor circulation Surgical History Surgery Date(Month/Year) appendectomy 1987 stent in right leg 04/2018 vascular bypass 11/02/2022 Amputation left 2nd toe 05/02/23 Hospitalization History Reason Date(Month/Year) [facility] stomach virus 09/2023 [facility]- 3 day stay, inf toe 04/21/23
--- OUTSIDE RECORDS SUMMARY | 2025-04-19 10:09 | XMS_ITS | Clinical Summary ---
Author Organization [facility] Address [address] [place] [address] Care Team Providers Care Retail Sales Manager Name Role Phone Unavailable Primary Care Provider [...] Td or Tdap) 07/17/2017 07/17/2007 Influenza Vaccine (#1) 2025 9, 06/13/2008 RSV Adult > 60+ Yrs or [...]
--- OUTSIDE RECORDS SUMMARY | 2025-04-19 10:09 | XMS_ITS | Clinical Summary ---
Author Organization [facility] Address [address] [place] [address] Care Team Providers Care Legal Billing Specialist Name Role Phone Unavailable Primary Care Provider Unavailabl e Social History Tobacco Use Types Packs/Day Years Used Date Smoking Tobacco: Never Assessed Sex and Gender Information Value Date Recorded Sex Assigned at Not on file Legal Sex Male 7:11 PM EDT Gender Identity Not on file Sexual Orientation Not on file Plan of Treatment Health Maintenance Due Date Last Done Comments Hepatitis C Virus Screening 1960 HIV Screening 12/25/1975 DTaP/Tdap/Td Vaccines (1 - Tdap) 1981 Pneumococcal Vaccines 50+ (1 of 1 - PCV) 2012 Zoster (Shingles) Vaccine (1 of 2) 2012 COVID-19 Vaccine ( - 2023-2 5 season) 2024 RSV Vaccine 60 years and old er and Patients (1 - 1-dose 75+ series) 2037 Hepatitis B Vaccines Aged Out No long er eligible based on patient's age to complete this topic
== END 2025-04-19 10:37 | disposition home or self-care (01) ==
LOC: HO.HMCHD 09:54
PROVIDERS: PCP Family Medicine; Visit Provider Internal Medicine
DX: E11.21 Type 2 diabetes mellitus with diabetic nephropathy (principal); E78.5 Hyperlipidemia, unspecified; E66.9 Obesity, unspecified; M79.89 Other specified soft tissue disorders

== ENCOUNTER → 2025-04-19 09:53 | Outpatient (BNVA) | payer SELFPAY | PROVIDERS: PCP Family Medicine; Visit Provider Internal Medicine | DX: Z76.89 Persons encountering health services in other specified circumstances (principal); E11.21 Type 2 diabetes mellitus with diabetic nephropathy; E78.5 Hyperlipidemia, unspecified; E66.9 Obesity, unspecified; Z68.41 Body mass index [BMI] 40.0-44.9, adult; M79.89 Other specified soft tissue disorders; F32.A Depression, unspecified; I10 Essential (primary) hypertension; Z79.4 Long term (current) use of insulin; Z79.85 Long-term (current) use of injectable non-insulin antidiabetic drugs; Z79.899 Other long term (current) drug therapy | CPT/HCPCS: 99202 ==

== ENCOUNTER 2025-06-17 10:32 | Outpatient (AMB) | payer OTHER, SELFPAY ==
--- NOTE | 2025-06-17 10:36 | MHC.PC.OV ---
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 Automatic Required: No Accompanied by: Self / Same As Patient Allergies meperidine (From DEMEROL) Allergy (Intermediate, Verified 06/17/25 10:37) BECAME VIOLENT Tobacco use date assessed: 04/19/25 Dental Screening Dental Screen Date: 06/17/25 Did you have a dental visit in the last 12 months?: Yes Did you have a dental problem in the last 6 months where you did not have access to dental care?: No Was dental information given to patient?: Patient has dentist HPI HPI Comments History of Present Illness Details The patient is a 64-year-old male presenting with peripheral edema and uncontrolled Diabetes Mellitus Type 2. The patient reports swelling primarily in the left leg, with the affected leg appearing larger than the right. The swelling has been associated with a history of a vein removal procedure in the left leg. The patient attributes the swelling to discontinuation of the anticoagulant Eliquis in November, following the procedure. No blood clots have been detected in recent investigations. The patient describes fatigue and low energy levels but denies feelings of depression. Regarding his diabetes management, the patient has experienced fluctuating blood glucose levels, ranging from 41 mg/dL to over 300 mg/dL. Nocturnal hypoglycemia has occurred as low as 46 mg/dL. The patient follows an insulin regimen but reports difficulty achieving stable blood glucose control. The patient's sleep apnea involves loud snoring and daytime fatigue, but he remains skeptical about the utility of CPAP or BiPAP devices, having tried and rejected them in the past. Medical History: - Peripheral Edema - Sleep Apnea - Hypertension - Hyperlipidemia - Diabetes Mellitus Type 2 - Peripheral Neuropathy Surgical History: - Vein Stripping in Left Leg Medications: - Amlodipine 2.5 mg for Hypertension - Atorvastatin 20 mg for Hyperlipidemia - Novolog (Insulin) with meals for Diabetes Mellitus Type 2 - Glargine (Trejero) 56 units in the morning for Diabetes Mellitus Type 2 - Mounjaro 10 mg once a week - Pregabalin 200 mg for Peripheral Neuropathy - Amitriptyline for Nerve Pain - Plavix (Dosage not specified) Diagnostic Results: - Blood clot analysis: No clots detected in recent investigations - Blood glucose monitoring reports variable levels ranging from 41 to 320 mg/dL Social: - 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 [employer] - Describes a busy lifestyle including frequent travel and activity - Reports swimming regularly as part of routine exercise [facility] Medical History (Updated 06/17/25 @ 11:10 by Levy Johnson MD) Diabetic neuropathy PVD (peripheral vascular disease) Hypertension Diabetes Leg swelling Pre-op evaluation Tubular adenoma Positive colorectal cancer screening using Cologuard test Diabetic nephropathy associated with type 2 diabetes mellitus Pulmonary nodules History of stroke Osteoarthritis Obesity (BMI 30-39.9) Dyslipidemia 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 of both eyes Diabetic polyneuropathy associated with type 2 diabetes mellitus shelter (current) use of insulin Vitamin D deficiency Diabetes type 2, uncontrolled Surgical History (Updated 04/19/25 @ 10:36 by Fabiola Clifford MD) Hx of vein stripping History of uvulopalatopharyngoplasty Hx of appendectomy Family History Father Diabetes mellitus HTN (hypertension) Mother Lung disease Social History Household Members: Family Household Members Other:: and son Housing: House Do you presently have visiting nurse or other home services: No Alcohol intake: current Alcohol intake frequency: does not drink Patient Tobacco Use Status: Former Tobacco user Tobacco use type: Cigarette Cigarette Packs Per Day: 1 Years Smoked: 30 Packs Per Year: 30 e-Cigarette/Vaping Use: Never Used service: Yes Current occupational status: employed Current occupation: [employer] Questionnaire AUDIT C Alcohol Use Questionnaire (AUDIT-C) 1. How often do you have a drink containing alcohol?: Never 3. How often do you have six or more drinks on one occasion?: Never Total Score: 0 Review of Systems Const Details: - Cardiovascular: Reports swelling in left leg - Respiratory: Denies shortness of breath at night, reports snoring - Neurological: Reports fatigue but denies depression - Gastrointestinal: Denies nausea, vomiting, or diarrhea - Endocrine: Reports uncontrolled blood glucose levels All systems reviewed & are unremarkable except as reviewed in HPI and above Physical exam (Primary Care) Vital Signs: Last Vital Signs Temp 97.7 F 06/17/25 10:42 Pulse 81 06/17/25 10:42 Resp 18 06/17/25 10:42 BP 130/68 06/17/25 10:42 Pulse Ox 95 06/17/25 10:42 Oxygen Delivery Method Room Air 06/17/25 10:42 BMI result Body Mass Index 39.5 Tobacco/Smoking Status: Tobacco use Status Tobacco use date assessed 04/19/25 06/17/25 10:37 Patient Tobacco Use Status Former Tobacco user 06/17/25 10:37 Tobacco use type Cigarette 06/17/25 10:37 e-Cigarette/Vaping Use Never Used 06/17/25 10:37 Const Other: General: Alert and oriented, Well nourished, No acute distress. Eye: Pupils are equal, round and reactive to light, Intact accommodation, Extraocular movements are intact, Normal conjunctiva, Vision unchanged. HENT: Normocephalic, Atraumatic, Tympanic membranes are clear, Normal hearing, Oral mucosa is moist, No pharyngeal erythema, Ear canals patent. Respiratory: Lungs CTA bilaterally, No wheeze, Respirations are non-labored. Cardiovascular: Regular rate, Regular rhythm, S1 auscultated, S2 auscultated, No murmur, Good pulses equal in all extremities, Normal peripheral perfusion, No edema. Gastrointestinal: Soft, Non-tender, Non-distended, Normal bowel sounds, No organomegaly. Musculoskeletal: Normal range of motion, Normal strength, No tenderness, No swelling, No deformity, Normal gait. Integumentary: Warm, Dry, Brewer, Intact. Neurologic: Alert, Oriented, Normal sensory, Normal motor function, No focal defects, Cranial Nerves II-XII are grossly intact, Normal deep tendon reflexes. Psychiatric: Cooperative, Appropriate mood & affect, Normal judgment. Coding Level of Care Code Est Pt Level 4 (19890) Complex EM visit Add On G2211 Diagnoses Pre-op evaluation Z01.818 Leg swelling M79.89 Dyslipidemia E78.5 Type 2 diabetes mellitus with hyperglycemia, with long-term current use of insulin E11.65; Z79.4 Diabetes mellitus complication status: with hyperglycemia Diabetes mellitus medical terminologist insulin use: with intermediate use Diabetes mellitus type: type 2 Essential hypertension I10 Hypertension type: essential hypertension PVD (peripheral vascular disease) I73.9 Diabetic polyneuropathy associated with type 2 diabetes mellitus E11.42 Diabetes mellitus complication detail: diabetic polyneuropathy Diabetes mellitus type: type 2 Assessment & Plan Assessment & Plan (1) Pre-op evaluation: Comment: This is a 64-year-old male with peripheral vascular disease, insulin-dependent diabetes (A1c 7.9), hypertension, and hyperlipidemia scheduled for diagnostic lower extremity angiography with possible intervention. Using the Revised Cardiac Risk Index (RCRI), the score is 2 (vascular procedure + insulin use), corresponding to an estimated ~10% risk of major adverse cardiac events johnathon-procedurally, placing him in the intermediate-risk category. He also carries moderate bleeding risk due to arterial access and antithrombotic therapy, with low renal risk given normal kidney function though contrast exposure requires monitoring. His comorbid diabetes and peripheral vascular disease additionally predispose to impaired wound healing and infection at the access site. Code(s): Z01.818 - Encounter for other preprocedural examination Category: Medical Plan: Requested the patient to contact vascular service today at [facility] in order to determine if he needs to remain on Plavix prior to procedure given they have asked him to continue medication indefinately and their note mentions the same with no comments on holding medication. (2) Leg swelling: Comment: - Reassess the need for anticoagulant therapy and leg elevation as an intervention. - Discussed compression stockings; benefits outweigh discomfort for this patient. Code(s): M79.89 - Other specified soft tissue disorders Category: Medical (3) Dyslipidemia: Comment: - Continue atorvastatin. Code(s): E78.5 - Hyperlipidemia, unspecified Category: Medical (4) Diabetes: Comment: - Recommend adjustment of insulin therapy to stabilize glucose levels. - Follow up with an induction machine setter, Desmond Tamayo, suggested setting appointment discussions. - Review hypoglycemia protocols for nocturnal episodes under 46 mg/dL. 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 Code(s): E11.40 - Type 2 diabetes mellitus with diabetic neuropathy, unspecified Category: Medical Qualifiers: Diabetes mellitus complication detail: diabetic polyneuropathy Diabetes mellitus type: type 2 Qualified Code(s): E11.42 - Type 2 diabetes mellitus with diabetic polyneuropathy Plan During the consultation, we discussed the probable causes of the patient's left leg swelling, ruling out recent blood clots. I advised raising the limb for alleviation, considering a possible vascular insufficiency. I highlighted concerns on his unmanaged blood glucose levels, suggesting a referral to induction machine setter Dr. Desmond Tamayo for review and adjustment of current insulin regimen. We reviewed potential implications of not discontinuing Plavix before the planned angiogram and emphasized coordinating with his vascular specialist. The patient was reminded about adherence to diabetes and hypertension medications to manage conditions effectively. Patient Instructions: - Call vascular specialist to confirm Plavix management before the procedure. - Elevate swollen leg when resting. - Use compression stockings as needed. - Liaise with induction machine setter regarding blood glucose management. - Continue prescribed medications as directed. - Attend follow-up visit in a month for reassessment.
[2025-06-17 10:42] VITALS: BP 130/68; PULSE 81; RESP 18; TEMP 36.5; O2SAT 95; BMI 39.5
--- OUTSIDE RECORDS SUMMARY | 2025-06-17 12:56 | XMS_ITS | Clinical Summary ---
[facility] Organization [facility] Address [address] [place] [address] Care Team Providers Care Counter Stacker Name Role Phone Unavailable Primary Care Provider [...]
--- OUTSIDE RECORDS SUMMARY | 2025-06-17 12:56 | XMS_ITS | Clinical Summary ---
Author Organization [facility] it Address [address] [place] [address] Care Team Providers Care Digital Media Intern Name Role Phone Lázaro Dubois MD Primary Care Provider [phone] Surgical History Surgery Date Site/Laterality Comments APPENDECTOMY PROCEDURE: HISTORICAL APPENDECTOMY NOSE SURGERY PROCEDURE: MO UNLISTED PROCEDURE NOSE; COMMENT: repair deviated septum [...] (2 - Td or Tdap) 07/17/2017 07/17/2007 Depression Screening 09/26/2024 COVID-19 Vaccine (1 - 2023-2 5 season) 2025 Influenza Vaccine (#1) 2025 9, 06/13/2008 RSV [...] age to complete this topic Care Teams Digital Media Intern Relationship Specialty Start Date End Date Lázaro Dubois MD [address] [place] [address] Dr [place], [place] [address] PCP - General 12/12/17
== END 2025-06-17 11:12 | disposition home or self-care (01) ==
PROVIDERS: PCP Student in an Organized Health Care Education/Training Program; Visit Provider Student in an Organized Health Care Education/Training Program
DX: Z01.818 Encounter for other preprocedural examination (principal); M79.89 Other specified soft tissue disorders; E78.5 Hyperlipidemia, unspecified; E11.65 Type 2 diabetes mellitus with hyperglycemia; Z79.4 Long term (current) use of insulin; I10 Essential (primary) hypertension; I73.9 Peripheral vascular disease, unspecified; E11.42 Type 2 diabetes mellitus with diabetic polyneuropathy

== ENCOUNTER 2025-07-23 08:30 | Outpatient (AMB) | payer OTHER, SELFPAY ==
--- OUTSIDE RECORDS SUMMARY | 2024-03-15 06:00 | XMS_ITS ---
Author Organization [facility] Address [address] [facility] [place] [address] Care Team Providers Care Medical Care Manager Name Role Phone Silvino SNOW, Lázaro Primary Care Provider Unavailab Armida Silva Unavailable [phone] REASON FOR VISIT seen on 02/23/2024 Encounters Encounter Location Date Provider Diagnosis [address] [address] 03/15/2024 Armida Hill Plan Of Treatment Next Appt Details Provider Name:Armida livingston, 08/19/2025 10:00:00 AM, [address] [place] [address], [phone], Progress Notes * Fortino CAMERON DDOB:1960 (64 yo M)Acc No.[id number]:03/15/2024 Progress Note Patient: Fortino WALSH Provider: Gerardo Hill DPM :1960 A ge:63 Y S ex:Male Date:03/15/2024 Address:[address], [place] Pcp:Lázaro Dubois MD Subjective: * Chief Complaints: [...] DPM Date: 0 03/15/2024 Generated for Didier Fuentes on: 1 09:13 AM EDT
--- OUTSIDE RECORDS SUMMARY | 2024-07-12 06:00 | XMS_ITS ---
Author Organization [facility] Address [address] [facility] [place] [address] Care Team Providers Care Electronic Data Processing Auditor Name Role Phone Silvino SNOW, Lázaro Primary Care Provider Unavailab Armida Silva Unavailable [phone] Encounters Encounter Location Date Provider Diagnosis [address] [address] 07/12/2024 Armida Hill Plan Of Treatment Next Appt Details Provider Name:Armida livingston, 08/19/2025 10:00:00 AM, [address] [place] [address], [id number], Progress Notes * Fortino CAMERON DDOB:1960 (64 yo M)Acc No.[id number]:07/12/2024 Progress Note Patient: Korey ZARATE Fortino Nair Provider: Gerardo Hill DPM :1960 A ge:63 Y S ex:Male Date:07/12/2024 Address:[address], [place] Pcp:Lázaro Dubois MD Subjective: * Chief Complaints: [...] Date: 1 Generated for Didier mcnulty/Marc/Kenneth on: 09:12 AM EDT
--- OUTSIDE RECORDS SUMMARY | 2025-05-14 04:15 | XMS_ITS ---
Author Organization [facility] Address [address] [facility] [place] [address] Care Team Providers Care Employment Services Director Name Role Phone Lázaro Dubois MD Primary Care Provider Unavailab Armida Silva Unavailable [phone] Black, May Unavailable [phone] Allergies Allergen (clinical drug ingredient) Drug/Non Drug Allergy documented on EMR Reaction Allergy Type Onset Date Status meperidine Demerol get violent Drug Allergy Acti ve REASON FOR VISIT office cx appt Medications Medication SIG (Take, Route, Frequency, Duration) Notes Start Date End Date Status Toujeo SoloStar Acti ve Lyrica Active Augmentin Not-Taking Mupirocin 2 % 1 application Automobile Contract Clerk ally Once a day to wound; Duration: [...] Negative Encounters Encounter Location Date Provider Diagnosis [facility] [address] 05/14/2025 May Jenkins Plan Of Treatment Next Appt Details Provider Name:Armida Livingston Makayla livingston, 08/19/2025 10:00:00 AM, [address], [place], [address], Progress Notes * Frotino CAMERON DDOB:1960 (64 yo M)Acc No.[id number]:05/14/2025 Progress Note Patient: Fortino WALSH Provider: Doreen Jenkins DPM :1960 A ge:64 Y S ex:Male Date:05/14/2025 Address:[facility] [address], [place] Pcp:Lázaro Dubois MD Subjective: * Chief Complaints: [...] enies. C ardiovascular: Pacemaker d enies. 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 W PW d enies. C [...] 05/14/2025 Generated for Didier mcnulty/Marc/eTransmitting on: 1 09:12 AM EDT History and Physical Notes * HPI (History [...]
--- OUTSIDE RECORDS SUMMARY | 2025-07-18 23:59 | XMS_ITS | Continuity of Care Document ---
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 Role Phone Not on Staff, PCP Primary Care Physician Unavail able Encounter [facility] Date(s): 06/18/25 - 07/18/25 [facility] [address] [place] [id number] Encounter Type: Triage Allergies, Adverse Reactions, Alerts Substance Criticality Severity Reaction Reaction Severity Status Demerol HCl Violent behavior A ctive Immunizations Given and Recorded Vaccine Date Status Refusal Reason influenza virus vaccine, inactivated 07/02/25 Give n influenza virus vaccine, inactivated 07/25/20 Evelio rded influenza virus vaccine, inactivated 06/03/19 Evelio rded influenza virus vaccine, inactivated 06/16/18 Give n influenza virus vaccine, inactivated 06/27/09 Evelio rded influenza virus vaccine, inactivated 06/13/08 Evelio rded zoster vaccine, inactivated 09/23/22 Recorded zoster vaccine, inactivated 04/24/22 Recorded [id number] 12y+ bivalent booster vax 09/23/22 Recorded SARS-CoV-2 (COVID-19) mRNA-1273 vaccine 04/24/22 R ecorded SARS-CoV-2 (COVID-19) mRNA-1273 vaccine 09/04/21 R ecorded SARS-CoV-2 (COVID-19) mRNA-1273 vaccine 12/16/20 R ecorded SARS-CoV-2 (COVID-19) mRNA-1273 vaccine 11/10/20 R ecorded tetanus/diphtheria/pertussis, acel(Tdap) 07/17/07 Recorded pneumococcal 23-valent vaccine 04/11/07 Recorded Medications amitriptyline 25 mg oral tablet 25 mg, 1, tablet, By Mouth, Daily at bedtime, # 30 tablet, Refills 5, Maintenance, 09/28/23 3:50:00 AM EST, Partial fill upon patient request if the prescription is for a schedule II opioid drug. Start Date: 09/28/23 Status: Ordered Medication Dispense Status: Completed Quantity: 30.0 Unit: tablet Total Allowed Fills: 1 Fills Dispensed: 0 amLODIPine 2.5 mg oral tablet 1 tablet = 2.5 mg, By Mouth, Daily at bedtime, # 30 tablet, 0 Refills, Maintenance, 09/28/23 3:52:00 AM EST, Tablet, Partial fill upon patient request if the prescription is for a schedule II opioid drug. Start Date: 09/28/23 Status: Ordered Medication Dispense Status: Completed Quantity: 30.0 Unit: tablet Total Allowed Fills: 1 Fills Dispensed: 0 apixaban 5 mg oral tablet = 5 mg, By Mouth, 2 times a day, 0 Refills, Maintenance, 07/03/25 7:04:00 AM EDT, Tablet, Partial fill upon patient request if the prescription is for a schedule II opioid drug. Start Date: 07/03/25 Status: Ordered Medication Dispense Status: Completed Total Allowed Fills: 1 Fills Dispensed: 0 atorvastatin 20 mg oral tablet 1 tablet = 20 mg, By Mouth, Daily, 0 Refills, Maintenance Start Date: 04/24/18 Status: Ordered Medication Dispense Status: Completed Total Allowed Fills: 1 Fills Dispensed: 0 citalopram 40 mg oral tablet 1 tablet = 40 mg, By Mouth, Daily, # 30 tablet, 0 Refills, Maintenance, 09/28/23 3:51:00 AM EST, Tablet, Partial fill upon patient request if the prescription is for a schedule II opioid drug. Start Date: 09/28/23 Status: Ordered Medication Dispense Status: Completed Quantity: 30.0 Unit: tablet Total Allowed Fills: 1 Fills Dispensed: 0 clopidogrel 75 mg oral tablet 1, tablet, By Mouth, Daily, INSTR:STOP THE ASA 81MG DAILY, # 90 tablet, Refills 1, Tot. Refills 1, Maintenance, 05/29/25 8:06:00 AM EDT, Route to Pharmacy Electronically, [facility]/pharmacy #[id number], 181, cm, 05/24/25 10:52:00 EDT, Height, 100, kg, 09/27/23 11:13:00 EST, Dry Weight Start Date: 05/29/25 Status: Ordered Medication Dispense Status: Completed Quantity: 90.0 Unit: tablet Total Allowed Fills: 2 Fills Dispensed: 0 cyclobenzaprine 5 mg oral tablet 30 each, 0 Refill(s), TAKE 1 TABLET BY MOUTH EVERY DAY AT BEDTIME FOR 2 WEEKS THEN NEEDED, 0 Refills, 07/09/24 9:46:00 AM EDT, Partial fill upon patient request if the prescription is for a schedule II opioid drug. Start Date: 07/09/24 Status: Ordered Medication Dispense Status: Completed Total Allowed Fills: 1 Fills Dispensed: 0 Dexcom G7 Sensor Dexcom G7 Sensor, See Instructions, # 3 each, Refills 11, Tot. Refills 11, Maintenance, Use as directed for Diabetes Control. Change every 10 days E11.9, 04/03/25 12:41:00 PM EDT, Supply, 181, cm, 04/03/25 10:25:00 EDT, Height, 100, kg, 09/27/23 11:13:00 EST, Dry Weight Start Date: 04/03/25 Status: Ordered Medication Dispense Status: Completed Quantity: 3.0 Unit: each Total Allowed Fills: 12 Fills Dispensed: 0 Miscellaneous Rx 0 Refills, 3 each, 0 Refill(s), USE DIRECTED FOR DIABETES CONTROL. CHANGE EVERY 10 DAYS E11.9, 04/03/25 10:24:00 AM EDT Start Date: 04/03/25 Status: Ordered Medication Dispense Status: Completed Total Allowed Fills: 1 Fills Dispensed: 0 Mounjaro 5 mg/0.5 mL subcutaneous solution = 5 mg, Subcutaneous Injection, Every week, rotate injection sites, # 2 mL, 3 Refills, Maintenance,04/03/25 10:58:00 AM EDT, Solution, [facility]/pharmacy #[id number], Partial fill upon patient request if the prescription is for a schedule II opioid drug., 181, cm, 04/03/25 10:25:00 EDT, Height, 100, kg, 09/27/23 11:13:00 EST, Dry Weight Start Date: 04/03/25 Status: Ordered Medication Dispense Status: Completed Quantity: 2.0 Unit: mL Total Allowed Fills: 4 Fills Dispensed: 0 NovoLOG FlexPen 100 units/mL injectable solution See Instructions, 8-25 units subcutaneous Injection 3 times a day before meals based on sliding scale E11.9 MDD: 80 units, # 30 mL, 11 Refills, Maintenance, 04/03/25 12:39:00 PM EDT, [facility]/pharmacy #[id number], can switch to other brand of rapid acting insulin pen if this one is not cover by insurance, 181, cm, 04/03/25 10:25:00 EDT, Height, 100, kg, 09/27/23 11:13:00 EST, Dry Weight Start Date: 04/03/25 Status: Ordered Medication Dispense Status: Completed Quantity: 30.0 Unit: mL Total Allowed Fills: 12 Fills Dispensed: 0 oxyCODONE 5 mg oral tablet 5 mg, 1, tablet, By Mouth, Every 6 hours, PRN, # 56 tablet, Refills 0, Tot. Refills 0, Maintenance,as needed for pain, 07/16/25 8:02:00 AM EDT, Route to Pharmacy Electronically, [facility]/pharmacy #[id number], Partial fill upon patient request if the prescription is for a schedule II opioid drug., 180, cm, 07/03/25 12:28:00 EDT, Height, 131.5, kg, 07/02/25 0:18:00 EDT, Dry Weight Start Date: 07/16/25 Status: Ordered Medication Dispense Status: Completed Quantity: 56.0 Unit: tablet Total Allowed Fills: 1 Fills Dispensed: 0 Pen [place], 31 G x 5 mm BD Ultra Fine III See Instructions, # 400 each, Refills 3, Tot. Refills 3, Maintenance, Use up to 4 times per day forinsulin injection. E11.9 90 day supply, 04/03/25 12:38:00 PM EDT, 400 quantity for 3 months supplies,or less quantity as per insurance requirement. can switch to other brand as per patient request., Supply, 181, cm, 04/03/25 10:25:00 EDT, Height, 100, kg, 09/27/23 11:13:00 EST, Dry Weight Start Date: 04/03/25 Stop Date: 03/29/26 Status: Ordered Medication Dispense Status: Completed Quantity: 400.0 Unit: each Total Allowed Fills: 4 Fills Dispensed: 0 pregabalin 200 mg oral capsule 1 capsule = 200 mg, By Mouth, 2 times a day, 0 Refills, Maintenance, 04/21/23 7:27:00 PM EDT, Capsule, Partial fill upon patient request if the prescription is for a schedule II opioid drug. Start Date: 04/21/23 Status: Ordered Medication Dispense Status: Completed Total Allowed Fills: 1 Fills Dispensed: 0 Toujeo SoloStar 300 units/mL subcutaneous solution = 56 units, Subcutaneous Injection, Daily, 56 units subcutaneous injection once daily. 30 day supply e11.9, # 9 mL, 11 Refills, Maintenance, 04/03/25 12:48:00 PM EDT, Solution, [facility]/pharmacy #[id number], Partial fill upon patient request if the prescription is for a schedule II opioid drug., 181, cm, 04/03/25 10:25:00 EDT, Height, 100, kg, 09/27/23 11:13:00 EST, Dry Weight Start Date: 04/03/25 Status: Ordered Medication Dispense Status: Completed Quantity: 9.0 Unit: mL Total Allowed Fills: 12 Fills Dispensed: 0 Tylenol 325 mg oral tablet 975 mg, By Mouth, Every 6 hours, PRN, Refills 0, Maintenance, Pain , Moderate, 07/03/25 7:03:00 AM EDT, Partial fill upon patient request if the prescription is for a schedule II opioid drug. Start Date: 07/03/25 Status: Ordered Medication Dispense Status: Completed Total Allowed Fills: 1 Fills Dispensed: 0 Problem List Condition Confirmation Course Effective Dates Status Health St atus Informant BPH without urinary obstruction Confirmed Active Obesity (BMI 35 as of 06/05/2018) Confirmed Active Claudication Confirmed Active DM (diabetes mellitus), insulin Confirmed Active Headache Confirmed Active Hearing loss Confirmed Active History of CVA in adulthood Confirmed Active History of DVT of lower extremity Confirmed Active HLD (hyperlipidemia) Confirmed Active HTN (hypertension) Confirmed Active Left Inguinal hernia Confirmed Active CLARA (acute kidney injury) Confirmed Active Limb ischemia Confirmed Active Diabetic neuropathy Confirmed Active OA (osteoarthritis) Confirmed Active Peripheral arterial occlusive disease Confirmed Active Peripheral vascular disease Confirmed Active Severe obesity (BMI 35.0-39.9) with comorbidity Confirmed Active Smoker Confirmed Active Social History Social History Type Response Smoking Status Former smoker, quit more than 30 days ago; Other: quit 2016; entered on: 09/27/23 Sex Sex Representation Male (finding) Patient Care team information Care Team Personnel Name: Lyndsey Reina CNM Position: Reference Physician Member Role: Primary Care Nurse Address: [address] [place] [id number] Telecom: Name: Fabiola Parnell RN Position: S RN Member Role: Primary Care Nurse Name: Cata Fournier LPN Position: S RN Member Role: Primary Care Nurse Name: Broderick Baez RN Position: S RN Member Role: Primary Care Nurse Name: Ludmila Andrew RN Position: S RN Member Role: Primary Care Nurse Name: Anabella Delgado RN Position: S RN Member Role: Primary Care Nurse Name: Ingrid Puga RN Position: S RN Member Role: Primary Care Nurse Name: Not on Staff, PCP Position: [facility] Physician (General Medicine) Member Role: PCP Name: Aundrea Cardenas RN Position: S RN Member Role: Primary Care Nurse Name: Cata Figueroa RN Position: S RN Member Role: Primary Care Nurse Name: Adeola House RN Position: [facility] RN Member Role: Primary Care Nurse Care Team Related Persons Name: CATA FRAGA Name: CATA LI Insurance Providers Guarantor name: DEWEY FRAGA Health Plan Information #: 1 Payer: [id number] Payer Identifier: NA Member Number: [id number] Group Number: [id number] Subscriber Identifier: NA Relationship to Subscriber: self Coverage Type: NA Coverage Verification Date: NA Telecom: NA Address: NA Health Plan Information #: 2 Payer: [id number] Payer Identifier: NA Member Number: [id number] Group Number: [id number] Subscriber Identifier: NA Relationship to Subscriber: self Coverage Type: Other specified but not otherwise classifiable (includes Hospice - Unspecified plan) Coverage Verification Date: NA Telecom: NA Address:
--- NOTE | 2025-07-23 08:01 | MHC.PC.OV ---
Vital Signs 07/23/25 08:02 Height 5 ft 11 in Weight 271 lb 2 oz BMI 37.8 BP 128/82 Blood Pressure Location Lt brachial Position Sitting Pulse 93 Pulse Source Pulse Oximeter Temp 97.2 F Temp Source Temporal Artery Scan Pulse Oximetry (%) 98 Oxygen Delivery Method Room Air Intake Visit Reasons: S/P leg surgery 07/01, bypass/ecema - see comments [employer] Ebs Consultant Required: No Accompanied by: Self / Same As Patient Allergies meperidine (From DEMEROL) Allergy (Intermediate, Verified 07/23/25 08:03) BECAME VIOLENT Medication List - Last Reconciled 07/23/25 by Levy Johnson MD amitriptyline 25 mg PO BEDTIME amlodipine 2.5 mg PO BEDTIME apixaban (Eliquis) 5 mg PO BID atorvastatin 20 mg PO DAILY blood-glucose sensor (Digital Assent G7 Sensor device) As directed clopidogrel (Plavix) 75 mg PO DAILY 90 days FreeStyle Precision Nabil Strips (blood sugar diagnostic) once a day for calibration NS insulin aspart U-100 (Novolog FlexPen U-100 Insulin aspart) 15 units subcut TIDWM insulin glargine U-300 conc (Toujeo SoloStar U-300 Insulin) 56 units subcut DAILY Mounjaro (tirzepatide) 10 mg (0.5 mL) subcut QWEEK NS pen needle, diabetic (BD Deysi 2nd Gen Pen Needle) 5 times a day pregabalin 200 mg PO TID Tobacco use date assessed: 07/23/25 Dental Screening Dental Screen Date: 07/23/25 Did you have a dental visit in the last 12 months?: No Did you have a dental problem in the last 6 months where you did not have access to dental care?: No HPI HPI Comments History of Present Illness Details The patient is a 64-year-old male presenting with pruritus and for follow-up three weeks after a leg vein bypass surgery. He reports generalized itching, which he likens to eczema, that started approximately 3-4 weeks ago after his operation. He takes oxycodone twice daily for post-operative pain and notes that the itching improves in between doses and worsens after taking the medication. This morning, the patient experienced an episode of severe nausea where he felt he was going to vomit, though he did not. This occurred shortly after waking up and he had not eaten anything since the prior evening. He denies any associated diarrhea, abdominal pain, fevers, chills, or known sick contacts. The patient has a history of diabetes mellitus, for which he takes 56 units of glargine at night, 15 units of Novolog throughout the day, and 10 mg of Mounjaro weekly. He also takes pregabalin for diabetic neuropathy. He previously saw an speck dyer, Desmond Tamayo, at [facility] but has not had a follow-up in 3-4 months and believes he no longer has an speck dyer. His other chronic conditions include hypertension, managed with amlodipine 2.5 mg nightly, and hyperlipidemia, treated with atorvastatin 20 mg. He is on dual anticoagulant/antiplatelet therapy with Plavix 75 mg and Eliquis, but is unaware of the Eliquis dosage or the prescribed duration of therapy. The patient is not aware of the indication for his amitriptyline prescription and denies taking chlorthalidone. Medical History: - Diabetes Mellitus with neuropathy - Hypertension - Hyperlipidemia Surgical History: - Leg vein bypass surgery, 3 weeks prior Medications: - Amitriptyline: Dose and indication unknown by patient - Pregabalin: For neuropathy - Amlodipine 2.5 mg nightly: For blood pressure - Atorvastatin 20 mg: For cholesterol - Plavix 75 mg: Blood thinner - Eliquis: Blood thinner, dose unknown - Glargine 56 units nightly: For diabetes - Novolog 15 units throughout the day: For diabetes - Mounjaro 10 mg weekly: For diabetes - Oxycodone: For post-operative pain - Denies taking chlorthalidone Social History: - Medication Adherence and Management: The patient's manages all of his medications; he reports being unfamiliar with his prescriptions, doses, or indications. [facility] Medical History (Updated 07/23/25 @ 09:06 by Levy Johnson MD) Nausea Pruritus Diabetic neuropathy PVD (peripheral vascular disease) Hypertension Diabetes Leg swelling Pre-op evaluation Tubular adenoma Positive colorectal cancer screening using Cologuard test Diabetic nephropathy associated with type 2 diabetes mellitus Pulmonary nodules History of stroke Osteoarthritis Obesity (BMI 30-39.9) Dyslipidemia 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 of both eyes Diabetic polyneuropathy associated with type 2 diabetes mellitus FDC (current) use of insulin Vitamin D deficiency Diabetes type 2, uncontrolled Surgical History History of colonoscopy (~02/17/21) Hx of vein stripping History of uvulopalatopharyngoplasty Hx of appendectomy Family History Father Diabetes mellitus HTN (hypertension) Mother Lung disease Social History Household Members: Family Household Members Other:: and son Housing: House Do you presently have visiting nurse or other home services: No Alcohol intake: current Alcohol intake frequency: does not drink Patient Tobacco Use Status: Former Tobacco user Tobacco use type: Cigarette Cigarette Packs Per Day: 1 Years Smoked: 30 e-Cigarette/Vaping Use: Never Used service: Yes Current occupational status: employed Current occupation: [employer] Cognitive needs: No Hearing needs: No Vision needs: No Questionnaire PHQ-9 Over the last 2 weeks, how often have you been bothered by any of the following problems? 1. Little interest or pleasure in doing things: not at all 2. Feeling down, depressed, or hopeless: not at all 3. Trouble falling or staying asleep, or sleeping too much: not at all 4. Feeling tired or having little energy: not at all 5. Poor appetite or overeating: not at all 6. Feeling bad about yourself - or that you are a failure or have let yourself or your family down: not at all 7. Trouble concentrating on things, such as reading the newspaper or watching television: not at all 8. Moving or speaking so slowly that other people could have noticed. Or the opposite - being so fidgety or restless that you have been moving around a lot more than usual: not at all 9. Thoughts that you would be better off or of hurting yourself in some way: not at all Total score: 0 Source: Developed by Drs. José Turner, Vonda Romero, Ion Liu and colleagues, with an educational jesse from [employer]. Thrive Questionnaire Date Thrive assessed: 07/23/25 I am a: Patient Within the past 12 months, did the food you bought not last and you didn't have the money to get more?: Never true Within the past 12 months, did you worry whether your food would run out before you got money to buy more?: Never true Do you have trouble paying for medicines?: No Do you have trouble getting transportation to medical appointments?: No Do you have trouble paying your heating and electricity bill?: No Do you have trouble taking care of your child, family member or friend?: No Do you have trouble with day-to-day activities such as bathing, preparing meals, shopping, managing finances, etc.?: No Are you currently unemployed and looking for a job?: No Are you interested in more education?: No THRIVE Score: 0 AUDIT C Alcohol Use Questionnaire (AUDIT-C) 1. How often do you have a drink containing alcohol?: Never 3. How often do you have six or more drinks on one occasion?: Never Total Score: 0 ZIGGY-7 AMB Questionnaire ZIGGY-7 Date ZIGGY - 7 assessed: 07/23/25 Feeling nervous, anxious, or on edge: 0 = Not at all Not being able to stop or control worryin = Not at all Worrying too much about different things: 0 = Not at all Trouble relaxin = Not at all Being so restless that it is hard to sit still: 0 = Not at all Becoming easily annoyed or irritable: 0 = Not at all Feeling afraid as if something awful might happen: 0 = Not at all Total ZIGGY-7 score (0-4 normal; 5-9 mild; 10-14 moderate; 15-21 severe): 0 Source: Developed by Drs. José Turner, Vonda Romero, Ion Liu and colleagues, with an educational jesse from [employer]. Review of Systems Narrative - Constitutional: Denies fever or chills. - Integumentary: Reports generalized pruritus, which he describes as feeling like eczema. - Gastrointestinal: Reports one episode of nausea with near-emesis. Denies vomiting, diarrhea, or abdominal pain. - Musculoskeletal: Reports intermittent leg pain when he tweaks it. Denies pain at rest. - Psychological: Reports feeling very shaky and uptight. All systems reviewed & are unremarkable except as reviewed in HPI and above Physical exam (Primary Care) Vital Signs: Last Vital Signs Temp 97.2 F 07/23/25 08:02 Pulse 93 07/23/25 08:02 BP 128/82 07/23/25 08:02 Pulse Ox 98 07/23/25 08:02 Oxygen Delivery Method Room Air 07/23/25 08:02 BMI result Body Mass Index 37.8 Tobacco/Smoking Status: Tobacco use Status Tobacco use date assessed 07/23/25 07/23/25 08:13 Patient Tobacco Use Status Former Tobacco user 07/23/25 08:01 Tobacco use type Cigarette 07/23/25 08:01 e-Cigarette/Vaping Use Never Used 07/23/25 08:01 PHQ-9: PHQ-9 Score PHQ-9: Total score 0 07/23/25 08:43 Thrive Assessment: Date of Thrive Assessment Date Thrive assessed 07/23/25 07/23/25 08:19 Narrative General: Alert and oriented, Well nourished, No acute distress. Eye: Pupils are equal, round and reactive to light, Intact accommodation, Extraocular movements are intact, Normal conjunctiva, Vision unchanged. HENT: Normocephalic, Atraumatic, Tympanic membranes are clear, Normal hearing, Oral mucosa is moist, No pharyngeal erythema, Ear canals patent. Respiratory: Lungs CTA bilaterally, No wheeze, Respirations are non-labored. Cardiovascular: Regular rate, Regular rhythm, S1 auscultated, S2 auscultated, No murmur, Good pulses equal in all extremities, Normal peripheral perfusion, No edema. Gastrointestinal: Soft, Non-tender, Non-distended, Normal bowel sounds, No organomegaly, No nausea or vomiting, No diarrhea. Musculoskeletal: Normal range of motion, Normal strength, No tenderness, No swelling, No deformity, Normal gait, No pain except when leg is tweaked. Integumentary: Warm, Dry, [place], Itchy all over, No lesions. Wound on RLE Neurologic: Alert, Oriented, Normal sensory, Normal motor function, No focal defects, Cranial Nerves II-XII are grossly intact, Normal deep tendon reflexes. Psychiatric: Cooperative, Appropriate mood & affect, Normal judgment, Feeling uptight about the situation. 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 - The plan is to discontinue oxycodone, given the patient reports no significant pain at rest. - Advised topical lotions or use of OTC antihistamines for itching Code(s): L29.9 - Pruritus, unspecified Category: Medical (2) Nausea: Comment: - The patient experienced a single, self-limited episode of near-emesis. - The etiology is unclear but may be viral gastroenteritis. - Plan is to monitor symptoms and rest. - If persistent vomiting occurs, a prescription for anti-nausea medication can be provided. Code(s): R11.0 - Nausea Category: Medical (3) PVD (peripheral vascular disease): Comment: - S/p Femoral Bypass Bilaterally - S/p RLE Procedure (Possible bypass) - unclear what procedure was completed and patient not compliant to provide further information. - He has been on Eliquis for the same, when asked how long and the indication patient reports he is unaware as his manages those things and he doesn't want to to discuss that Code(s): I73.9 - Peripheral vascular disease, unspecified Category: Medical (4) Hypertension: Comment: - Maintain current regimen with amlodipine 2.5mg BID - Not taking chlorthalidone despite having repeated scripts sent for the same. Code(s): I10 - Essential (primary) hypertension Category: Medical Qualifiers: Hypertension type: essential hypertension Qualified Code(s): I10 - Essential (primary) hypertension (5) Dyslipidemia: Comment: - Continue atorvastatin. Code(s): E78.5 - Hyperlipidemia, unspecified Category: Medical (6) Diabetes: Comment: - The patient is on a complex multi-drug regimen but currently lacks specialist follow-up. - He has not seen his speck dyer in 3-4 months and is uncertain about his current specialist care while his scripts have been refilled repeatedly - It is unclear of his home sugars and his last A1c being 7.9 in February. Have advised he contact them if he has any concerns. 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 insulin use: with care home use Diabetes mellitus complication status: with hyperglycemia Qualified Code(s): E11.65 - Type 2 diabetes mellitus with hyperglycemia; Z79.4 - adjunct faculty for medical terminology (current) use of insulin (7) Diabetic neuropathy: Comment: - Maintain current regimen of pregabalin 200mg TID Code(s): E11.40 - Type 2 diabetes mellitus with diabetic neuropathy, unspecified Category: Medical Qualifiers: Diabetes mellitus type: type 2 Diabetes mellitus complication detail: diabetic polyneuropathy Qualified Code(s): E11.42 - Type 2 diabetes mellitus with diabetic polyneuropathy Plan: Health Maintenance: - Advised patient to contact his surgeon to clarify the necessary duration of his Eliquis therapy. - Discussed the lack of current endocrinology follow-up for management of his complex diabetes regimen. Patient was informed and verbally consented to the use of an ambient scribe for clinic note documentation during this visit. Plan I discussed with the patient that his complaint of itching is very likely a side effect of the oxycodone he is taking for post-surgical pain. Since he does not have significant pain at rest, I recommended he discontinue the medication. Regarding his episode of nausea, I advised observation and rest, explaining it could be a transient issue like a stomach bug. I emphasized the importance of clarifying the duration of his Eliquis therapy and instructed him to contact his surgeon for this information. The patient appeared anxious and dismissive when discussing his medications, and overall not wanting to discuss treatment or management. Patient Instructions: - Stop taking oxycodone, as it is likely causing your itching. If you are not having significant pain, you do not need to take it. - For your feelings of nausea, rest and see how you feel through the day. If you start throwing up a lot, let our office know so we can send in a prescription for nausea medication. - You need to call your surgeon's office and ask for how long you are supposed to take the blood thinner Eliquis.
[2025-07-23 08:02] VITALS: BP 128/82; PULSE 93; TEMP 36.2; O2SAT 98; BMI 37.8
--- OUTSIDE RECORDS SUMMARY | 2025-07-23 09:12 | XMS_ITS | Patient Health Record ---
Author Organization [facility] Address [address] [place] [address] Care Team Providers Care Associate Financial Analyst Name Role Phone Lázaro Dubois MD Primary Care Provider Unavailab Armida Silva Unavailable [phone] Black, May Unavailable [phone] Allergies Allergen (clinical drug ingredient) Drug/Non Drug Allergy documented on EMR Reaction Allergy Type Onset Date Status meperidine Demerol get violent Drug Allergy Acti ve Results Component Value Reference Range Notes HEMOGLOBIN A1C (GLYCOHEMOGLO BIN) Reviewed date:05/14/2025 08:12:41 AM Interpretation: Performing Lab: Notes/Report: HEMOGLOBIN A1C % (HH) 7.6 Reason For Referral No Information Medications Medication SIG (Take, Route, Frequency, Duration) Notes Start Date End Date Status Trulicity Not-Taking metFORMIN HCl 1000 MG 1 tablet with meal s Orally Twice a day Not-Taking Toujeo SoloStar Acti ve Lantus Not-Taking Lyrica Active Gabapentin 600 MG 1 tablet Orally Once a day Not-Taking Mupirocin 2 % 1 application Web Production Manager ally Once a day to wound; Duration: 30 days 01/09/2024 Active Atorvastatin Calcium Active Doxycycline Not-Taki ng Amoxicillin-Pot Clavulanate 875-125 MG 1 tablet Orally every 12 hrs; Duration: 10 day(s) 09/23/2022 Active Augmentin Not-Taking Keflex 500 MG 1 capsule Orally chandler ry 12 hrs; Duration: 10 days 02/09/2022 Not-Taking Work Note . . . Patient cleared to return to work on 01/17/23 without restrictions 01/06/2023 Not-Taking Extra Depth Orthopedic Shoes (1 Pair) with Customized Heat Molded Multidensity Innersoles (3 Pair) as directed Dx: IDDM/Polyneuropathy (E10.42), Hammertoe Foot Deformity (M20.41,M20.42), Preulcerative Skin Lesion(s) (L85.1) 01/06/2023 Not-Taking Doxycycline Hyclate 100 MG 1 capsule Orally Twice a day; Duration: 14 days 10/13/2022 Not-Takin g HYDROcodone-Acetaminophe n 5-325 MG 1 tablet as needed Orally every 4-6 hrs. Patient can half fill RX; Duration: 10 days Not-Taking oxyCODONE HCl 5 MG 1-2 tablet as needed Orally every 4-6 hrs as needed for pain; Duration: 10 days 11/15/2022 Not-Taking Augmentin 500-125 MG 1 tablet Orally chandler ry 8 hrs; Duration: 7 day(s) 03/22/2022 Not-Taki ng Keflex 500 MG 1 capsule Orally chandler ry 12 hrs; Duration: 7 days 03/16/2022 Not-Broderick ing eliquis Active Cipro 500 MG 1 tablet Orally ever y 12 hrs; Duration: 10 day(s) 09/15/2022 Not-Broderick ing Bactrim DS 800-160 MG 1 tablet Orally Tw ice a day; Duration: 7 days 03/22/2022 Not-Taking Omeprazole 20 MG 1 capsule 30 minutes before morning meal Orally Once a day; Duration: 30 day(s) Active Augmentin 500-125 MG 1 tablet Orally Twi ce a day; Duration: 14 days 10/13/2022 Not-Takin g Ozempic Active traMADol HCl 50 MG 1 tablet as needed Orally Every 4-6 hours as needed for pain; Duration: 14 days 10/06/2022 Not-Taking amLODIPine Besylate 10 MG 1 tablet Orally Once a day Active NovoLOG 100 UNIT/ML as directed Injection Active Metoprolol Succinate ER 50 MG 1 tablet Orally Once a day Not-Taking HumaLOG Active Immunizations Vaccine Route Administration Date Status Comme nts Influenza Unknown 09/13/2017 Refused Influenza Unknown 06/02/2023 Administered Influenza Unknown 07/11/2024 Administered Social History Tobacco Use: Social History Observation Description Date Details (start date - stop date) Never Smoker NA - NA Alcohol Screen Question Answer Notes Did you [...] ast year? No Points 0 Interpretation Negative Problems Problem Type SNOMED Code ICD Code Onset Dates Problem Status W/U Status Risk Notes Problem Polyneuropathy due to diabetes mellitus (50299511) Type 1 diabetes mellitus with polyneuropathy (E10.42) Active confirmed Problem Bilateral atherosclerosis of arteries of lower limbs ([id number] ) Atherosclerosis of [place] artery of both legs with rest pain (I70.223) Active confirmed Vital Signs Blood pressure diastolic 70 mm Hg 06/10/2025 Height 5ft 11in in 06/10/2025 Blood pressure systolic 120 mm Hg 06/10/2025 Weight 250 lbs 06/10/2025 BMI 34.86 kg/m2 06/10/2025 Encounters Encounter Location Date Provider Diagnosis [address] [address] 05/23/2025 Armida Hill Type 1 diabetes mellitus with polyneuropathy E10.42 ; Neuropathic ulcer of left foot with fat layer exposed L97.522 ; Unspecified atherosclerosis of [place] arteries of extremities, bilateral legs I70.203 ; Tinea unguium B35.1 ; Other hammer toe(s) (acquired), right foot M20.41 ; Other hammer toe(s) (acquired), left foot M20.42 and Cellulitis of left foot L03.[address] [address] 06/10/2025 Armida Hill Type 1 diabetes mellitus with polyneuropathy E10.42 ; Cellulitis of left foot L03.116 ; Unspecified atherosclerosis of [place] arteries of extremities, bilateral legs I70.203 ; Other hammer toe(s) (acquired), left foot M20.42 and Neuropathic ulcer of left foot, limited to breakdown of skin L97.521 [facility] [address] [place] [address] 05/13/2025 Armida Hill [facility] [place] [address] [place] [address] 05/14/2025 Arm[facility] [address] [address] 05/23/2025 Armida Hill Assessments Encounter Date Diagnosis (ICD Code) Assessment Notes Treatment Notes Treatment Clinical Notes Section Notes 05/23/2025 Type 1 diabetes mellitus with polyneuropathy (ICD-10 - E10.42) 05/23/2025 Neuropathic ulcer of left foot with fat layer exposed (ICD-10 - L97.522) 06/10/2025 Cellulitis of left foot (ICD-10 - L03.116) 06/10/2025 Type 1 diabetes mellitus with polyneuropathy (ICD-10 - E10.42) 06/10/2025 Unspecified atherosclerosis of [place] arteries of extremities, bilateral legs (ICD-10 - I70.203) 05/23/2025 Unspecified atherosclerosis of [place] arteries of extremities, bilateral legs (ICD-10 - I70.203) 05/23/2025 Tinea unguium (ICD-10 - B35.1) 06/10/2025 Other hammer toe(s) (acquired), left foot (ICD-10 - M20.42) 06/10/2025 Neuropathic ulcer of left foot, limited to breakdown of skin (ICD-10 - L97.521) 05/23/2025 Other hammer toe(s) (acquired), right foot (ICD-10 - M20.41) 05/23/2025 Other hammer toe(s) (acquired), left foot (ICD-10 - M20.42) 05/23/2025 Cellulitis of left foot (ICD-10 - L03.116) Plan Of Treatment Pending Test Test Name [...] X ray : Foot, right 3V 01/05/2024 [id number] NAIL, 6 OR MORE 05/31/2018 [id number] SKIN LESIONS, 2 TO 4 05/31/20 18 Next Appt Details Provider Name:Armida livingston, 08/19/2025 10:00:00 AM, [address] [facility], [place], [address], Insurance Providers Payer Name Payer Address Payer Phone Subscriber Number Group Number Insured Name Patient Relationship to Insured Coverage Start Date Coverage End Date [employer] [address] [place] [phone] [id number] Fortino Cameron Self - patient is the [...]
--- OUTSIDE RECORDS SUMMARY | 2025-07-23 09:13 | XMS_ITS | Clinical Summary ---
Author Organization [facility] it Address [address] [place] [address] Care Team Providers Care Shirt Operator Name Role Phone Lázaro Dubois MD Primary Care Provider [phone] Surgical History Surgery Date Site/Laterality Comments APPENDECTOMY PROCEDURE: HISTORICAL APPENDECTOMY NOSE SURGERY PROCEDURE: [place] UNLISTED PROCEDURE NOSE; COMMENT: repair deviated septum [...] age to complete this topic Care Teams Shirt Operator Relationship Specialty Start Date End Date Lázaro Dubois MD [address] [place] [address] [place], [place] [address] PCP - General 12/12/17
--- OUTSIDE RECORDS SUMMARY | 2025-07-23 09:13 | XMS_ITS | Encounter Summary ---
Author Organization [facility] Address [address] [place] [address] Care Team Providers Care Surgeon Assistant Name Role Phone Unavailable Primary Care Provider Unavailabl e Encounter Details Date Type Department Care Team (Late st Contact Info) Description 07/31/2021 Scanned Document [address] [place] [phone] Provider, Generic Social History Tobacco Use Types Packs/Day Years Used Date Smoking Tobacco: Never Assessed Sex and Gender Information Value Date Recorded Sex Assigned at Not on file Legal Sex Male 7:11 PM EDT Gender Identity Not on file Sexual Orientation Not on file documented as of this encounter Plan of Treatment Not on file documented as of this encounter Visit Diagnoses Not on filedocumented in this encounter
--- OUTSIDE RECORDS SUMMARY | 2025-07-23 09:13 | XMS_ITS | Clinical Summary ---
Author Organization [facility] Address [address] [place] [address] Care Team Providers Care Platform Beater Name Role Phone Unavailable Primary Care Provider [...] COVID-19 Vaccine ( - 2023-2 5 season) 2025 RSV Vaccine 50 years and old er and Patients (1 - 1-dose 75+ series) 2037 Hepatitis B Vaccines Aged Out No long er eligible based on patient's age to complete this topic
--- OUTSIDE RECORDS SUMMARY | 2025-07-23 09:13 | XMS_ITS | Clinical Summary ---
Author Organization [facility] Address [address] [place] [address] Care Team Providers Care Technology Lead Name Role Phone Unavailable Primary Care Provider [...]
== END 2025-07-23 09:00 | disposition home or self-care (01) ==
LOC: HO.HMCHD 08:31
PROVIDERS: PCP Student in an Organized Health Care Education/Training Program; Visit Provider Student in an Organized Health Care Education/Training Program
DX: L29.9 Pruritus, unspecified (principal); R11.0 Nausea; I73.9 Peripheral vascular disease, unspecified; I10 Essential (primary) hypertension; E78.5 Hyperlipidemia, unspecified; E11.65 Type 2 diabetes mellitus with hyperglycemia; Z79.4 Long term (current) use of insulin; E11.42 Type 2 diabetes mellitus with diabetic polyneuropathy

== ENCOUNTER 2025-07-30 09:21 | Outpatient (AMB) | payer OTHER, SELFPAY ==
--- OUTSIDE RECORDS SUMMARY | 2024-03-15 05:00 | XMS_ITS ---
Author Organization [facility] Address [address] [facility] [place] [address] Care Team Providers Care Squeegeer And Former Name Role Phone Silvino SNOW, Lázaro Primary Care Provider Unavailab Armida Silva Unavailable [phone] REASON FOR VISIT seen on 02/23/2024 Encounters Encounter Location Date Provider Diagnosis [address] [address] 03/15/2024 Armida Hill Plan Of Treatment Next Appt Details Provider Name:Armida livingston, 08/19/2025 10:00:00 AM, [address] [place] [address], [phone], Progress Notes * Fortino CAMERON DDOB:1960 (64 yo M)Acc No.[id number]:03/15/2024 Progress Note Patient: Fortino WALSH Provider: Gerardo Hill DPM :1960 A ge:63 Y S ex:Male Date:03/15/2024 Address:[address], [place] Pcp:Lázaro Dubois MD Subjective: * Chief Complaints: * 1 . Seen on 02/23/2024. * Medical History: Objective: * Vitals: Assessment: Plan: * Treatment: * Images: * The named appointment provid er may or may not be the originator of this progress note, and it is not deemed complete until electronically signed by the appointment provider. Sign off status: Pending * Provider: Gerardo Hill DPM Date: 0 03/15/2024 Generated for Didier Snell/Kenneth on: 09/29/2024 10:15 AM EST
--- OUTSIDE RECORDS SUMMARY | 2024-07-12 05:00 | XMS_ITS ---
Author Organization [facility] Address [address] [facility] [place] [address] Care Team Providers Care Master Planner Name Role Phone Silvino SNOW, Lázaro Primary Care Provider Unavailab Armida Silva Unavailable [phone] Encounters Encounter Location Date Provider Diagnosis [address] [address] 07/12/2024 Armida Hill Plan Of Treatment Next Appt Details Provider Name:Armida livingston, 08/19/2025 10:00:00 AM, [address] [place] [address], [phone], Progress Notes * Fortino CAMERON DDOB:1960 (64 yo M)Acc No.[id number]:07/12/2024 Progress Note Patient: Korey ZAARTE Fortino Nair Provider: Gerardo Hill DPM :1960 A ge:63 Y S ex:Male Date:07/12/2024 Address:[address], [place] Pcp:Lázaro Dubois MD Subjective: * Chief Complaints: * * Medical History: Objective: * Vitals: Assessment: Plan: * Treatment: * Images: * The named appointment provid er may or may not be the originator of this progress note, and it is not deemed complete until electronically signed by the appointment provider. Sign off status: Pending * Provider: Gerardo Hill DPM Date: 1 Generated for Didier mcnulty/Marc/Kenneth on: 09/29/2024 10:14 AM EST
--- OUTSIDE RECORDS SUMMARY | 2025-05-14 03:15 | XMS_ITS ---
Author Organization [facility] Address [address] [facility] [place] [address] Care Team Providers Care Architectural Wood Model Maker Name Role Phone Lázaro Dubois MD Primary Care Provider Unavailab Armida Silva Unavailable [phone] Black, May Unavailable [phone] Allergies Allergen (clinical drug ingredient) Drug/Non Drug Allergy documented on EMR Reaction Allergy Type Onset Date Status meperidine Demerol get violent Drug Allergy Acti ve REASON FOR VISIT office cx appt Medications Medication SIG (Take, Route, Frequency, Duration) Notes Start Date End Date Status Toujeo SoloStar Acti ve Lyrica Active Augmentin Not-Taking Mupirocin 2 % 1 application County Director Welfare ally Once a day to wound; Duration: 30 days 01/09/2024 Active Atorvastatin Calcium Active HumaLOG Active amLODIPine Besylate 10 MG 1 tablet Orally Once a day Active NovoLOG 100 UNIT/ML as directed Injection Active Omeprazole 20 MG 1 capsule 30 minutes before morning meal Orally Once a day; Duration: 30 day(s) Active Ozempic Active Lantus Not-Taking Gabapentin 600 MG 1 tablet Orally Once a day Not-Taking Trulicity Not-Taking metFORMIN HCl 1000 MG 1 tablet with meal s Orally Twice a day Not-Taking eliquis Active Metoprolol Succinate ER 50 MG 1 tablet Orally Once a day Not-Taking Augmentin 500-125 MG 1 tablet Orally Twi ce a day; Duration: 14 days 10/13/2022 Not-Takin g traMADol HCl 50 MG 1 tablet as needed Orally Every 4-6 hours as needed for pain; Duration: 14 days 10/06/2022 Not-Taking Amoxicillin-Pot Clavulanate 875-125 MG 1 tablet Orally every 12 hrs; Duration: 10 day(s) 09/23/2022 Not-Broderick ing Cipro 500 MG 1 tablet Orally ever y 12 hrs; Duration: 10 day(s) 09/15/2022 Not-Broderick ing Bactrim DS 800-160 MG 1 tablet Orally Tw ice a day; Duration: 7 days 03/22/2022 Not-Taking Augmentin 500-125 MG 1 tablet Orally chandler ry 8 hrs; Duration: 7 day(s) 03/22/2022 Not-Taki ng Keflex 500 MG 1 capsule Orally chandler ry 12 hrs; Duration: 7 days 03/16/2022 Not-Broderick ing HYDROcodone-Acetaminophe n 5-325 MG 1 tablet as needed Orally every 4-6 hrs. Patient can half fill RX; Duration: 10 days Not-Taking oxyCODONE HCl 5 MG 1-2 tablet as needed Orally every 4-6 hrs as needed for pain; Duration: 10 days 11/15/2022 Not-Taking Doxycycline Hyclate 100 MG 1 capsule Orally Twice a day; Duration: 14 days 10/13/2022 Not-Takin g Work Note . . . Patient cleared to return to work on 01/17/23 without restrictions 01/06/2023 Not-Taking Extra Depth Orthopedic Shoes (1 Pair) with Customized Heat Molded Multidensity Innersoles (3 Pair) as directed Dx: IDDM/Polyneuropathy (E10.42), Hammertoe Foot Deformity (M20.41,M20.42), Preulcerative Skin Lesion(s) (L85.1) 01/06/2023 Not-Taking Social History Tobacco Use: Social History Observation Description Date Details (start date - stop date) Never Smoker NA - NA Tobacco use other than smoking: Question Answer Notes Are you an other tobacco user? No Tobacco Control (Standard) Question Answer Notes Tobacco use: Nonsmoker Additional Findings: Tobacco non-user Current no nsmoker AUDIT-C (Standard) Question Answer Notes Did you have a drink containing alcohol in the p ast year? No Points 0 Interpretation Negative Encounters Encounter Location Date Provider Diagnosis [facility] [address] 05/14/2025 May Jenkins Plan Of Treatment Next Appt Details Provider Name:Armida Livingston Makayla livingston, 08/19/2025 10:00:00 AM, [address], [place], [address], Progress Notes * Fortino CAMERON DDOB:1960 (64 yo M)Acc No.[id number]:05/14/2025 Progress Note Patient: Fortino WALSH Provider: Doreen Jenkins DPM :1960 A ge:64 Y S ex:Male Date:05/14/2025 Address:[facility] [address], [id number] Pcp:Lázaro Dubois MD Subjective: * Chief Complaints: * 1 . Office cx appt. * HPI: A t Risk footcare: Pt States Last PCP Visit: D ate 0 04/09/2025 * ROS: G eneral/Constitutional: Nausea d enies. V omiting d enies. H geovani Thirst d enies. L oss appetite d enies. C hills d enies. F atigue d enies.?Fever d enies. N ight Sweats d enies. U nexplained weight loss d enies. U nexplained weight gain d enies. H EENTM: Dentures d enies. D izziness d enies. G lasses/contacts d enies. R etinopathy d enies. B lurred/double vision d enies. T MJ?denies. D ischarge/drainage d enies. I mplants d enies. S ore throat d enies. D ental implants d enies. H oscar of hearing d enies. D ifficulty chewing/swallowing/speaking d enies. N ose bleeds d enies. S ore mouth d enies. ? R espiratory: On Oxygen d enies. P neumonia/pleurisy d enies.?Bronchitis d enies. E mphysema d enies. C oughing d enies. C ough blood?denies. S hortness of breath d enies. W heezing d enies. C ardiovascular: Pacemaker d enies. M BULK PICKER d enies. W PW d enies. C HF d enies. H eart attack d enies. S eptal defect d enies. R apid beat d enies. C hest pain d enies. A trial Fib. d enies. M urmur/Palpitations d enies. G astrointestinal: Hemorrhoids d enies. S tomach/Abdominal pain d enies. D ark blood stool d enies. I rritable bowel d enies. C onstipation d enies. D iarrhea d enies. H ematology: Swelling d enies. C lots d enies. V aricose Veins d enies. B ruising d enies. B leeding problem d enies. G enitourinary: Blood urine d enies. F requent/Painfu/urination/bladder control d enies. K idney stones d enies. I nfection (UTI) d enies. N ephropathy d enies. s ex trans dis (STD) d enies. P rostate d enies. M usculoskeletal: Hammertoes d enies. B unions d enies. B ack Pain d enies. M uscle Cramps/ Resting d enies. M uscle cramps / walking d enies.?Generalized aches and pains d enies. W eakness d enies. I nteg.: Hernández d enies. S cars d enies. C orns/calluses?denies. I ngrown nails d enies. P ainful nails d enies. O pen Sores d enies. R ashes d enies. N eurologic: Difficulty sleeping d enies. B rain disorder d enies. N umbness d enies. B alance trouble d enies. C onfusion d enies. F ainting/blackouts d enies. T ingling d enies. T remors d enies. * Medical History: H igh blood pressure, Diabetic, Measles, Mumps, Chicken pox, Anxiety, Scarlet fever, Stroke, Poor circulation. * Surgical History: a ppendectomy 1986, stent in right leg 04/2018, vascular bypass 11/02/2022, Amputation left 2nd toe 05/02/23. * Hospitalization/Major Diagno stic Procedure: [facility]- 3 day stay, inf toe 04/21/23, [facility] stomach virus 09/2023. * Family History: M other: , foot problems, diagnosed with Family history of arthritis. F ather: , heart attack, diagnosed with Diabetic - NIDDM, Unspecified essential hypertension, Unspecified cerebral artery occlusion with cerebral infarction, Family history of arthritis. S pouse: alive. M aternal Grand Father: diagnosed with Other malignant neoplasm of unspecified site. * Social History: T obacco Use: T obacco use other than smoking A re you an other tobacco user? N o Tobacco Control (Standard) T obacco use: N onsmoker A dditional Findings: Tobacco non-user C urrent nonsmoker M iscellaneous: C affeine: yes, frequency:, 1-2 cups per day. Children: yes. Exercise: no. Marital status: . Occupation: Works Full-time. D rug/Alcohol: A NELSON-C (Standard) D id you have a drink containing alcohol in the past year? N o P oints 0 I nterpretation N egative * Medications: T aking eliquis , Taking Ozempic , Taking Omeprazole 20 MG Capsule Delayed Release 1 capsule 30 minutes before morning meal Orally Once a day , Taking NovoLOG 100 UNIT/ML Solution as directed Injection , Taking amLODIPine Besylate 10 MG Tablet 1 tablet Orally Once a day , Taking HumaLOG , Taking Lyrica , Taking Toujeo SoloStar , Taking Atorvastatin Calcium , Taking Mupirocin 2 % Ointment 1 application Externally Once a day to wound , Not-Taking/PRN Augmentin , Not-Taking/PRN Extra Depth Orthopedic Shoes (1 Pair) with Customized Heat Molded Multidensity Innersoles (3 Pair) as directed Dx: IDDM/Polyneuropathy (E10.42), Hammertoe Foot Deformity (M20.41,M20.42), Preulcerative Skin Lesion(s) (L85.1) , Not-Taking/PRN Work Note . . . . Patient cleared to return to work on 01/17/23 without restrictions , Not-Taking/PRN Doxycycline Hyclate 100 MG Capsule 1 capsule Orally Twice a day , Not-Taking/PRN oxyCODONE HCl 5 MG Tablet 1-2 tablet as needed Orally every 4-6 hrs as needed for pain , Not-Taking/PRN HYDROcodone-Acetaminophen 5-325 MG Tablet 1 tablet as needed Orally every 4-6 hrs. Patient can half fill RX , Not-Taking/PRN Keflex 500 MG Capsule 1 capsule Orally every 12 hrs , Not-Taking/PRN Augmentin 500-125 MG Tablet 1 tablet Orally every 8 hrs , Not-Taking/PRN Bactrim DS 800-160 MG Tablet 1 tablet Orally Twice a day , Not-Taking/PRN Cipro 500 MG Tablet 1 tablet Orally every 12 hrs , Not-Taking/PRN Amoxicillin-Pot Clavulanate 875-125 MG Tablet 1 tablet Orally every 12 hrs , Not-Taking/PRN traMADol HCl 50 MG Tablet 1 tablet as needed Orally Every 4-6 hours as needed for pain , Not-Taking/PRN Augmentin 500-125 MG Tablet 1 tablet Orally Twice a day , Not-Taking/PRN Metoprolol Succinate ER 50 MG Tablet Extended Release 24 Hour 1 tablet Orally Once a day , Not-Taking/PRN metFORMIN HCl 1000 MG Tablet 1 tablet with meals Orally Twice a day , Not-Taking/PRN Trulicity , Not-Taking/PRN Gabapentin 600 MG Tablet 1 tablet Orally Once a day , Not-Taking/PRN Lantus , Medication List reviewed and reconciled with the patient * Allergies: D emerol: get violent. Objective: * Vitals: * P ast Orders: L ab:HEMOGLOBIN A1C (GLYCOHEMOGLOBIN) (Order Date - 04/09/2025) (Collection Date & Time - 05/14/2025 08:12 AM) Value Reference Range HEMOGLOBIN A1C % (HH) 7.6 * Examination: O phthalmology Referral: DIABETES EYE EXAM P rocedure Performed: Merlyn Nair ate of Exam Performed 1 D iabetic Retinopathy Screening: Y jahaira Charles indings of Diabetic Eye Exam: n o retinopathy Assessment: Plan: * Treatment: * Images: * The named appointment provid er may or may not be the originator of this progress note, and it is not deemed complete until electronically signed by the appointment provider. Sign off status: Pending * Provider: Doreen Jenkins DPM Date: 0 05/14/2025 Generated for Didier mcnulty/Marc/eTransmitting on: 1 09/29/2024 10:14 AM EST History and Physical Notes * HPI (History of Present Illness) Category Sub-Category Detail Notes Category Not es At Risk footcare Pt States Last PCP Visit: Date: Examination Category Sub-Category Detail Notes Category Not es Ophthalmology Referral DIABETES EYE EXAM Procedu re Performed:: Yes Date of Exam Performed: 07/09/2025 Diabetic Retinopathy Screening:: Yes Findings of Diabetic Eye Exam:: no retin opathy
--- OUTSIDE RECORDS SUMMARY | 2025-07-24 22:59 | XMS_ITS | Continuity of Care Document ---
Author Organization [facility] Address [address] [place] [phone]- Care Team Providers Care Clinical Education Specialist Name Role Phone Not on Staff, PCP Primary Care Physician Unavail able [place] [facility] [place]): [place]25 [place] 07/24/25 [facility] [address] [place] [address]- Encounter Diagnosis Peripheral artery disease(Discharge Diagnosis) - 07/17/25 Attending Physician: Samuel SNOW, Ingrid Magana Admitting Physician: Samuel SNOW, Ingrid Magana Encounter Type: Office Visit Allergies, Adverse Reactions, Alerts Substance Criticality Severity [...] 09/23/22 Recorded zoster vaccine, inactivated 04/24/22 Recorded [id number] 12y+ bivalent booster vax 09/23/22 Recorded SARS-CoV-2 [...] By Mouth, 2 times a day, # 180 tablet, 0 Refills, Maintenance, 07/19/25 10:52:00 AM EDT, Tablet, [facility]/pharmacy #[id number], Partial fill upon patient request if the prescription is for a schedule IIopioid drug., 180, cm, 07/17/25 13:16:00 EDT, Height, 131.5, kg, 07/02/25 0:18:00 EDT, Dry Weight Start Date: 07/19/25 Stop Date: 10/17/25 Status: Ordered Medication Dispense Status: Completed Quantity: 180.0 Unit: tablet Total Allowed Fills: 1 Fills [...] 8:06:00 AM EDT, Route to Pharmacy Electronically, [facility]/pharmacy #[id number], 181, cm, 05/24/25 10:52:00 EDT, Height, 100, [...] FOR DIABETES CONTROL. CHANGE EVERY 10 DAYS E11., 04/03/25 10:24:00 AM EDT Start Date: 04/03/25 Status: Ordered Medication Dispense Status: Completed Total Allowed Fills: 1 Fills Dispensed: 0 Mounjaro 5 mg/0.5 mL subcutaneous solution = 5 mg, Subcutaneous Injection, Every week, rotate injection sites, # 2 mL, 3 Refills, Maintenance,04/03/25 10:58:00 AM EDT, Solution, [facility]/pharmacy #[id number], Partial fill upon patient request [...] 11 Refills, Maintenance, 04/03/25 12:39:00 PM EDT, [facility]/pharmacy #[id number], can switch to other brand [...] 8:02:00 AM EDT, Route to Pharmacy Electronically, [facility]/pharmacy #[id number], Partial fill upon patient request if the prescription is for a schedule II opioid drug., 180, cm, 07/03/25 12:28:00 EDT, Height, 131.5, kg, 07/02/25 0:18:00 EDT, Dry Weight Start Date: 07/16/25 Status: Ordered Medication Dispense Status: Completed Quantity: 56.0 Unit: tablet Total Allowed Fills: 1 Fills Dispensed: 0 Pen [place], 31 G x 5 mm BD Ultra [...] Refills, Maintenance, 04/03/25 12:48:00 PM EDT, Solution, [facility]/pharmacy #[id number], Partial fill upon patient request [...] with comorbidity Confirmed Active Smoker Confirmed Active Diagnosis Diagnosis Type Effective Dates Health Status Clinical Service Informant Peripheral artery disease Discharge Diagnosis 07/17/25 Vital Signs Most recent to oldest [Reference Range]: 1 Height 180 cm (07/17/25 1:16 PM) Weight 118.18 kg (07/17/25 1:16 PM) Oxygen Saturation [94-100 %] 98 % (07/17/25 1:16 PM) Pulse Rate [55-90 bpm] 71 bpm (07/17/25 1:16 PM) Body Mass Index [18.5-24.99 kg/m2] 36.48 kg/m2 *H* (07/17/25 1:16 PM) Blood Pressure [90-138/55-84 mm Hg] 128/ 70mm Hg (07/17/25 1:16 PM) Blood pressure sites Arm, left (07/17/25 1:16 PM) Weight Obtained Via Patient/family state d (07/17/25 1:16 PM) Social History Social History Type Response Smoking Status Former smoker, quit more than 30 days ago; Other: quit 2015; entered on: 09/27/23 Sex Sex Representation Male (finding) Note * Daya Platt: PERFORM Event Display: Patient Education/Instruction Authored Date: [id number] Ambulatory Adult Visit Summary [facility] [address] [facility] [address] [place] [address] Name: DEWEY FRAGA : 1960?? Visit: 07/17/2025 12:46?? Ambulatory Visit Instructions ?? Your Care Team Primary Care Provider Not on Staff, PCP?? This Visit Provider Samuel SNOW , Ingrid Magana Vitals Signs Pulse Rate: 71 bpm Height: 180 cm Systolic Blood Pressure: 128 mm Hg Weight: 118.18 kg Diastolic Blood Pressure: 70 mm Hg Body Mass Index:??36.48 kg/m2??High Oxygen Saturation: 98 % Body surface area: 2.43 What to do next Scheduled Follow-Up Appointments Tuesday 2:30 PM EST ?? Type: Venous Incompetency Bilateral Where: [facility] [address] [address]- Status: Pending Tuesday 2:00 PM EST ?? Type: Return With: Courtney Redd NP Where: [facility] [address] [facility] [address] [place] [address]- Status: Pending Future Orders VL Arterial Bypass Right Graft, Routine, Reason for Exam: Bypass Graft Patency, Bypass Graft: Femoral to Peroneal Graft, Once, *Est. 07/17/25, Single or Recurring Future Order Comprehensive Metabolic Panel - Routine, Once, 08/30/24 8:21:00 EST, Single or Recurring Future Order, [facility], Blood?? Microalbumin Urine - Routine, Once, 08/30/24 8:21:00 EST, Single or Recurring Future Order, [facility], Urine?? Lipid Panel - Routine, Once, 08/30/24 8:21:00 EST, Single or Recurring Future Order, [facility], Blood?? Microalbumin Urine (Urine Microalbumin) - Routine, Once, 04/03/25 10:47:00 EDT, [facility], Urine?? Creatinine - Routine, Once, 04/03/25 10:47:00 EDT, Single or Recurring Future Order, [facility], Blood?? Medications The list below reflects the information in our records and provided by you today along with any changes made during this visit. Please continue your medications until treatment is completed or stopped by your provider. If this is different from the information you have or there are other questions,please contact the prescribing provider. What How Much When Instructions Unchanged Acetaminophen (Tylenol 325 mg oral tablet) 975 Milligram Oral Every 6 hours as needed for Pain , Moderate Ordering Physician: Kalen NIETO, Nati Jimenez Unchanged amiTRIPTYLINE (amitriptyline 25 mg oral tablet) 1 tab(s) Oral Daily at Bedtime Unchanged Amlodipine (amLODIPine 2.5 mg oral tablet) 1 tab(s) Oral Daily at Bedtime Unchanged apixaban (apixaban 5 mg oral tablet) 5 Milligram Oral Twice a day Ordering Physician: Kalen NIETO, Nati Jimenez Unchanged Atorvastatin (atorvastatin 20 mg oral tablet) 1 tab(s) Oral Daily Unchanged Citalopram (citalopram 40 mg oral tablet) 1 tab(s) Oral Daily Unchanged Clopidogrel (clopidogrel 75 mg oral tablet) 1 tab(s) Oral Daily Special Instructions: INSTR:STOP THE ASA 81MG DAILY Ordering Physician: Courtney Redd NP ?? Unchanged Cyclobenzaprine (cyclobenzaprine 5 mg oral tablet) Special Instructions: 30 each, 0 Refill(s), TAKE 1 TABLET BY MOUTH EVERY DAY AT BEDTIME FOR 2 WEEKSTHEN NEEDED ?? Unchanged Durable Medical Equipment (Dexcom G7 Sensor) See instructions Special Instructions: Use as directed for Diabetes Control. Change every 10 days
E11.9 Ordering Physician: Desmond Tamayo NP ?? Unchanged Durable Medical Equipment (Pen [place], 31 G x 5 mm BD Ultra Fine III) See instructions Duration: 90 Days Special Instructions: Use up to 4 times per day for insulin injection.

E11.9
90 day supply Ordering Physician: Desmond Tamayo NP ?? Unchanged Insulin Aspart (NovoLOG FlexPen 100 units/ mL injectable solution) See instructions Special Instructions: 8-25 units subcutaneous Injection 3 times a day before meals based on slidingscale

E11.9
MDD: 80 units Ordering Physician: Desmond Tamayo NP ?? Unchanged Insulin Glargine (Toujeo SoloStar 300 units/ mL subcutaneous solution) 56 unit(s) Subcutaneous Injection Daily Special Instructions: 56 units subcutaneous injection once daily.

30 day supply
e11.9 Ordering Physician: Desmond Tamayo NP ?? Unchanged Miscellaneous Rx Special Instructions: 3 each, 0 Refill(s), USE DIRECTED FOR DIABETES CONTROL. CHANGE EVERY 10 DAYS E11.9 ?? Unchanged Oxycodone (oxyCODONE 5 mg oral tablet) 1 tab(s) Oral Every 6 hours as needed for as needed for pain Ordering Physician: Ingrid Baker MD Unchanged Pregabalin (pregabalin 200 mg oral capsule) 1 capsule Oral Twice a day Unchanged tirzepatide (Mounjaro 5 mg/ 0.5 mL subcutaneous solution) 5 Milligram Subcutaneous Injection Every week Special Instructions: rotate injection sites Ordering Physician: Desmond Tamayo NP ?? Medications and Immunizations Administered Medications Given During Visit No medications given during this visit.?? Allergies (NKA means No Known Allergies) Demerol HCl??Violent behavior Common Emergency Awareness Tips IS IT A STROKE? Act FAST and Check for these signs: FACE Does the face look uneven? ARM Does one arm drift down? SPEECH Does their speech sound strange? TIME Call at any sign of stroke ?? Heart Attack Signs Chest discomfort: Most heart attacks involve discomfort in the center of the chest and lasts more than a few minutes, or goes away and comes back. It can feel like uncomfortable pressure, squeezing, fullness or pain. Discomfort in upper body: Symptoms can include pain or discomfort in one or both arms, back, neck, jaw or stomach. Shortness of breath: With or without discomfort. Other signs: Breaking out in a cold sweat, nausea, or lightheaded. Remember, MINUTES DO MATTER. If you experience any of these heart attack warning signs, call to get immediate medical attention! ?? Smoking can increase your chances of developing chronic health problems and can cause harmful effects to other family members in your house. If you smoke, you are strongly encouraged to quit. Please call [facility] [email or web address] Link at [phone] or [phone] ([phone]) or log in to [email or web address] for referrals to smoking cessation programs. ?? The National Suicide Prevention Hotline is available 18/04 if you or someone you know needs to find a reason to keep living. By calling 4-415-032-Biodesy (3083) you'll be connected to a skilled, trained counselor at a crisis center in your area. [facility] [email or web address] Portal You can view and manage your care through the patient portal or by using a health care johnnie of your choosing. [employer] is a website that allows you to securely view your medical information including your hospital discharge summary, office visit summaries, medications and follow-up visits. You can also request appointments, renew medications, and request access to your medical information using a health care johnnie of your choosing, or just ask a question. You can enroll at [email or web address] or register during your next office visit. [facility], in keeping with [facility] guidance, no longer requires face masks for staff, patientsor visitors in most situations. Similiar to time spent indoors at other locations, there is the chance that you were exposed to repiratory viruses during your time with us (such as flu or COVID-19). If you develop symptoms concerning for a viral respiratory infection, please seek testing (and treatment if indicated) from your medical provider or home test kit. ?? Disclaimer: The information provided is of a general nature and is intended to be used in conjunction with the recommendations and advice of your health care practitioner. Every effort has been made to ensure that the information provided is accurate and complete at the time it is provided to you however, as your needs change, or, as new information becomes available, different or additional instructions may be required. ?? If you have questions, please consult with your primary care provider or pharmacist, as appropriate. This information is not intended to serve as substitution for assessment and evaluation by a qualified health care provider. If you do not have a primary care provider, you may find a [facility] provider by calling [facility] Link at [phone]. Patient Care team information Care Team Personnel Name: Lyndsey Reina CNM Position: Reference Physician Member Role: Primary Care Nurse Address: [address] [place] [id number] Telecom: Name: Fabiola Parnell RN Position: [facility] RN Member Role: Primary Care Nurse Name: Magdiel Fournier LPN Position: S RN Member Role: [...] Nurse Name: Not on Staff, PCP Position: S Physician (General Medicine) Member Role: PCP Name: Aundrea Cardenas RN Position: S RN Member Role: Primary Care Nurse Name: Magdiel Figueroa RN Position: S RN Member Role: Primary Care Nurse Name: Adeola House RN Position: S RN Member Role: Primary Care Nurse Care Team Related Persons Name: MAGDIEL FRAGA Name: MAGDIEL LI Insurance Providers Guarantor name: DEWEY FRAGA Health Plan Information #: 1 Payer: I01 [employer] Payer Identifier: NA Member Number: [id number] Group Number: [id number] Subscriber Identifier: [id number] Relationship to Subscriber: self Coverage Type: NA Coverage Verification Date: NA Telecom: NA Address: NA Health Plan Information #: 2 Payer: J41 [facility] Payer Identifier: NA Member Number: [id number] Group Number: NA Subscriber Identifier: [id number] Relationship to Subscriber: self Coverage Type: Other specified but not otherwise classifiable (includes Hospice - Unspecified plan) Coverage Verification Date: NA Telecom: NA Address:
--- OUTSIDE RECORDS SUMMARY | 2025-07-24 22:59 | XMS_ITS | Continuity of Care Document ---
Author Organization [facility] Address [address] [place] [address]- Care Team Providers Care Medical Officer Name Role Phone Not on Staff, PCP Primary Care Physician Unavail able [facility]counter [facility] Date(s): 06/24/25 - 07/24/25 [facility] [address] [place], [place] [address] Encounter Type: Triage Allergies, Adverse Reactions, [...] 09/23/22 Recorded zoster vaccine, inactivated 04/24/22 Recorded [id number] 12y+ bivalent booster vax 09/23/22 Recorded SARS-CoV-2 [...] Refills, Maintenance, 07/19/25 10:52:00 AM EDT, Tablet, [facility]/pharmacy #[id number], Partial fill upon patient request [...] 8:06:00 AM EDT, Route to Pharmacy Electronically, [facility]/pharmacy #[id number], 181, cm, 05/24/25 10:52:00 EDT, [...] 3 Refills, Maintenance,04/03/25 10:58:00 AM EDT, Solution, [facility]/pharmacy #[id number], Partial fill upon patient request [...] 11 Refills, Maintenance, 04/03/25 12:39:00 PM EDT, [facility]/pharmacy #0315, can switch to other brand [...] 8:02:00 AM EDT, Route to Pharmacy Electronically, [facility]/pharmacy #[id number], Partial fill upon patient request if the prescription is for a schedule II opioid drug., 180, cm, 07/03/25 12:28:00 EDT, Height, 131.5, kg, 07/02/25 0:18:00 EDT, Dry Weight Start Date: 07/16/25 Status: Ordered Medication Dispense Status: Completed Quantity: 56.0 Unit: tablet Total Allowed Fills: 1 Fills Dispensed: 0 Pen [place], 31 G x 5 mm BD Ultra [...] Physician Member Role: Primary Care Nurse Address: [address] [place] [address] Telecom: Name: Fabiola Parnell RN Position: S RN Member Role: Primary Care Nurse Name: Cata Fournier LPN Position: S RN Member Role: Primary Care Nurse Name: Broderick Baez RN Position: S RN Member Role: Primary Care Nurse Name: Ludmila Andrew RN Position: S RN Member Role: Primary Care Nurse Name: Anabella Delgado RN Position: [facility] RN Member Role: Primary Care Nurse Name: Ingrid Puga RN Position: [facility] RN Member Role: Primary Care Nurse Name: Not on Staff, PCP Position: [facility] Physician (General Medicine) Member Role: PCP Name: Aundrea Cardenas RN Position: [facility] RN Member Role: Primary Care Nurse Name: Cata Figueroa RN Position: [facility] RN Member Role: Primary Care Nurse Name: Adeola House RN Position: [facility] RN Member Role: Primary Care Nurse Care Team Related Persons Name: CATA FRGAA Name: CATA LI Insurance Providers Guarantor name: DEWEY FRAGA Health Plan Information #: 1 Payer: I01 [employer] Payer Identifier: NA Member Number: [id number] Group Number: [id number] Subscriber Identifier: NA Relationship to Subscriber: self Coverage Type: NA Coverage Verification Date: NA Telecom: NA Address: NA Health Plan Information #: 2 Payer: J41 [facility] Payer Identifier: NA Member Number: [id number] Group Number: NA Subscriber Identifier: NA Relationship to Subscriber: self Coverage Type: Other specified but not otherwise classifiable (includes Hospice - Unspecified plan) Coverage Verification Date: NA Telecom: NA Address: NA
--- OUTSIDE RECORDS SUMMARY | 2025-07-25 22:59 | XMS_ITS | Continuity of Care Document ---
Author Organization [facility] Address [address] [place] [address]- Care Team Providers Care Elementary Supervisor Name Role Phone Not on Staff, PCP Primary Care Physician Unavail able [facility]counter [facility] Date(s): 06/25/25 - 07/25/25 [facility] [address] [place], [place] [address] Encounter Type: Triage Allergies, Adverse Reactions, Alerts [...] 09/23/22 Recorded zoster vaccine, inactivated 04/24/22 Recorded [id number] 12y+ bivalent booster vax 09/23/22 Recorded SARS-CoV-2 [...] Refills, Maintenance, 07/19/25 10:52:00 AM EDT, Tablet, [facility]/pharmacy #[id number], Partial fill upon patient request [...] 8:06:00 AM EDT, Route to Pharmacy Electronically, [facility]/pharmacy #[id number], 181, cm, 05/24/25 10:52:00 EDT, [...] 3 Refills, Maintenance,04/03/25 10:58:00 AM EDT, Solution, [facility]/pharmacy #0315, Partial fill upon patient request [...] 11 Refills, Maintenance, 04/03/25 12:39:00 PM EDT, [facility]/pharmacy #0315, can switch to other brand [...] 8:02:00 AM EDT, Route to Pharmacy Electronically, [facility]/pharmacy #[id number], Partial fill upon patient request if the prescription is for a schedule II opioid drug., 180, cm, 07/03/25 12:28:00 EDT, Height, 131.5, kg, 07/02/25 0:18:00 EDT, Dry Weight Start Date: 07/16/25 Status: Ordered Medication Dispense Status: Completed Quantity: 56.0 Unit: tablet Total Allowed Fills: 1 Fills Dispensed: 0 Pen [place], 31 G x 5 mm BD Ultra [...] Physician Member Role: Primary Care Nurse Address: [address] [place] [address] Telecom: Name: Fabiola Parnell RN Position: S RN Member Role: Primary Care Nurse Name: Cata Fournier LPN Position: S RN Member Role: Primary Care Nurse Name: Broderick Baez RN Position: S RN Member Role: Primary Care Nurse Name: Ludmila Andrew RN Position: S RN Member Role: Primary Care Nurse Name: Anabella Delgado RN Position: [facility] RN Member Role: Primary Care Nurse Name: Ingrid Puga RN Position: [facility] RN Member Role: Primary Care Nurse Name: Not on Staff, PCP Position: [facility] Physician (General Medicine) Member Role: PCP Name: Aundrea Cardenas RN Position: [facility] RN Member Role: Primary Care Nurse Name: Cata Figueroa RN Position: [facility] RN Member Role: Primary Care Nurse Name: Adeola House RN Position: [facility] RN Member Role: Primary Care Nurse Care Team Related Persons Name: CATA FRAGA Name: CATA LI Insurance Providers Guarantor name: DEWEY FRAGA Health Plan Information #: 1 Payer: I01 [employer] Payer Identifier: NA Member Number: [id number] Group Number: [id number] Subscriber Identifier: NA Relationship to Subscriber: self Coverage Type: NA Coverage Verification Date: NA Telecom: NA Address: NA Health Plan Information #: 2 Payer: J41 [facility] Payer Identifier: NA Member Number: [id number] Group Number: NA Subscriber Identifier: NA Relationship to Subscriber: self Coverage Type: Other specified but not otherwise classifiable (includes Hospice - Unspecified plan) Coverage Verification Date: NA Telecom: NA Address: NA
--- OUTSIDE RECORDS SUMMARY | 2025-07-26 22:59 | XMS_ITS | Continuity of Care Document ---
Author Organization [facility] Address [address] [place] [address]- Care Team Providers Care Board Layer Name Role Phone Not on Staff, PCP Primary Care Physician Unavail able [facility]counter [facility] Date(s): 06/26/25 - 07/26/25 [facility] [address] [place], [place] [address] Encounter Type: Triage Allergies, Adverse Reactions, Alerts [...] 09/23/22 Recorded zoster vaccine, inactivated 04/24/22 Recorded [id number] 12y+ bivalent booster vax 09/23/22 Recorded SARS-CoV-2 [...] Maintenance, 07/19/25 10:52:00 AM EDT, Tablet, [facility]/pharmacy #[id number], Partial fill upon patient request if [...] AM EDT, Route to Pharmacy Electronically, [facility]/pharmacy #[id number], 181, cm, 05/24/25 10:52:00 EDT, Height, [...] Refills, Maintenance,04/03/25 10:58:00 AM EDT, Solution, [facility]/pharmacy #0315, Partial fill upon patient request if [...] Refills, Maintenance, 04/03/25 12:39:00 PM EDT, [facility]/pharmacy #0315, can switch to other brand of [...] AM EDT, Route to Pharmacy Electronically, [facility]/pharmacy #[id number], Partial fill upon patient request if the prescription is for a schedule II opioid drug., 180, cm, 07/03/25 12:28:00 EDT, Height, 131.5, kg, 07/02/25 0:18:00 EDT, Dry Weight Start Date: 07/16/25 Status: Ordered Medication Dispense Status: Completed Quantity: 56.0 Unit: tablet Total Allowed Fills: 1 Fills Dispensed: 0 Pen [place], 31 G x 5 mm BD Ultra [...] Physician Member Role: Primary Care Nurse Address: [address] [place] [address] Telecom: Name: Fabiola Parnell RN Position: S RN Member Role: Primary Care Nurse Name: Cata Fournier LPN Position: S RN Member Role: Primary Care Nurse Name: Broderick Baez RN Position: S RN Member Role: Primary Care Nurse Name: Ludmila Andrew RN Position: S RN Member Role: Primary Care Nurse Name: Anabella Delgado RN Position: [facility] RN Member Role: Primary Care Nurse Name: Ingrid Puga RN Position: [facility] RN Member Role: Primary Care Nurse Name: Not on Staff, PCP Position: [facility] Physician (General Medicine) Member Role: PCP Name: Aundrea Cardenas RN Position: [facility] RN Member Role: Primary Care Nurse Name: Cata Figueroa RN Position: [facility] RN Member Role: Primary Care Nurse Name: Adeola House RN Position: [facility] RN Member Role: Primary Care Nurse Care Team Related Persons Name: CATA FRAGA Name: CATA LI Insurance Providers Guarantor name: DEWEY FRAGA Health Plan Information #: 1 Payer: I01 [employer] Payer Identifier: NA Member Number: [id number] Group Number: [id number] Subscriber Identifier: NA Relationship to Subscriber: self Coverage Type: NA Coverage Verification Date: NA Telecom: NA Address: NA Health Plan Information #: 2 Payer: J41 [facility] Payer Identifier: NA Member Number: [id number] Group Number: NA Subscriber Identifier: NA Relationship to Subscriber: self Coverage Type: Other specified but not otherwise classifiable (includes Hospice - Unspecified plan) Coverage Verification Date: NA Telecom: NA Address: NA
--- NOTE | 2025-07-30 09:27 | MHC.PC.OV ---
Vital Signs 07/30/25 09:31 Height 5 ft 11 in Weight 270 lb BMI 37.7 BP 126/72 Blood Pressure Location Lt brachial Position Sitting Respiration 18 Pulse 83 Pulse Source Pulse Oximeter Temp 97.8 F Temp Source Temporal Artery Scan Pulse Oximetry (%) 96 Oxygen Delivery Method Room Air Intake Visit Reasons: follow Web Applications Administrator Required: No Accompanied by: Self / Same As Patient Allergies meperidine (From DEMEROL) Allergy (Intermediate, Verified 07/30/25 09:28) BECAME VIOLENT Tobacco use date assessed: 07/23/25 Dental Screening Dental Screen Date: 07/23/25 HPI HPI Comments History of Present Illness Details The patient is a 64-year-old male presenting for follow-up of post-surgical complaints including severe foot pain and generalized pruritus. The pain in his foot was particularly severe the previous night, described as a constant pressure, and his leg felt warm. He attributes this to revascularization pain following a recent surgery for severe peripheral vascular disease, during which his blood vessels were noted to be completely blocked. The patient also reports generalized pruritus, which began after his recent surgery. Oxycodone was started post-operatively but discontinued without improvement in the itching. He denies trying any lnpy-qbi-tzqtgnj antihistamines or creams for the pruritus. The patient's medical history is notable for uncontrolled diabetes, which is recognized as a contributing factor to nerve damage and pain. He is currently on pregabalin for pain and reports taking two extra pills, which provided significant but incomplete relief. Medical History: - Uncontrolled type 2 diabetes mellitus - Peripheral vascular disease with severely blocked vessels - Hypertension - Hyperlipidemia Surgical History: - Recent revascularization surgery of the leg with vein harvesting Medications: - Amitriptyline for neuropathic pain - Amlodipine 2.5 mg for blood pressure - Atorvastatin for cholesterol - Eliquis for anticoagulation - Plavix for blood thinning - Novolog insulin 15 units three times a day - Glargine insulin 56 units daily - Mounjaro 10 - Pregabalin 600 mg daily for pain - Oxycodone as needed for pain [facility] Medical History (Updated 07/30/25 @ 09:53 by Levy Johnson MD) Nausea Pruritus Diabetic neuropathy PVD (peripheral vascular disease) Hypertension Diabetes Leg swelling Pre-op evaluation Tubular adenoma Positive colorectal cancer screening using Cologuard test Diabetic nephropathy associated with type 2 diabetes mellitus Pulmonary nodules History of stroke Osteoarthritis Obesity (BMI 30-39.9) Dyslipidemia 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 of both eyes Diabetic polyneuropathy associated with type 2 diabetes mellitus 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 Vitamin D deficiency Diabetes type 2, uncontrolled Surgical History History of colonoscopy (~02/17/21) Hx of vein stripping History of uvulopalatopharyngoplasty Hx of appendectomy Family History Father Diabetes mellitus HTN (hypertension) Mother Lung disease Social History Household Members: Family Household Members Other:: and son Housing: House Do you presently have visiting nurse or other home services: No Alcohol intake: current Alcohol intake frequency: does not drink Patient Tobacco Use Status: Former Tobacco user Tobacco use type: Cigarette Cigarette Packs Per Day: 1 Years Smoked: 30 e-Cigarette/Vaping Use: Never Used service: Yes Current occupational status: employed Current occupation: [employer] Cognitive needs: No Hearing needs: No Vision needs: No Questionnaire PHQ-9 Over the last 2 weeks, how often have you been bothered by any of the following problems? 1. Little interest or pleasure in doing things: not at all 2. Feeling down, depressed, or hopeless: not at all 3. Trouble falling or staying asleep, or sleeping too much: not at all 4. Feeling tired or having little energy: not at all 5. Poor appetite or overeating: not at all 6. Feeling bad about yourself - or that you are a failure or have let yourself or your family down: not at all 7. Trouble concentrating on things, such as reading the newspaper or watching television: not at all 8. Moving or speaking so slowly that other people could have noticed. Or the opposite - being so fidgety or restless that you have been moving around a lot more than usual: not at all 9. Thoughts that you would be better off or of hurting yourself in some way: not at all Total score: 0 Depression Screening Interpretation: Negative Depression Screening Done: Yes Source: Developed by Drs. José Turner, Vonda Romero, Ion Liu and colleagues, with an educational jesse from [email or web address]. Thrive Questionnaire Date Thrive assessed: 07/30/25 I am a: Patient What is your living situation today?: I have a steady place to live Within the past 12 months, did the food you bought not last and you didn't have the money to get more?: Never true Within the past 12 months, did you worry whether your food would run out before you got money to buy more?: Never true Do you have trouble paying for medicines?: No Do you have trouble getting transportation to medical appointments?: No Do you have trouble paying your heating and electricity bill?: No Do you have trouble taking care of your child, family member or friend?: No Do you have trouble with day-to-day activities such as bathing, preparing meals, shopping, managing finances, etc.?: No Are you currently unemployed and looking for a job?: No Are you interested in more education?: No THRIVE Score: 0 ZIGGY-7 AMB Questionnaire ZIGGY-7 Date ZIGGY - 7 assessed: 07/30/25 Feeling nervous, anxious, or on edge: 0 = Not at all Not being able to stop or control worryin = Not at all Worrying too much about different things: 0 = Not at all Trouble relaxin = Not at all Being so restless that it is hard to sit still: 0 = Not at all Becoming easily annoyed or irritable: 0 = Not at all Feeling afraid as if something awful might happen: 0 = Not at all Total ZIGGY-7 score (0-4 normal; 5-9 mild; 10-14 moderate; 15-21 severe): 0 Source: Developed by Drs. José Turner, Ion Hawk and colleagues, with an educational jesse from [email or web address]. ZIGGY-7 Assessment Billing ZIGGY-7 Assessment Tool: ZIGGY-7 Assessment 31816 Review of Systems Narrative - Integumentary: Reports generalized pruritus without rash. - Neurological: Reports severe, constant pain in his foot. - Musculoskeletal: Reports his leg felt warm. All systems reviewed & are unremarkable except as reviewed in HPI and above Physical exam (Primary Care) Vital Signs: Last Vital Signs Temp 97.8 F 07/30/25 09:31 Pulse 83 07/30/25 09:31 Resp 18 07/30/25 09:31 BP 126/72 07/30/25 09:31 Pulse Ox 96 07/30/25 09:31 Oxygen Delivery Method Room Air 07/30/25 09:31 BMI result Body Mass Index 37.7 Tobacco/Smoking Status: Tobacco use Status Tobacco use date assessed 07/23/25 07/30/25 09:28 Patient Tobacco Use Status Former Tobacco user 07/30/25 09:28 Tobacco use type Cigarette 07/30/25 09:28 e-Cigarette/Vaping Use Never Used 07/30/25 09:28 Depression Screening Interpretation: Negative Thrive Assessment: Date of Thrive Assessment Date Thrive assessed 07/23/25 07/30/25 09:28 Narrative General: +Alert and oriented, Well nourished, No acute distress. Eye: Pupils are equal, round and reactive to light, Intact accommodation, Extraocular movements are intact, Normal conjunctiva, Vision unchanged. HENT: Normocephalic, Atraumatic, Tympanic membranes are clear, Normal hearing, Oral mucosa is moist, No pharyngeal erythema, Ear canals patent. Respiratory: Lungs CTA bilaterally, No wheeze, Respirations are non-labored. Cardiovascular: Regular rate, Regular rhythm, S1 auscultated, S2 auscultated, No murmur, Good pulses equal in all extremities, Normal peripheral perfusion, No edema. Gastrointestinal: Soft, Non-tender, Non-distended, Normal bowel sounds, No organomegaly. Musculoskeletal: Normal range of motion, Normal strength, No tenderness, No swelling, No deformity, Normal gait. Integumentary: Warm, Dry, [place], Intact, Itching present on foot. Neurologic: Alert, Oriented, Normal sensory, Normal motor function, No focal defects, Cranial Nerves II-XII are grossly intact, Normal deep tendon reflexes. Psychiatric: Cooperative, Appropriate mood & affect, Normal judgment. 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 - A delayed hypersensitivity reaction to Eliquis is suspected, as stopping oxycodone did not resolve the symptom. - The plan is to discontinue Eliquis and start Xarelto 20 mg once daily. (To be started tomorrow after stopping Eliquis tonight) - The patient is also advised to start cetirizine once daily, use mbxf-wyd-xqdoara cooling lotions, and investigate potential environmental triggers like new detergents. - If pruritus persists, switching Plavix to Brilinta will be considered. Code(s): L29.9 - Pruritus, unspecified Category: Medical (2) Diabetic neuropathy: Comment: - The severe foot pain is assessed as revascularization pain, a known complication following surgery to restore blood flow to ischemic tissues. - This is compounded by underlying neuropathy from uncontrolled diabetes. - The plan is to continue amitriptyline and pregabalin 600 mg for pain management, with the caution not to take excessive doses of pregabalin. - Oxycodone may be used sparingly for severe pain. - The patient was counseled that this pain is part of the healing process. Code(s): E11.40 - Type 2 diabetes mellitus with diabetic neuropathy, unspecified Category: Medical Qualifiers: Diabetes mellitus type: type 2 Diabetes mellitus complication detail: diabetic polyneuropathy Qualified Code(s): E11.42 - Type 2 diabetes mellitus with diabetic polyneuropathy (3) Diabetes: Comment: - The patient's diabetes is uncontrolled and contributing to his neuropathy. - The plan is for the patient to contact his cloth shrinking tester for further management. - He will continue his current regimen of Novolog, glargine, and Mounjaro. - It is unclear of his home sugars and his last A1c being 7.9 in February. 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 ad terminal makeup operator insulin use: with ad terminal makeup operator use Diabetes mellitus complication status: with hyperglycemia Qualified Code(s): E11.65 - Type 2 diabetes mellitus with hyperglycemia; Z79.4 - USP (current) use of insulin (4) Hypertension: Comment: - Maintain current regimen with amlodipine 2.5mg BID - Pressures very well controlled - Not taking chlorthalidone despite having repeated scripts sent for the same. (Have requested his come to his next appointment to go over his medications) Code(s): I10 - Essential (primary) hypertension Category: Medical Qualifiers: Hypertension type: essential hypertension Qualified Code(s): I10 - Essential (primary) hypertension (5) PVD (peripheral vascular disease): Comment: - S/p Femoral Bypass Bilaterally - S/p RLE Procedure (Possible bypass) - unclear what procedure was completed and patient not compliant to provide further information. - Op reports reviewed and discussed with Vascular Surgeon, who agreed that switching eliquis to xarelto. Will have to discuss with her if she is okay with switching from plavix to brilanta. Code(s): I73.9 - Peripheral vascular disease, unspecified Category: Medical (6) Dyslipidemia: Comment: - Continue atorvastatin. Code(s): E78.5 - Hyperlipidemia, unspecified Category: Medical Plan: Health Maintenance: - Patient advised to follow up with his cloth shrinking tester for management of uncontrolled diabetes. - Follow-up appointment scheduled in two weeks to reassess symptoms. Patient was informed and verbally consented to the use of an ambient scribe for clinic note documentation during this visit. Plan I explained to the patient that his severe foot pain is likely revascularization injury, which occurs as blood flow returns to tissues that were previously deprived of oxygen. I also emphasized that his uncontrolled diabetes is likely worsening his nerve damage and pain. Regarding his itching, we discussed that it is a new symptom and we will investigate the cause through a process of elimination. I suspect it could be a rare, delayed reaction to Eliquis. Therefore, we will stop Eliquis and start Xarelto. We discussed the importance of following up with his cloth shrinking tester for better diabetes control. I reviewed his current medications and the plan for changes. I requested that he bring his to the next visit in two weeks to ensure a clear understanding of his medication plan. Medications: New rivaroxaban (Xarelto) must administer with evening meal 20 mg PO DAILY 90 tabs 0RF I73.9 - Peripheral vascular disease, unspecified cetirizine 10 mg PO DAILY PRN 90 tabs 0RF allergy symptoms Patient Instructions: - Take your last dose of Eliquis tonight and do not take it again. - Starting tomorrow morning, begin taking Xarelto 20 mg once a day. - For your itching, you can take an aqlq-aom-hvsgerg medication like Claritin (cetirizine) once a day and apply a cooling lotion like Aveeno. - Talk to your about any new laundry detergents, sheets, or towels you may have started using recently. - For severe pain in your foot, you may take one oxycodone pill, but do not take extra pregabalin. - Continue taking all your other prescribed medications for blood pressure, cholesterol, and diabetes. - It is very important that you contact your diabetes doctor (cloth shrinking tester) to schedule a visit to get your blood sugar under better control. - Schedule a follow-up appointment here in two weeks and bring your with you.
[2025-07-30 09:31] VITALS: BP 126/72; PULSE 83; RESP 18; TEMP 36.6; O2SAT 96; BMI 37.7
--- OUTSIDE RECORDS SUMMARY | 2025-07-30 10:15 | XMS_ITS | Encounter Summary ---
Author Organization [facility] Address [address] [place] [address] Care Team Providers Care Mining Support Worker Name Role Phone Unavailable Primary Care Provider Unavailabl e Encounter Details Date Type Department Care Team (Late st Contact Info) Description 07/31/2021 Scanned Document [address] [place] [id number] Provider, Generic Social History Tobacco Use [...]
--- OUTSIDE RECORDS SUMMARY | 2025-07-30 10:15 | XMS_ITS | Clinical Summary ---
Author Organization [facility] Address [address] [place] [address] Care Team Providers Care Aquatic Facility Manager Name Role Phone Unavailable Primary Care [...]
--- OUTSIDE RECORDS SUMMARY | 2025-07-30 10:15 | XMS_ITS | Clinical Summary ---
Author Organization [facility] it Address [address] [place] [address] Care Team Providers Care Licensed Nuclear Operator Name Role Phone Lázaro Dubois MD Primary Care Provider [phone] Surgical History Surgery Date Site/Laterality Comments APPENDECTOMY PROCEDURE: HISTORICAL APPENDECTOMY NOSE SURGERY PROCEDURE: OR UNLISTED PROCEDURE NOSE; COMMENT: repair deviated septum [...] age to complete this topic Care Teams Licensed Nuclear Operator Relationship Specialty Start Date End Date Lázaro Dubois MD [address] [place] [address] [place], [place] [address] PCP - General 12/12/17
--- OUTSIDE RECORDS SUMMARY | 2025-07-30 10:15 | XMS_ITS | Patient Health Record ---
Author Organization [facility] Address [address] [facility] [place] [address] Care Team Providers Care Electric Sealing Machine Operator Name Role Phone Lázaro Dubois MD Primary Care Provider Unavailab Armida Silva Unavailable [phone] Black, May Unavailable [phone] Allergies Allergen (clinical drug ingredient) Drug/Non Drug [...] day Not-Taking Mupirocin 2 % 1 application Risk Developer ally Once a day to wound; Duration: [...] Notes Problem Polyneuropathy due to diabetes mellitus ([id number]) Type 1 diabetes mellitus with polyneuropathy (E10.42) Active confirmed Problem Bilateral atherosclerosis of arteries of lower limbs ([id number] ) Atherosclerosis of cahto artery of both legs with rest pain (I70.223) Active confirmed Vital Signs Blood pressure diastolic 70 mm Hg 06/10/2025 Height 5ft 11in in 06/10/2025 Blood pressure systolic 120 mm Hg 06/10/2025 Weight 250 lbs 06/10/2025 BMI 34.86 kg/m2 06/10/2025 Encounters Encounter Location Date Provider Diagnosis [address] [address] 05/23/2025 Armida Hill Type 1 diabetes mellitus with polyneuropathy E10.42 ; Neuropathic ulcer of left foot with fat layer exposed L97.522 ; Unspecified atherosclerosis of cahto arteries of extremities, bilateral legs I70.203 ; Tinea unguium B35.1 ; Other hammer toe(s) (acquired), right foot M20.41 ; Other hammer toe(s) (acquired), left foot M20.42 and Cellulitis of left foot L03.[address] [address] 06/10/2025 Armida Hill Type 1 diabetes mellitus with polyneuropathy E10.42 ; Cellulitis of left foot L03.116 ; Unspecified atherosclerosis of cahto arteries of extremities, bilateral legs I70.203 ; Other hammer toe(s) (acquired), left foot M20.42 and Neuropathic ulcer of left foot, limited to breakdown of skin L97.521 [facility] [address] [place] [address] 05/13/2025 Armida Hill [facility] [place] [address] [place] [address] 05/14/2025 [facility] [address] [address] 05/23/2025 Armida Hill Assessments Encounter Date Diagnosis (ICD Code) Assessment Notes Treatment Notes Treatment Clinical Notes Section Notes 05/23/2025 Type 1 diabetes mellitus with polyneuropathy (ICD-10 - E10.42) 05/23/2025 Neuropathic ulcer of left foot with fat layer exposed (ICD-10 - L97.522) 06/10/2025 Cellulitis of left foot (ICD-10 - L03.116) 06/10/2025 Type 1 diabetes mellitus with polyneuropathy (ICD-10 - E10.42) 06/10/2025 Unspecified atherosclerosis of cahto arteries of extremities, bilateral legs (ICD-10 - I70.203) 05/23/2025 Unspecified atherosclerosis of cahto arteries of extremities, bilateral legs (ICD-10 - [...] X ray : Foot, right 3V 01/05/2024 [id number] NAIL, 6 OR MORE 05/31/2018 [id number] SKIN LESIONS, 2 TO 4 05/31/20 18 Next Appt Details Provider Name:Armida livingston, 08/19/2025 10:00:00 AM, [address] [facility], [place], [address], Insurance Providers Payer Name Payer Address Payer Phone Subscriber Number Group Number Insured Name Patient Relationship to Insured Coverage Start Date Coverage End Date [employer] [address] [place] [phone] [id number] Fortino Cameron Self - patient is the [...]
--- OUTSIDE RECORDS SUMMARY | 2025-07-30 10:15 | XMS_ITS | Clinical Summary ---
Author Organization [facility] Address [address] [place] [address] Care Team Providers Care Channel Marketing Manager Name Role Phone Unavailable Primary Care [...]
== END 2025-07-30 09:51 | disposition home or self-care (01) ==
LOC: HO.HMCHD 09:21
PROVIDERS: PCP Student in an Organized Health Care Education/Training Program; Visit Provider Student in an Organized Health Care Education/Training Program
DX: L29.9 Pruritus, unspecified (principal); E11.42 Type 2 diabetes mellitus with diabetic polyneuropathy; E11.65 Type 2 diabetes mellitus with hyperglycemia; Z79.4 Long term (current) use of insulin; I10 Essential (primary) hypertension; I73.9 Peripheral vascular disease, unspecified; E78.5 Hyperlipidemia, unspecified

== ENCOUNTER → 2025-07-30 09:21 | Outpatient (BNVA) | payer OTHER, SELFPAY | PROVIDERS: PCP Student in an Organized Health Care Education/Training Program; Visit Provider Student in an Organized Health Care Education/Training Program | DX: E11.42 Type 2 diabetes mellitus with diabetic polyneuropathy (principal); E11.65 Type 2 diabetes mellitus with hyperglycemia; L29.9 Pruritus, unspecified; I10 Essential (primary) hypertension; I73.9 Peripheral vascular disease, unspecified; E78.5 Hyperlipidemia, unspecified; Z79.4 Long term (current) use of insulin | CPT/HCPCS: 96127 ==

== ENCOUNTER 2025-08-13 07:50 | Outpatient (AMB) | payer OTHER, SELFPAY ==
--- NOTE | 2025-08-13 07:52 | MHC.PC.OV ---
Intake Visit Reasons: Telehealth 2 wk F/U on Rash Allergies meperidine (From DEMEROL) Allergy (Intermediate, Verified 07/30/25 09:28) BECAME VIOLENT Medication List - Last Reconciled 08/13/25 by Levy Johnson MD amitriptyline 25 mg PO BEDTIME amlodipine 2.5 mg PO BEDTIME atorvastatin 20 mg PO DAILY blood-glucose sensor (Dexcom G7 Sensor device) As directed carbamide peroxide 6.5% (Debrox) 5 drps otic (ears) Q12H 4 days cetirizine 10 mg PO DAILY PRN chlorthalidone 25 mg PO DAILY clopidogrel (Plavix) 75 mg PO DAILY 90 days FreeStyle Precision Nabil Strips (blood sugar diagnostic) once a day for calibration NS insulin aspart U-100 (Novolog FlexPen U-100 Insulin aspart) 15 units subcut TIDWM insulin glargine U-300 conc (Toujeo SoloStar U-300 Insulin) 56 units subcut DAILY Mounjaro (tirzepatide) 10 mg (0.5 mL) subcut QWEEK NS pen needle, diabetic (BD Deysi 2nd Gen Pen Needle) 5 times a day pregabalin 200 mg PO TID rivaroxaban (Xarelto) 20 mg PO DAILY Tobacco use date assessed: 07/23/25 Dental Screening Dental Screen Date: 07/23/25 HPI HPI Comments History of Present Illness Details History of Present Illness The patient is a 64-year-old male presenting with complaints of fatigue, difficulty breathing, bilateral ear pain, and persistent leg pain. He reports feeling drained and having a difficult time getting up and breathing in the mornings, which he believes started around the same time as a recent leg procedure. He has severe, painful earaches in both ears, with pain along his jawline, and denies any associated drainage. He has been using oil and some unspecified ear medicine without relief. The patient continues to experience significant pain in his legs, particularly the right leg where surgery was performed. The pain is exacerbated by prolonged standing. A recent rash has resolved completely after he took Zyrtec and stopped taking Eliquis and opioid medication. He is now taking Xarelto. He has a history of diabetes mellitus and hypertension. He has not recently contacted his diabetes doctor. Medical History: - Diabetes Mellitus - Hypertension - Post-procedural leg pain, described as reperfusion injury - History of rash, resolved after discontinuing Eliquis Surgical History: - Recent vascular surgery on the right leg. Medications: - Xarelto - Chlorthalidone - Amlodipine - Recently discontinued Eliquis - Recently discontinued opioids Social History: - The patient is scheduled to return to work soon but is considering extending his time off due to persistent leg pain. Family History: -No family history was discussed. Results -No diagnostic results were discussed. [facility] Medical History (Updated 08/13/25 @ 07:56 by Levy Johnson MD) Generalized skin eruption due to drugs and medicaments taken internally Pain in right leg Otalgia of both ears Nausea Pruritus Diabetic neuropathy PVD (peripheral vascular disease) Hypertension Diabetes Leg swelling Pre-op evaluation Tubular adenoma Positive colorectal cancer screening using Cologuard test Diabetic nephropathy associated with type 2 diabetes mellitus Pulmonary nodules History of stroke Osteoarthritis Obesity (BMI 30-39.9) Dyslipidemia 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 of both eyes Diabetic polyneuropathy associated with type 2 diabetes mellitus nursing home (current) use of insulin Vitamin D deficiency Diabetes type 2, uncontrolled Surgical History History of colonoscopy (~02/17/21) Hx of vein stripping History of uvulopalatopharyngoplasty Hx of appendectomy Family History Father Diabetes mellitus HTN (hypertension) Mother Lung disease Social History Household Members: Family Household Members Other:: and son Housing: House Do you presently have visiting nurse or other home services: No Alcohol intake: current Alcohol intake frequency: does not drink Patient Tobacco Use Status: Former Tobacco user Tobacco use type: Cigarette Cigarette Packs Per Day: 1 Years Smoked: 30 e-Cigarette/Vaping Use: Never Used service: Yes Current occupational status: employed Current occupation: [employer] Cognitive needs: No Hearing needs: No Vision needs: No Questionnaire Thrive Questionnaire Date Thrive assessed: 07/30/25 AUDIT C Alcohol Use Questionnaire (AUDIT-C) 3. How often do you have six or more drinks on one occasion?: Never Total Score: 0 ZIGGY-7 AMB Questionnaire ZIGGY-7 Date ZIGGY - 7 assessed: 07/30/25 Source: Developed by Drs. José Turner, Vonda Romero, Ion Liu and colleagues, with an educational jesse from [employer]. Review of Systems Narrative Review of Systems - Constitutional: Reports feeling drained and having difficulty getting up in the mornings. - Respiratory: Reports difficulty breathing in the morning. - Ear, Nose, Throat: Reports severe bilateral ear pain radiating to the jawline. Denies any ear drainage. - Musculoskeletal/Extremities: Reports pain in both legs, particularly the right leg, that worsens with prolonged standing. - Integumentary: Reports a recent rash that has since resolved. Physical exam (Primary Care) Tobacco/Smoking Status: Tobacco use Status Tobacco use date assessed 07/23/25 08/13/25 07:53 Patient Tobacco Use Status Former Tobacco user 08/13/25 07:53 Tobacco use type Cigarette 08/13/25 07:53 e-Cigarette/Vaping Use Never Used 08/13/25 07:53 Thrive Assessment: Date of Thrive Assessment Date Thrive assessed 07/30/25 08/13/25 07:53 Telehealth Telehealth Telehealth Platform: Telephone Location of provider rendering services: practice address Location of patient: address on file Patient Identification confirmed using: Name, : Yes Telehealth method: voice only Patient verbally consented to treatment: Yes Patient verbally consented to billing insurance company: Yes Patient informed of any privacy concerns related to visit: Yes Minutes spent on Phone/Video with Pt.: 9 Coding Level of Care Code Tele Est Pt Level 4 (33693) Complex EM visit Add On G2211 Diagnoses Otalgia of both ears H92.03 Pain in right leg M79.604 Generalized skin eruption due to drugs and medicaments taken internally L27.0 Type 2 diabetes mellitus with hyperglycemia, with long-term current use of insulin E11.65; Z79.4 Diabetes mellitus complication status: with hyperglycemia 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 - A prescription for eardrops to break down suspected cerumen will be sent to the pharmacy. - He is instructed to use the eardrops for at least four days. - If symptoms do not resolve, he should call back to schedule an in-clinic appointment in a week or two for cerumen removal. Code(s): H92.03 - Otalgia, bilateral Category: Medical (2) Pain in right leg: Comment: - The pain is assessed to be a reperfusion injury following his recent vascular surgery. - The patient was advised to consider extending his time off from work if he is not ready to return. - He was instructed to remain active but to avoid overexertion if in significant pain. - He is advised to contact his vascular surgeon for further management. Code(s): M79.604 - Pain in right leg Category: Medical (3) Generalized skin eruption due to drugs and medicaments taken internally: Comment: - The patient's rash resolved after discontinuing Eliquis and taking Zyrtec. - Eliquis is noted as the probable cause, and the patient is advised to avoid it in the future and list it as an allergy. Code(s): L27.0 - Generalized skin eruption due to drugs and medicaments taken internally Category: Medical (4) Diabetes: Comment: - The patient's diabetes is uncontrolled and contributing to his neuropathy. - The patient was advised to contact his multimedia educational specialist to establish a better medication regimen for improved glycemic control (as discussed previously) - He will continue his current regimen of Novolog, glargine, and Mounjaro. - It is unclear of his home sugars and his last A1c being 7.9 in February. 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 - Medications confirmed with Code(s): I10 - Essential (primary) hypertension Category: Medical Qualifiers: Hypertension type: essential hypertension Qualified Code(s): I10 - Essential (primary) hypertension (6) Dyslipidemia: Comment: - Continue atorvastatin. Code(s): E78.5 - Hyperlipidemia, unspecified Category: Medical (7) Diabetic neuropathy: Comment: - The severe foot pain is assessed as revascularization pain, a known complication following surgery to restore blood flow to ischemic tissues. - This is compounded by underlying neuropathy from uncontrolled diabetes. - The plan is to continue amitriptyline and pregabalin 600 mg for pain management, with the caution not to take excessive doses of pregabalin. - Oxycodone may be used sparingly for severe pain. - The patient was counseled that this pain is part of the healing process. Code(s): E11.40 - Type 2 diabetes mellitus with diabetic neuropathy, unspecified Category: Medical Qualifiers: Diabetes mellitus complication detail: diabetic polyneuropathy Diabetes mellitus type: type 2 Qualified Code(s): E11.42 - Type 2 diabetes mellitus with diabetic polyneuropathy Plan I spoke with the patient via telephone to address his complaints of exhaustion, bilateral ear pain, and ongoing leg pain. For the ear pain, I explained that it is likely due to wax buildup and prescribed eardrops, advising him to follow up in the clinic in 1-2 weeks if there is no improvement. Regarding his leg pain, I explained that this is likely a reperfusion injury from his recent surgery, a process which can take time to resolve. I advised him not to overdo it, to consider extending his work leave if needed, and to contact his vascular surgeon. We discussed that his recent rash, which has now resolved, was an apparent allergic reaction to Eliquis, and I instructed him to avoid this medication in the future. I strongly encouraged him to contact his diabetes doctor to seek a better regimen for glycemic control. Finally, I reminded him to continue taking his blood pressure medications regularly. Medications: New carbamide peroxide 6.5% (Debrox) 5 drps otic (ears) Q12H 15 mL 0RF 4 days Patient Instructions: - Try using Q-tips to gently clean your ears. - I have sent a prescription for eardrops to [facility] in [place]. Please pick them up and use them for at least 4 days to help break down any wax. - If the ear pain does not get better after using the drops, please call our office to schedule a visit in one or two weeks. - Do not push yourself to go back to work if your leg pain is still severe. You may need to extend your time off. - It is important to stay active, but do not do so much that it causes you a lot of pain. - Please contact your vascular surgeon to discuss your ongoing leg pain. - Remember that you had a reaction to the medication Eliquis. Do not take it again in the future. - Call your diabetes doctor tomorrow to make an appointment to get your blood sugars under better control. - Continue taking your blood pressure pills (chlorthalidone and amlodipine) as prescribed.
--- OUTSIDE RECORDS SUMMARY | 2025-08-13 11:29 | XMS_ITS | Clinical Summary ---
Author Organization [facility] Address [address] [place] [address] Care Team Providers Care Strategic Consultant Name Role Phone Unavailable Primary Care Provider [...]
--- OUTSIDE RECORDS SUMMARY | 2025-08-13 11:29 | XMS_ITS | Clinical Summary ---
Author Organization [facility] Address [address] [place] [address] Care Team Providers Care Operator Command Support Systems Name Role Phone Lázaro Dubois MD Primary Care Provider [phone] Surgical History Surgery Date Site/Laterality Comments APPENDECTOMY PROCEDURE: HISTORICAL APPENDECTOMY NOSE SURGERY PROCEDURE: ND UNLISTED PROCEDURE NOSE; COMMENT: repair deviated septum [...] Depression Screening 09/26/2024 COVID-19 Vaccine (1 - 2024-2 6 season) 2025 Influenza Vaccine (#1) 2025 9, [...] age to complete this topic Care Teams Operator Command Support Systems Relationship Specialty Start Date End Date Lázaro Dubois MD [address] [place] [address] [place], [place] [address] PCP - General 12/12/17
--- OUTSIDE RECORDS SUMMARY | 2025-08-13 11:30 | XMS_ITS | Clinical Summary ---
Author Organization [facility] Address [address] [place] [address] Care Team Providers Care Manager Foreign Name Role Phone Unavailable Primary Care Provider [...]
--- OUTSIDE RECORDS SUMMARY | 2025-08-13 11:30 | XMS_ITS | Encounter Summary ---
Author Organization [facility] Address [address] [place] [address] Care Team Providers Care Business Administration Program Chair Name Role Phone Unavailable Primary Care Provider Unavailabl e Encounter Details Date Type Department Care Team (Late st Contact Info) Description 07/31/2021 Scanned Document [address] [place] [id number] Provider, Generic Social History Tobacco Use [...]
== END 2025-08-13 07:57 | disposition home or self-care (01) ==
LOC: HO.HMCHD 07:50
PROVIDERS: PCP Student in an Organized Health Care Education/Training Program; Visit Provider Student in an Organized Health Care Education/Training Program
DX: E11.65 Type 2 diabetes mellitus with hyperglycemia (principal); Z79.4 Long term (current) use of insulin; E11.42 Type 2 diabetes mellitus with diabetic polyneuropathy; H92.03 Otalgia, bilateral; M79.604 Pain in right leg; L27.0 Generalized skin eruption due to drugs and medicaments taken internally; I10 Essential (primary) hypertension; E78.5 Hyperlipidemia, unspecified